=== PATIENT | female | born 1940 | race Caucasian/White ===

== ENCOUNTER 2018-10-20 11:50 | Inpatient (IN) ==
--- NOTE | 2018-10-20 11:52 | Emergency Department Note ---
Disposition Clinical Impression: Hypoxia, Pleural effusion Pneumonia Qualifiers: Pneumonia type: due to unspecified organism Laterality: left Lung location: lower lobe of lung Qualified Code(s): J18.1 - Lobar pneumonia, unspecified organism Disposition: Admitted As Inpatient Time of Disposition: 16:48 General Adult HPI - General Time Seen by Provider: 10/20/18 11:51 - Related Data Home Medications Medication Instructions Recorded Confirmed Donepezil HCl [Aricept] 0 mg PO DAILY 06/01/17 06/01/17 Memantine [Namenda] 0 mg PO HS 06/01/17 06/01/17 Simvastatin [Zocor] 0 mg PO HS 06/01/17 06/01/17 Allergies Allergy/AdvReac Type Severity Reaction Status Date / Time No Known Allergies Allergy Verified 05/31/17 20:54 Past Medical History - Past Medical History Medical history: Reports: dementia - Social History Smoking Status: Never smoker Alcohol use: Reports: rarely Drug use: Reports: none Course Vital Signs Temperature 97.5 F L 10/20/18 11:51 Pulse Rate 88 10/20/18 11:51 Respiratory Rate 14 10/20/18 11:51 Blood Pressure 134/59 10/20/18 11:51 O2 Sat by Pulse Oximetry 94 10/20/18 11:51 Temperature 97.5 F L 10/20/18 11:51 Pulse Rate 74 10/20/18 15:02 Respiratory Rate 24 10/20/18 16:22 Blood Pressure 127/91 10/20/18 15:02 O2 Sat by Pulse Oximetry 100 10/20/18 16:22 Oxygen Delivery Oxygen Delivery Non Rebreather Mask Medical Decision Making - Lab Data Result diagrams: 10/20/18 12:40 10/20/18 12:40 Lab Results 10/20/18 10/20/18 10/20/18 Range/Units 12:40 12:40 12:40 WBC 8.2 (4.3-11.1) K/mcL RBC 4.74 (3.82-4.97) M/mcL Hgb 13.5 (11.5-15.4) g/dL Hct 44.2 (35.3-44.9) % MCV 93.2 (83.0-100.0) fL MCH 28.5 (28.0-33.3) pg MCHC 30.5 L (31.6-35.5) g/dL RDW 13.1 (11.5-14.5) % Plt Count 175 (140-400) K/mcL MPV 9.8 (9.4-12.4) fL Immature Gran % 0.4 (0-4) % Seg Neutrophils % 83.4 % Lymphocytes % 7.3 % Monocytes % 8.7 % Eosinophils % 0.1 % Basophils % 0.1 % Neutrophils # 6.8 (1.6-8.9) K/mcL Lymphocytes # 0.6 (0.6-4.6) K/mcL Monocytes # 0.7 (0.0-1.3) K/mcL Eosinophils # 0.0 (0.0-0.6) K/mcL Basophils # 0.0 (0.0-0.2) K/mcL Sodium 140 (136-145) mEq/L Potassium 3.3 L (3.5-5.1) mEq/L Chloride 98 (98-107) mEq/L Carbon Dioxide 35 H (23-29) mEq/L BUN 17 (8-23) mg/dL Creatinine 0.74 (0.60-1.20) mg/dL Est GFR ( Amer) > 60 (> 60) Est GFR (Non-Af Amer) > 60 (> 60) BUN/Creatinine Ratio 23 (6-26) Glucose 126 H (70-105) mg/dL Calculated Osmolality 293 (280-300) Lactic Acid (0.5-2.2) mmol/L Calcium 9.1 (8.6-10.3) mg/dL Magnesium 2.0 (1.6-2.6) mg/dL Troponin I < 0.03 (< 0.04) ng/mL B-Natriuretic Peptide 64 (Less than 100) pg/mL 10/20/18 Range/Units 12:40 WBC (4.3-11.1) K/mcL RBC (3.82-4.97) M/mcL Hgb (11.5-15.4) g/dL Hct (35.3-44.9) % MCV (83.0-100.0) fL MCH (28.0-33.3) pg MCHC (31.6-35.5) g/dL RDW (11.5-14.5) % Plt Count (140-400) K/mcL MPV (9.4-12.4) fL Immature Gran % (0-4) % Seg Neutrophils % % Lymphocytes % % Monocytes % % Eosinophils % % Basophils % % Neutrophils # (1.6-8.9) K/mcL Lymphocytes # (0.6-4.6) K/mcL Monocytes # (0.0-1.3) K/mcL Eosinophils # (0.0-0.6) K/mcL Basophils # (0.0-0.2) K/mcL Sodium (136-145) mEq/L Potassium (3.5-5.1) mEq/L Chloride (98-107) mEq/L Carbon Dioxide (23-29) mEq/L BUN (8-23) mg/dL Creatinine (0.60-1.20) mg/dL Est GFR ( Amer) (> 60) Est GFR (Non-Af Amer) (> 60) BUN/Creatinine Ratio (6-26) Glucose (70-105) mg/dL Calculated Osmolality (280-300) Lactic Acid 2.2 (0.5-2.2) mmol/L Calcium (8.6-10.3) mg/dL Magnesium (1.6-2.6) mg/dL Troponin I (< 0.04) ng/mL B-Natriuretic Peptide (Less than 100) pg/mL Attestation Statement - Attestation Attestation: I reviewed the residents documentation and agree with the residents assessment and plan of care. I have personally had face to face time with the patient. (Brief History, Brief Exam, and MDM) I personally supervised and was present for the hogan/critical portions of the following procedures completed by the residen t: (add procedures performed here). [id number] time provided Patient arrives by EMS complaining of respiratory symptoms. She appears in no acute respiratory distress upon arrival. I attest to supervising resident physician's interpretation of the ECG
--- NOTE | 2018-10-20 12:00 | Emergency Department Note ---
Disposition Clinical Impression: Pneumonia, Hypoxia, Pleural effusion Disposition: Admitted As Inpatient Time of Disposition: 14:38 General Adult HPI - General Time Seen by Provider: 10/20/18 11:51 Source: family, EMS Mode of arrival: EMS Limitations: no limitations Nursing Notes Reviewed: Yes Vital Signs Reviewed: Yes - History of Present Illness HPI Narrative: 78F with PMHx of dementia presents to the emergency department via EMS from [facility] with the complaint of hypoxia and suspected pneumonia. Patient is unable to give any reliable history secondary to her history of dementia. Daughter is in room and states that the patient has been coughing more than normal lately and she is not normally on oxygen at [place] but she had been hypoxic today and requiring oxygen. Upon arrival EMS noted that she was hypoxic on 5 L nasal cannula. The highest she was 4 EMS was 95%. Patient denies any complaints at this time. Patient has been referred to pulmonology but will not be able to see them until December, her last chest x-ray taken less than a month ago suggests obtaining a noncontrast CT scan for further evaluation of her lung status as she has chronic calcifications and other infiltrates. - Related Data Home Medications Medication Instructions Recorded Confirmed Donepezil HCl [Aricept] 0 mg PO DAILY 06/01/17 06/01/17 Memantine [Namenda] 0 mg PO HS 06/01/17 06/01/17 Simvastatin [Zocor] 0 mg PO HS 06/01/17 06/01/17 Allergies Allergy/AdvReac Type Severity Reaction Status Date / Time No Known Allergies Allergy Verified 05/31/17 20:54 Limitations: ROS unobtainable due to patients medical condition Past Medical History - Past Medical History Source: old records reviewed, obtained from family Medical history: Reports: dementia - Social History Smoking Status: Never smoker Alcohol use: Reports: rarely Drug use: Reports: none Physical Exam - General Limitations: no limitations General appearance: alert, in no apparent distress - Head Head exam: atraumatic, normocephalic - Eye Eye exam: Present: normal appearance, EOMI - Chest Chest inspection: Present: normal inspection. Absent: tenderness, rash - Respiratory Respiratory exam: Present: other (diminished breath sounds throughout all lung michele). Absent: respiratory distress, wheezes, accessory muscle use - Cardiovascular Cardiovascular exam: Present: regular rate, normal rhythm - Abdominal Exam Abdominal exam: Present: soft, Non-Tender. Absent: distention, guarding, rebound, rigidity - Extremities Exam Extremities exam: Present: normal inspection. Absent: tenderness, pedal edema - Neurological Exam Neurological exam: Present: alert, oriented X3 - Psychiatric Psychiatric exam: Present: normal affect, normal mood - Skin Skin exam: Present: warm, dry, intact Course Vital Signs Temperature 97.5 F L 10/20/18 11:51 Pulse Rate 88 10/20/18 11:51 Respiratory Rate 14 10/20/18 11:51 Blood Pressure 134/59 10/20/18 11:51 O2 Sat by Pulse Oximetry 94 10/20/18 11:51 Temperature 97.5 F L 10/20/18 11:51 Pulse Rate 75 10/20/18 14:14 Respiratory Rate 26 10/20/18 14:14 Blood Pressure 117/56 10/20/18 14:14 O2 Sat by Pulse Oximetry 83 10/20/18 14:14 Oxygen Delivery Oxygen Delivery Room Air Medical Decision Making - MDM Narrative Medical decision making narrative: [facility] with hypoxia and suspected pneumonia. I asked her chest x-rays in the past that showed calcified lesions we will obtain a CAT scan of her chest for further clarification of these lesions and to better demonstrate her lung condition. We will also obtain basic labs, EKG, troponin, lactic and blood cultures due to the patient being from a jail. 1352 - patient's CAT scan demonstrates signs of a left pleural effusion with associated pneumonia. Labs do not show any acute abnormalities. Patient will be started on then, Zosyn and Levaquin for her healthcare associated pneumonia. Disposition will be to admit the patient to the hospital due to her hypoxemia and pneumonia. She is currently satting 99% on nonrebreather. 1436 - patient was taken off the nonrebreather to see what her oxygenation status was on room air and it was measured at 83%. Patient will be placed back on the nonrebreather this was helping with her breathing status. Family would like to have pulmonology see her while she is in the hospital therefore we have placed upon consult and Dr. Philip was made aware of this patient. pt has been accepted to the hospital by Dr. Pichardo - Medical Records Medical records reviewed: Yes I reviewed the patient's medical records. - Lab Data Lab results reviewed: Yes I reviewed the patient's lab results. Result diagrams: 10/20/18 12:40 10/20/18 12:40 Lab Results 10/20/18 10/20/18 10/20/18 Range/Units 12:40 12:40 12:40 WBC 8.2 (4.3-11.1) K/mcL RBC 4.74 (3.82-4.97) M/mcL Hgb 13.5 (11.5-15.4) g/dL Hct 44.2 (35.3-44.9) % MCV 93.2 (83.0-100.0) fL MCH 28.5 (28.0-33.3) pg MCHC 30.5 L (31.6-35.5) g/dL RDW 13.1 (11.5-14.5) % Plt Count 175 (140-400) K/mcL MPV 9.8 (9.4-12.4) fL Immature Gran % 0.4 (0-4) % Seg Neutrophils % 83.4 % Lymphocytes % 7.3 % Monocytes % 8.7 % Eosinophils % 0.1 % Basophils % 0.1 % Neutrophils # 6.8 (1.6-8.9) K/mcL Lymphocytes # 0.6 (0.6-4.6) K/mcL Monocytes # 0.7 (0.0-1.3) K/mcL Eosinophils # 0.0 (0.0-0.6) K/mcL Basophils # 0.0 (0.0-0.2) K/mcL Sodium 140 (136-145) mEq/L Potassium 3.3 L (3.5-5.1) mEq/L Chloride 98 (98-107) mEq/L Carbon Dioxide 35 H (23-29) mEq/L BUN 17 (8-23) mg/dL Creatinine 0.74 (0.60-1.20) mg/dL Est GFR ( Amer) > 60 (> 60) Est GFR (Non-Af Amer) > 60 (> 60) BUN/Creatinine Ratio 23 (6-26) Glucose 126 H (70-105) mg/dL Calculated Osmolality 293 (280-300) Lactic Acid (0.5-2.2) mmol/L Calcium 9.1 (8.6-10.3) mg/dL Magnesium 2.0 (1.6-2.6) mg/dL Troponin I < 0.03 (< 0.04) ng/mL B-Natriuretic Peptide 64 (Less than 100) pg/mL 10/20/18 Range/Units 12:40 WBC (4.3-11.1) K/mcL RBC (3.82-4.97) M/mcL Hgb (11.5-15.4) g/dL Hct (35.3-44.9) % MCV (83.0-100.0) fL MCH (28.0-33.3) pg MCHC (31.6-35.5) g/dL RDW (11.5-14.5) % Plt Count (140-400) K/mcL MPV (9.4-12.4) fL Immature Gran % (0-4) % Seg Neutrophils % % Lymphocytes % % Monocytes % % Eosinophils % % Basophils % % Neutrophils # (1.6-8.9) K/mcL Lymphocytes # (0.6-4.6) K/mcL Monocytes # (0.0-1.3) K/mcL Eosinophils # (0.0-0.6) K/mcL Basophils # (0.0-0.2) K/mcL Sodium (136-145) mEq/L Potassium (3.5-5.1) mEq/L Chloride (98-107) mEq/L Carbon Dioxide (23-29) mEq/L BUN (8-23) mg/dL Creatinine (0.60-1.20) mg/dL Est GFR ( Amer) (> 60) Est GFR (Non-Af Amer) (> 60) BUN/Creatinine Ratio (6-26) Glucose (70-105) mg/dL Calculated Osmolality (280-300) Lactic Acid 2.2 (0.5-2.2) mmol/L Calcium (8.6-10.3) mg/dL Magnesium (1.6-2.6) mg/dL Troponin I (< 0.04) ng/mL B-Natriuretic Peptide (Less than 100) pg/mL - Radiology Data Radiology results reviewed: Yes I reviewed the patient's radiology results. - EKG Data EKG #1 EKG attestation: Yes I reviewed and interpreted this EKG. EKG results narrative: EKG obtained at 1206 on Heart rate 85 bpm, CO interval 145, QRS duration 87, QT 368, QTC 438 Sinus rhythm with 1 PVC noted. No signs of ST segment elevations or depressions. No other T-wave abnormalities. No significant changes when compared to previous EKG dated 06/01/2017.
[2018-10-20] MEDS ORDERED: Piperacillin/Tazobactam 3.375 GM in 0.9 % Sodium Chloride Mini Bag 100 ML IVPB ONE (13:01)
[2018-10-20] MEDS ORDERED: levoFLOXacin 750 MG/150 ML 750 MG/150 ML BAG IVPB ONE (13:01)
[2018-10-20 13:03] LABS: Basophils % 0.1 %; Eosinophils % 0.1 %; Hematocrit 44.2 % (35.3-44.9); Hemoglobin 13.5 g/dL (11.5-15.4); Immature Granulocytes % 0.4 % (0-4); Lymphocytes # 0.6 K/mcL (0.6-4.6); Lymphocytes % 7.3 %; Mean Corpuscular HGB Conc 30.5 g/dL (31.6-35.5); Mean Corpuscular Hemoglobin 28.5 pg (28.0-33.3); Mean Corpuscular Volume 93.2 fL (83.0-100.0); Mean Platelet Volume 9.8 fL (9.4-12.4); Monocytes # 0.7 K/mcL (0.0-1.3); Monocytes % 8.7 %; Neutrophils # 6.8 K/mcL (1.6-8.9); Platelet Count 175 K/mcL (140-400); Red Blood Count 4.74 M/mcL (3.82-4.97); Red Cell Distribution Width 13.1 % (11.5-14.5); Segmented Neutrophils % 83.4 %; White Blood Count 8.2 K/mcL (4.3-11.1)
[2018-10-20 13:21] LABS: BUN/Creatinine Ratio 23 (6-26); Blood Urea Nitrogen 17 mg/dL (8-23); Calcium 9.1 mg/dL (8.6-10.3); Carbon Dioxide 35 mEq/L (23-29); Chloride 98 mEq/L (98-107); Glucose 126 mg/dL (70-105); Osmolality,Calculated 293 (280-300); Potassium 3.3 mEq/L (3.5-5.1); Sodium 140 mEq/L (136-145); eGFR For African Americans > 60 (> 60); eGFR For Non-African Americans > 60 (> 60)
[2018-10-20 13:23] LABS: Troponin I < 0.03 ng/mL (< 0.04)
--- NOTE | 2018-10-20 13:49 | Electrocardiograph Report ---
[address] [place] [address] Test Date: 2018-10-20 Pat Name: Nicky Shannon Department: [id number] Room: Gender: F General Internist And Physician Leader: : 1940 Requested By: Analilia Parr Order Number: [id number] Reading MD: Zaida Hutchinson Measurements Intervals [place] Rate: 85 P: 47 WV: 145 QRS: 25 QRSD: 87 T: 72 QT: 368 QTc: 438 Interpretive Statements Sinus rhythm Ventricular premature complex Left atrial enlargement Anteroseptal infarct, age indeterminate Electronically Signed On 10-20-2018 13:47:16 EDT by Zaida Hutchinson
[2018-10-20] MEDS ORDERED: Naloxone 0.4 MG/ML INJ IVP PRN (15:54)
[2018-10-20] MEDS ORDERED: Ipratropium/Albuterol Neb 3 ML IH ONE (15:54)
--- NOTE | 2018-10-20 16:15 | Internal Med History&Physical ---
Date of Encounter: 10/20/18 Time of Encounter: 16:10 Internal Medicine - H&P: HPI Chief complaint: Shortness of breath Admitted From: Long-term Nursing Facility Plans for Post Hospital Care: Transfer Long Term Facility History of present illness: Ms. Shannon is a 78 year old female with a past medical history of recurrent pneumonias, hypertension, hyperlipidemia, mild to moderate dementia, status post right radical mastectomy for breast cancer (remote history). She presented with progressively worsening shortness of breath of about 3 weeks' duration. Per patient's daughter who is a home health nurse, she was informed by the senior living about 2 weeks ago that her mother has been observed to be more short of breath than usual and chest x-rays performed showed a pneumonia with some effusion. Patient was started on Levaquin and steroids but has progressively worsened and desaturated into the 80s today which prompted senior living staff to transfer her for further management. Patient denies chest pain, palpitations, fever and chills. She admits occasional productive cough. She describes as thick and yellow. Past Med Surg Social Fam HX - Past Medical History Medical history: cancer (Right breast. Status post radical mastectomy), COPD, dementia, hyperlipidemia, hypertension Psychiatric history: no psych history - Past Surgical History Additional surgical history: Abdominal Anurism, Right side mastectomy, Right Knee Replacement - Social History Smoking Status: Former smoker Packs per day: Used to smoke a pack per day until she quit 20 years ago Alcohol use: rarely Drug use: none - Additional Family History Additional family history: No family history of malignancies. Internal Medicine - H&P: Meds Donepezil HCl [Aricept] 0 mg PO DAILY 06/01/17 [History] Memantine [Namenda] 0 mg PO HS 06/01/17 [History] Simvastatin [Zocor] 0 mg PO HS 06/01/17 [History] Allergy/AdvReac Type Severity Reaction Status Date / Time No Known Allergies Allergy Verified 05/31/17 20:54 All Systems PM: A 10-system review of systems was performed and is negative for pertinent findings except as documented above in the HPI. Review of systems: GENERAL: No fever and chills HEENT: No rhinorrhea, No sore throat, No ear pain or discharge, No dysphagia or odynophagia PULMONARY: Admits occasional productive cough, No chest pain, admits dyspnea on exertion CARDIOVASCULAR: No chest pain, no palpitations, , No PND, admits orthopnea GASTROINTESTINAL: No abdominal pain, No nausea, No vomiting, No constipation, No diarrhea, No hematemesis, No hematochezia MUSKULOSKELETAL: Patient has observed occasional pedal swelling but not currently, No pain INTEGUMENTARY: No new skin lesions NERVOUS SYSTEM: No Dizziness, No weakness, No slurred speech, No diplopia or blurred/ loss vision, No numbness, No tinglng sensation. - Constitutional Vitals: Temp Pulse Resp BP Pulse Ox 36.4 C L 74 24 127/91 98 10/20/18 11:51 10/20/18 15:02 10/20/18 15:02 10/20/18 15:02 10/20/18 15:02 Exam: GENERAL: Mild respiratory distress on a rebreather mask. Alert and Oriented 2 (baseline) HEENT: EOMI, PERRLA MOUTH: Moist oral mucosa NECK:No JVD, No lymph nodes. CHEST AND LUNGS: Normal breath sounds, no wheezes or crackles HEART: S1 and S2 normal, no murmurs ABDOMEN: Soft, nontender, no organomegaly SKIN: Normal color, no rahses, no lesions EXTREMITIES: No deformity, no edema, no tenderness, no joint swelling or clubbing NEUROLOGICAL: Oriented to place and person but not to time normal motor and sensory exam. PSYCHE: Pleasant Internal Med - H&P Results - Labs CBC & Chem 7: 10/20/18 12:40 10/20/18 12:40 Labs: Short CBC 10/20/18 Range/Units 12:40 WBC 8.2 (4.3-11.1) K/mcL Hgb 13.5 (11.5-15.4) g/dL Hct 44.2 (35.3-44.9) % Plt Count 175 (140-400) K/mcL Neutrophils # 6.8 (1.6-8.9) K/mcL BMP 10/20/18 12:40 Sodium 140 Potassium 3.3 L Chloride 98 Carbon Dioxide 35 H BUN 17 Creatinine 0.74 Glucose 126 H Calcium 9.1 Cardiac Enzymes 10/20/18 Range/Units 12:40 Troponin I < 0.03 (< 0.04) ng/mL - Impressions ITS Impressions Chest CT 10/20/18 11:58 IMPRESSION: 1. Moderate-sized left pleural effusion, with findings concerning for left lower lobe pneumonia. Radiographic follow-up until resolution is recommended. 2. Small pericardial effusion. 3. Moderate to severe emphysema. 4. Coronary atherosclerosis. D/ / 10/20/2018 12:58:57 Isaac Chapman MD / bcarter Interpreting Provider: Isaac Chapman MD - Assessment and Plan (1) Acute on chronic respiratory failure with hypoxia and hypercapnia Current Visit: Yes Status: Acute Assessment and plan: Patient is a former smoker who used to smoke a pack a day and quit about 20 years ago. She presented with progressively worsening shortness of breath and required intranasal oxygen today to keep her saturation above 83%. I suspect patient has chronic CO2 retention because her chemistry profile shows metabolic alkalosis. On encounter patient was saturating 98% on 4 L with a rebreather mask. CT scan on admission shows moderate-sized pleural effusion, with findings concerning for left lower lobe pneumonia. Small pericardial effusion. Moderate to severe emphysema. Coronary atherosclerosis. WBC normal, vitals stable. We will continue to titrate oxygen per patient's needs. Pulmonology consulted for pleural effusion. Antibiotics for pneumonia. She received Zosyn and Levaquin in the ER. Will switch to ceftriaxone and azithromycin. (2) Pneumonia Current Visit: Yes Status: Acute Assessment and plan: Management as above. CT findings concerning for left lower lobe pneumonia. We will be switching Zosyn and Levaquin to ceftriaxone and azithromycin. Qualifiers: Pneumonia type: due to unspecified organism Laterality: left Lung locat ion: lower lobe of lung Qualified Code(s): J18.1 - Lobar pneumonia, unspecified organism (3) Pleural effusion Current Visit: Yes Status: Acute Assessment and plan: Patient has a history of recurrent pneumonias and right breast cancer status post radical mastectomy. I personally looked at the chest CT scan. There is a moderate to large sized pleural effusion on the left. Pulmonology consulted. (4) COPD exacerbation Current Visit: Yes Status: Acute Assessment and plan: Also patient denies a history of COPD. She has a significant smoking history and CT findings of moderate to severe emphysema. No wheezing on auscultation We will start as needed breathing treatments. Decision of steroids will be left pulmonology (5) Aortic stenosis Current Visit: Yes Status: Suspected Assessment and plan: Patient has a loud systolic murmur in the second right intercostal space radiating to carotids. Patient and daughter admits occasional bipedal swelling. She denies palpitat ions and lightheadedness. We will order an echo. Qualifiers: Cardiac valve disease etiology: etiology unspecified Qualified Code(s): I35.0 - Nonrheumatic aortic (valve) stenosis (6) Hypertension Current Visit: Yes Status: Chronic Assessment and plan: Resume home meds Monitor. Qualifiers: Hypertension type: essential hypertension Qualified Code(s): I10 - Essential (primary) hypertension (7) Hyperlipidemia Current Visit: Yes Status: Chronic Assessment and plan: Resume statins. Qualifiers: Hyperlipidemia type: mixed hyperlipidemia Qualified Code(s): E78.2 - Mixed hyperlipidemia (8) Dementia Current Visit: Yes Status: Chronic Assessment and plan: Patient currently not on any meds. According to daughter they tried using donepezil patches which patient had severe allergic reactions to. Qualifiers: Dementia type: unspecified type Dementia behavioral disturbance: without behavioral disturbance Qualified Code(s): F03.90 - Unspecified dementia withou t behavioral disturbance (9) Hypokalemia Current Visit: Yes Status: Acute Assessment and plan: Patient has a potassium of 3.3 We will correct Monitor. (10) DVT prophylaxis Current Visit: Yes Status: Acute Assessment and plan: Subcutaneous heparin - Time Spent With Patient Total time spent is greater than 50% in coordination of care (as documented) at patient's floor/unit and/or counseling patient:
[2018-10-20] MEDS ORDERED: Ipratropium/Albuterol Neb 3 ML IH PRN (16:58)
[2018-10-20 17:02] LABS: Bilirubin,Urine Negative (Negative); Blood,Urine Negative (Negative); Clarity,Urine Clear (Clear); Color,Urine Yellow (Yellow); Glucose,Urine (UA) Normal (Normal); Ketones,Urine Negative (Negative); Leukocyte Esterase,Urine Negative (Negative); Nitrite,Urine Negative (Negative); PH,Urine 5.5 pH Units (5.0-8.0); Protein,Urine Trace mg/dL (Neg-Trace); Specific Gravity,Urine 1.027 (1.010-1.025); Urobilinogen,Urine Normal (Normal)
[2018-10-20 17:19] LABS: VBG HCO3 33 mEq/L (21-27); VBG PCO2 52 mmHg (41-51); VBG PH 7.41 pH Units (7.32-7.42); VBG PO2 68 mmHg (25-50)
[2018-10-21] MEDS: *HR* Heparin 5,000 UNIT/ML VIAL SQ SCH ×4 (00:34→21:00)
[2018-10-21 03:54] LABS: ABG Base Excess 9 mEq/L (-2 to 3); ABG HCO3 34 mEq/L (21-27); ABG Oxygen Saturation 96 % (95-98); ABG PCO2 51 mmHg (35-45); ABG PH 7.43 pH Units (7.32-7.45); ABG PO2 82 mmHg (85-104); ABG TCO2 36 mEq/L (20-26)
[2018-10-21 06:46] LABS: Hematocrit 40.6 % (35.3-44.9); Hemoglobin 12.5 g/dL (11.5-15.4); Mean Corpuscular HGB Conc 30.8 g/dL (31.6-35.5); Mean Corpuscular Hemoglobin 28.8 pg (28.0-33.3); Mean Corpuscular Volume 93.5 fL (83.0-100.0); Mean Platelet Volume 9.7 fL (9.4-12.4); Platelet Count 170 K/mcL (140-400); Red Blood Count 4.34 M/mcL (3.82-4.97); Red Cell Distribution Width 13.2 % (11.5-14.5); White Blood Count 7.3 K/mcL (4.3-11.1)
[2018-10-21 07:05] LABS: BUN/Creatinine Ratio 19 (6-26); Blood Urea Nitrogen 14 mg/dL (8-23); Calcium 8.7 mg/dL (8.6-10.3); Carbon Dioxide 34 mEq/L (23-29); Chloride 100 mEq/L (98-107); Glucose 133 mg/dL (70-105); Osmolality,Calculated 294 (280-300); Potassium 4.1 mEq/L (3.5-5.1); Sodium 141 mEq/L (136-145); eGFR For African Americans > 60 (> 60); eGFR For Non-African Americans > 60 (> 60)
[2018-10-21] MEDS: cefTRIAXone 2,000 MG in Water for inj. (sterile) 20 ML IVP SCH (08:59)
[2018-10-21] MEDS ORDERED: Azithromycin 500 MG in 0.9 % Sodium Chloride 250 ML IVPB SCH (09:00)
--- NOTE | 2018-10-21 10:17 | Internal Med Progress Note ---
Hospitalist Progress Note - Encounter Date of Encounter: 10/21/18 Time of Encounter: 07:45 - Subjective Interval History: No acute events overnight. Patient admits cough and SOB but denies chest pain, fever and chills. She remains on high flow oxygen by mask. - Exam Vitals: Temp Pulse Resp BP Pulse Ox 37.0 C 88 22 139/68 94 10/21/18 06:35 10/21/18 06:35 10/21/18 06:35 10/21/18 06:35 10/21/18 08:47 Exam: GENERAL: Mild respiratory distress on high flow O2 via oxy mask. Alert and Oriented 2 (baseline) HEENT: EOMI, PERRLA MOUTH: Moist oral mucosa NECK:No JVD, No lymph nodes. CHEST AND LUNGS: Bronchial breath sounds in left middle and lower zones. No wheezing HEART: S1 and S2 normal, no murmurs ABDOMEN: Soft, nontender, no organomegaly SKIN: Normal color, no rashes, no lesions EXTREMITIES: No deformity, no edema, no tenderness, no joint swelling or clubb ing NEUROLOGICAL: Oriented to place and person but not to time. Normal motor and sensory exam. PSYCHE: Pleasant - Assessment and Plan (1) Acute on chronic respiratory failure with hypoxia and hypercapnia Current Visit: Yes Status: Acute Assessment and Plan: Currently on 12L/min O2 via oxymask. Vitals remain stable ABG showed moderate respiratory acidosis and hypoxia with normal pH. This confirms chronic CO2 retention with compensatory metabolic alkalosis. CT scan on admission shows moderate-sized pleural effusion, with findings concerning for left lower lobe pneumonia. Small pericardial effusion. Moderate to severe emphysema. Coronary atherosclerosis. WBC normal We will continue to titrate oxygen per patient's needs. Pulmonology consulted for pleural effusion. On IV Ceftriaxone and Azithromycin (2) Pneumonia Current Visit: Yes Status: Acute Assessment and Plan: Management as above. CT findings concerning for left lower lobe pneumonia. On ceftriaxone and azithromycin. (3) Pleural effusion Current Visit: Yes Status: Acute Assessment and Plan: Patient has a history of recurrent pneumonias and right breast cancer status post radical mastectomy. CT scan shows moderate to large sized pleural effusion on the left. Pulmonology consulted. (4) COPD exacerbation Current Visit: Yes Status: Acute Assessment and Plan: Also patient denies a history of COPD. She has a significant smoking history and CT findings of moderate to severe emphysema. No wheezing on auscultation We will start as needed breathing treatments. Decision of steroids will be left to pulmonology (5) Aortic stenosis Current Visit: Yes Status: Suspected Assessment and Plan: Patient has a loud systolic murmur in the second right intercostal space radiating to carotids. Echo findings: EF of 50%, moderate aortic stenosis, indeterminate left diastolic function. Normal right ventricular structure and function, mild concentric left ventricular hypertrophy, mild aortic regurg with no evidence of pulmonary hypertension We will monitor (6) Hypertension Current Visit: Yes Status: Chronic Assessment and Plan: Resume home meds Monitor. (7) Hyperlipidemia Current Visit: Yes Status: Chronic Assessment and Plan: Resume statins. (8) Dementia Current Visit: Yes Status: Chronic Assessment and Plan: Patient currently not on any meds. According to daughter they tried using donepezil patches which patient had severe allergic reactions to. Continue Memantine. (9) Hypokalemia Current Visit: Yes Status: Resolved Assessment and Plan: Resolved K 4.1 Monitor (10) DVT prophylaxis Current Visit: Yes Status: Acute Assessment and Plan: Subcutaneous heparin - Time Spent with Patient Total time spent is greater than 50% in coordination of care (as documented) at patient's floor/unit and/or counseling patient: Internal Medicine: Result - Labs CBC & Chem 7: 10/21/18 05:58 10/21/18 05:58 Labs: Short CBC 10/20/18 10/21/18 Range/Units 12:40 05:58 WBC 8.2 7.3 (4.3-11.1) K/mcL Hgb 13.5 12.5 (11.5-15.4) g/dL Hct 44.2 40.6 (35.3-44.9) % Plt Count 175 170 (140-400) K/mcL Neutrophils # 6.8 (1.6-8.9) K/mcL BMP 10/20/18 10/21/18 12:40 05:58 Sodium 140 141 Potassium 3.3 L 4.1 Chloride 98 100 Carbon Dioxide 35 H 34 H BUN 17 14 Creatinine 0.74 0.72 Glucose 126 H 133 H Calcium 9.1 8.7 Cardiac Enzymes 10/20/18 Range/Units 12:40 Troponin I < 0.03 (< 0.04) ng/mL Urine 08/26/19 Range/Units 16:46 Urine Color Yellow (Yellow) Urine Clarity Clear (Clear) Urine pH 5.5 (5.0-8.0) pH Units Ur Specific [place] 1.027 H (1.010-1.025) Urine Protein Trace (Neg-Trace) mg/dL Urine Glucose (UA) Normal (Normal) mg/dL - ABG Interpretation ABG results: ABG ABG pH 7.43 pH Units (7.32-7.45) 10/21/18 03:49 ABG pCO2 51 mmHg (35-45) H 10/21/18 03:49 ABG pO2 82 mmHg (85-104) L 10/21/18 03:49 ABG O2 Saturation 96 % (95-98) 10/21/18 03:49 - Impressions Impressions Chest CT 10/20/18 11:58 IMPRESSION: 1. Moderate-sized left pleural effusion, with findings concerning for left lower lobe pneumonia. Radiographic follow-up until resolution is recommended. 2. Small pericardial effusion. 3. Moderate to severe emphysema. 4. Coronary atherosclerosis. D/ / 10/20/2018 12:58:57 Isaac Chapman MD / yoshi Interpreting Provider: Isaac Chapman MD Echocardiogram 10/20/18 16:59 Impressions: LVEF 50%. Indeterminate diastolic function. Normal right ventricular structure and function. Mild concentric left ventricular hypertrophy. Aortic valve not well visualized. Moderate aortic stenosis. Peak aortic velocity and mean gradient are 3.26m/s and 23 mmHg, respectively. Mild aortic regurgitation. No evidence of pulmonary hypertension. Left Ventricular Wall Motion: Rest Echo Findings All wall segments showed normal motion. Findings: Study Quality * Technically sub-optimal due to poor echocardiographic windows. ECG Findings * Paced rhythm. Left Ventricle * LVEF 50%. * Normal LV chamber size. * Indeterminate diastolic function. * Atypical septal motion consistent with bundle branch block. * Mild concentric left ventricular hypertrophy. Right Ventricle * Normal right ventricular structure and function. Left Atrium * Normal left atrial size. Right Atrium * Normal right atrial size. Interatrial Septum * No evidence of PFO with agitated saline contrast. Aortic Valve * Aortic valve not well visualized. * Moderate aortic stenosis. Peak aortic velocity and mean gradient are 3.26m/s and 23 mmHg, respectively. * * Mild aortic regurgitation. Mitral Valve * Trace mitral regurgitation. * No mitral stenosis. * Mitral valve not well visualized. Tricuspid Valve * Trace tricuspid regurgitation. * No tricuspid stenosis. * No evidence of pulmonary hypertension. * Tricuspid valve not well visualized. Pulmonic Valve * Pulmonic valve not well visualized. Aorta * Normally sized aortic root. Pericardium * The pericardium appears normal. IVC * The IVC is not well evaluated. Pulmonary Artery * Pulmonary artery not well visualized. Consult Discharge Plan - Plan Referrals: Nasima Pascual, [employer] [Primary Care Provider] - (2) Pneumonia Qualifiers: Pneumonia type: due to unspecified organism Laterality: left Lung location: lower lobe of lung Qualified Code(s): J18.1 - Lobar pneumonia, unspecified organism (5) Aortic stenosis Qualifiers: Cardiac valve disease etiology: etiology unspecified Qualified Code(s): I35.0 - Nonrheumatic aortic (valve) stenosis (6) Hypertension Qualifiers: Hypertension type: essential hypertension Qualified Code(s): I10 - Essential (primary) hypertension (7) Hyperlipidemia Qualifiers: Hyperlipidemia type: mixed hyperlipidemia Qualified Code(s): E78.2 - Mixed hyperlipidemia (8) Dementia Qualifiers: Dementia type: unspecified type Dementia behavioral disturbance: without behavioral disturbance Qualified Code(s): F03.90 - Unspecified dementia without behavioral disturbance
--- NOTE | 2018-10-21 11:25 | Pulmonology Consult Note ---
<Chandu Husain - Last Filed: 10/21/18 15:10> Date of Encounter: 10/21/18 Time of Encounter: 09:00 Assessment and Plan (1) Acute on chronic respiratory failure with hypoxia and hypercapnia Current Visit: Yes Status: Acute Patient presented with acute hypoxic respiratory failure. Unable to maintain SPO2 greater than 80% prior to admission. In the ED was started on 6 L nasal cannula, SPO2 94%. Currently requiring 12 L/m O2 via oxygen mask to maintain SPO2 greater than 88%. She does have a remote history of significant tobacco abuse but denies any knowledge of COPD and does not follow with a banana handler. CT chest did reveal evidence of centrilobular as well as paraseptal emphysematous changes consistent with diagnosis of COPD. Additionally, there was a moderate left sided pleural effusion revealed with possible left lower lobe consolidation noted. ABG revealed respiratory acidosis with metabolic alkalosis and normal pH. Plan: -Diagnostic thoracentesis to be performed tomorrow morning, discussed w/POA daughter Crystal who will provide consent -Continue with oxymask and supplemental O2 to maintain SpO2 greater than 88% -Continue ABX per current regimen -Urinary Strep Pneumo and legionella antigens -Procalcitonin -Prednisone 30mg added as well (2) COPD exacerbation Current Visit: Yes Status: Acute Patient does have extensive centrilobular and paraseptal emphysematous changes on CT imaging. Has significant history of Tobacco Abuse but did quit >10yrs ago. Currently not exhibiting significant wheezing or rhonchi on exam but likely contributing to chronic respiratory failure and acutely decompensated hypoxia/hypercapnia. -Will add Presdnisone 30mg -Continue Azithromycin for additional ant-inflammatory effect in addition to atypical CAP coverage (3) Pleural effusion Current Visit: Yes Status: Acute As demonstrated on CT Chest Remote history of Breast cancer plus significant smoking history increase risk for malignant cause Plan for diagnostic thoracentesis tomorrow morning (4) Pneumonia Current Visit: Yes Status: Acute Possible Left Lower Lobe focal consolidation identified on CT Chest Afebrile, non-Tachycardic, RR normal, no WBC Risk factors include residing in long-term, recent steroid use and Severe COPD Plan: -Continue ABX per current regimen -Supplemental O2 -Rest of plan as above Qualifiers: Pneumonia type: due to unspecified organism Laterality: left Lung location: lower lobe of lung Qualified Code(s): J18.1 - Lobar pneumonia, unspecified organism History of Present Illness Consult date: 10/21/18 Reason for consult: COPD, pneumonia, pleural effusion Chief complaint: Shortness of breath History of present illness: Mrs. Shannon is an 78-year-old female with past medical history of COPD, dementia, HLD, HTN, prior tobacco abuse, remote cancer history presents with complaint of increasing shortness of breath over the previous 3 weeks. Patient resides in a long-term staff had informed daughter that patient's respiratory status had been declining and she was observed to be increasingly short of breath with worsening cough, with thick yellow sputum production. A chest x-ray was obtained by nursing staff who stated that the patient had a pneumonia with some evidence of pleural effusions. Patient was started on Levaquin and steroids but progressively worsened. Prior to admission to the emergency department patient was noted to be desaturating at 80% in the morning. Patient denies any subjective fevers, chest pain, chills, nausea, vomiting, wheezing. In the emergency department, vitals reveal heart rate 88, respiratory rate 14, blood pressure 134/59, SPO2 94% on 6 L oxygen, temperature 97.5. Labs were negative for leukocytosis, potassium was 3.3, CO2 35. ABG revealed pH 7.43, PCO2 51 and PO2 82, bicarbonate 34; consistent with respiratory acidosis and metabolic alkalosis consistent with chronic hypercapnic respiratory failure. Urinalysis was obtained and was bland. Chest CT was obtained and revealed moderate size left pleural effusion with consolidation and atelectasis in the left lower lobe. Additionally demonstrated moderate to severe emphysematous changes. Patient did receive vancomycin and Zosyn in the emergency department for possible hospital-acquired pneumonia as patient does reside in a long-term. However today patient was switched over to ceftriaxone and azithromycin. Past Med Surg Social Fam HX - Past Medical History Medical history: cancer, COPD, dementia, hyperlipidemia, hypertension Psychiatric history: no psych history - Past Surgical History Additional surgical history: Abdominal Anurism, Right side mastectomy, Right Knee Replacement - Social History Smoking Status: Former smoker Packs per day: Used to smoke a pack per day until she quit 20 years ago Alcohol use: none Drug use: none Medications and Allergies Memantine [Namenda] 5 mg PO HS 06/01/17 [History] Acetaminophen [Tylenol] 650 mg PO Q4H PRN 10/21/18 [History] Amlodipine Besylate 10 mg PO DAILY 10/21/18 [History] Atorvastatin [Lipitor] 40 mg PO HS 10/21/18 [History] Calcium Carbonate [Calcium] 1,200 mg PO DAILY 10/21/18 [History] Docusate [Colace] 200 mg PO HS PRN 10/21/18 [History] Ipratropium/Albuterol Neb [Duoneb] 3 ml IH Q4HR PRN 10/21/18 [History] MOM Conc [Milk of Magnesia Conc] 30 - 60 ml PO DAILY PRN 10/21/18 [History] Polyethylene Glycol 3350 [MiraLAX] 17 gm PO DAILY PRN 10/21/18 [History] Rivastigmine Tartrate (oral) [Exelon] 6 mg PO BID 10/21/18 [History] Sertraline [Zoloft] 25 mg PO DAILY 10/21/18 [History] traZODone [TraZODone] 50 mg PO HS 10/21/18 [History] Allergy/AdvReac Type Severity Reaction Status Date / Time No Known Allergies Allergy Verified 10/21/18 07:47 All Systems: The remainder of the systems were reviewed and are negative - Constitutional Constitutional: fatigue, no chills, no weakness - EENT Nose, mouth and throat: no dizziness, no headache(s), no sore throat - Cardiovascular Cardiovascular: dyspnea, dyspnea on exertion, no chest pain at rest, no chest pain with activity, no diaphoresis, no edema, no palpitations, no rapid heart rate, no syncope - Respiratory Respiratory: cough, dyspnea, dyspnea on exertion, excessive phlegm production, change in phlegm color, no hemoptysis, no wheezing, no pain on inspirtation, no pain with cough - Gastrointestinal Gastrointestinal: no abdominal pain, no diarrhea, no fecal incontinence, no nausea, no vomiting - Genitourinary Genitourinary: no dysuria, no flank pain Physical Examination Vital Signs: Vital Signs, Last 4 Hours Temp Pulse Resp BP Pulse Ox 10/21/18 10:38 97.9 F 85 19 137/67 94 10/21/18 08:47 94 General appearance: alert, appears uncomfortable Eyes: nonicteric ENT: oropharynx moist Neck: supple, no lymphadenopathy, no JVD Effort: mildly labored Auscultation: left: diminished breath sounds (at the bases), bilateral: clear (no wheezes rales or rhonchi) Cardiovascular: regular rate and rhythm, other (no murmurs gallops or rubs) Gastrointestinal: normoactive bowel sounds, soft, non-tender Integumentary: normal, other (no rash) Extremities: no cyanosis, pink and warm, pulses normal, edema (mild +1 peripheral edema) Musculoskeletal: no deformities Gait: other (unable to assess) non-focal exam, pupils equal and round, motor strength normal and symmetric, other (mild to moderate dementia noted) mood appropriate, affect normal Results - Laboratory Findings CBC and BMP: 10/21/18 05:58 10/21/18 05:58 ABG ABG pH 7.43 pH Units (7.32-7.45) 10/21/18 03:49 ABG pCO2 51 mmHg (35-45) H 10/21/18 03:49 ABG pO2 82 mmHg (85-104) L 10/21/18 03:49 ABG O2 Saturation 96 % (95-98) 10/21/18 03:49 Abnormal lab findings: Abnormal lab results MCHC 30.8 g/dL (31.6-35.5) L 10/21/18 05:58 ABG pCO2 51 mmHg (35-45) H 10/21/18 03:49 ABG pO2 82 mmHg (85-104) L 10/21/18 03:49 ABG HCO3 34 mEq/L (21-27) H 10/21/18 03:49 ABG Total CO2 36 mEq/L (20-26) H 10/21/18 03:49 ABG Base Excess 9 mEq/L (-2 to 3) H 10/21/18 03:49 VBG pCO2 52 mmHg (41-51) H 10/20/18 17:17 VBG pO2 68 mmHg (25-50) H 10/20/18 17:17 VBG HCO3 33 mEq/L (21-27) H 10/20/18 17:17 Potassium 3.3 mEq/L (3.5-5.1) L 10/20/18 12:40 Carbon Dioxide 34 mEq/L (23-29) H 10/21/18 05:58 Glucose 133 mg/dL (70-105) H 10/21/18 05:58 Ur Specific [place] 1.027 (1.010-1.025) H 10/20/18 16:46 - Microbiology Findings Microbiology Findings: Microbiology, Last 48 Hours 10/20/18 12:59 Blood Culture - Preliminary Peripheral Venipuncture Culture is incubating and being continuously monitored for growth. Final report to follow. 10/20/18 12:40 Blood Culture - Preliminary Peripheral Venipuncture Culture is incubating and being continuously monitored for growth. Final report to follow. - Clinical Findings Intake & Output: Intake & Output 10/20/18 10/21/18 10/21/18 23:59 07:59 15:59 Intake Total 270 / 270 Output Total 200 / 200 Balance -200 / 70 270 / 70 Consult Discharge Plan - Plan Referrals: Nasima Pascual SCIENCE INTERPRETER [Primary Care Provider] - <Familia Philip - Last Filed: 10/21/18 15:31> Date of Encounter: 10/21/18 All Systems: The remainder of the systems were reviewed and are negative Results - Laboratory Findings CBC and BMP: 10/21/18 05:58 10/21/18 05:58 ABG ABG pH 7.43 pH Units (7.32-7.45) 10/21/18 03:49 ABG pCO2 51 mmHg (35-45) H 10/21/18 03:49 ABG pO2 82 mmHg (85-104) L 10/21/18 03:49 ABG O2 Saturation 96 % (95-98) 10/21/18 03:49 Abnormal lab findings: Abnormal lab results MCHC 30.8 g/dL (31.6-35.5) L 10/21/18 05:58 ABG pCO2 51 mmHg (35-45) H 10/21/18 03:49 ABG pO2 82 mmHg (85-104) L 10/21/18 03:49 ABG HCO3 34 mEq/L (21-27) H 10/21/18 03:49 ABG Total CO2 36 mEq/L (20-26) H 10/21/18 03:49 ABG Base Excess 9 mEq/L (-2 to 3) H 10/21/18 03:49 VBG pCO2 52 mmHg (41-51) H 10/20/18 17:17 VBG pO2 68 mmHg (25-50) H 10/20/18 17:17 VBG HCO3 33 mEq/L (21-27) H 10/20/18 17:17 Potassium 3.3 mEq/L (3.5-5.1) L 10/20/18 12:40 Carbon Dioxide 34 mEq/L (23-29) H 10/21/18 05:58 Glucose 133 mg/dL (70-105) H 10/21/18 05:58 Ur Specific [place] 1.027 (1.010-1.025) H 10/20/18 16:46 - Microbiology Findings Microbiology Findings: Microbiology, Last 48 Hours 10/20/18 12:59 Blood Culture - Preliminary Peripheral Venipuncture Culture is incubating and being continuously monitored for growth. Final report to follow. 10/20/18 12:40 Blood Culture - Preliminary Peripheral Venipuncture Culture is incubating and being continuously monitored for growth. Final report to follow. - Clinical Findings Intake & Output: Intake & Output 10/20/18 10/21/18 10/21/18 23:59 07:59 15:59 Intake Total 270 / 270 Output Total 200 / 200 Balance -200 / 70 270 / 70 - Attending Attestation I examined this patient and my medical decision-making was reviewed with the Resident Physician. I agree with the documented findings, disposition and treatment plan as described except to the extent set forth below. We independently had [id number] contact with the patient Patient seen and examined at bedside Labs, radiology, chart personally reviewed. Impression/Recs: -Acute respiratory failure- stable on oxygen mask continue to wean for goals saturation greater than 88% -COPD exacerbation - add oral prednisone monitor for delirium. Schedule bronchodilators and agree with antibiotics -PNA - she is at risk for hospital associated pathogens clinically appears to be stable would continue current regimen that would be acceptable first But if any signs of deterioration would have low threshold for broadening out to cover for hospital associated pathogens such as MRSA and Pseudomonas. Strep Legionella urine antigen should be obtained check procalcitonin -Pleural Effusion unclear etiology question will diastolic heart failure although BNP is normal on today's admission cannot fully exclude malignant effusion given history of malignancy and possibly parapneumonic effusion, plan for diagnostic/therapeutic thoracentesis. The daughter who is her healthcare power of workers compensation attorney has requested to be in the room during the procedure to keep her mother calm given her advanced delirium and this is a reasonable approach. We will plan on thoracentesis tomorrow morning Thank you for the consultation
[2018-10-21] MEDS: predniSONE 10 MG TABLET PO SCH (14:18)
[2018-10-21] MEDS: Rivastigmine Tartrate (oral) 1.5 MG CAPSULE PO SCH (20:59)
[2018-10-21] MEDS: traZODone 50 MG TABLET PO SCH (20:59)
[2018-10-22] MEDS: *HR* Heparin 5,000 UNIT/ML VIAL SQ SCH ×3 (06:17→19:59)
[2018-10-22 06:29] LABS: Hematocrit 44.7 % (35.3-44.9); Hemoglobin 13.7 g/dL (11.5-15.4); Mean Corpuscular HGB Conc 30.6 g/dL (31.6-35.5); Mean Corpuscular Hemoglobin 29.1 pg (28.0-33.3); Mean Corpuscular Volume 95.1 fL (83.0-100.0); Mean Platelet Volume 9.2 fL (9.4-12.4); Platelet Count 172 K/mcL (140-400); Red Cell Distribution Width 13.2 % (11.5-14.5)
[2018-10-22 06:45] LABS: BUN/Creatinine Ratio 20 (6-26); Blood Urea Nitrogen 12 mg/dL (8-23); Calcium 9.1 mg/dL (8.6-10.3); Carbon Dioxide 37 mEq/L (23-29); Chloride 99 mEq/L (98-107); Glucose 127 mg/dL (70-105); Osmolality,Calculated 297 (280-300); Sodium 143 mEq/L (136-145); eGFR For African Americans > 60 (> 60); eGFR For Non-African Americans > 60 (> 60)
[2018-10-22] MEDS: Azithromycin 250 MG TABLET PO SCH (08:22)
[2018-10-22] MEDS: cefTRIAXone 2,000 MG in Water for inj. (sterile) 20 ML IVP SCH (08:22)
[2018-10-22] MEDS: predniSONE 10 MG TABLET PO SCH (08:23)
[2018-10-22] MEDS: amLODIPine 5 MG TABLET PO SCH (08:23)
[2018-10-22] MEDS: Rivastigmine Tartrate (oral) 1.5 MG CAPSULE PO SCH ×2 (08:23→19:58)
[2018-10-22] MEDS ORDERED: Ipratropium/Albuterol Neb 3 ML IH SCH (09:00)
[2018-10-22 09:36] LABS: INR 0.9; Prothrombin Time 10.7 Seconds (9.4-12.1)
[2018-10-22 09:38] LABS: Activated Partial Thrombo Time 37.1 Seconds (26.0-36.0)
[2018-10-22] MEDS: Ipratropium/Albuterol Neb 3 ML IH SCH ×3 (09:47→22:18)
--- NOTE | 2018-10-22 09:55 | Pulmonology Progress Note ---
<Chandu Husain M - Last Filed: 10/22/18 09:27> Date of Encounter: 10/22/18 Time of Encounter: 09:00 Assessment and Plan (1) Acute on chronic respiratory failure with hypoxia and hypercapnia Current Visit: Yes Status: Acute Patient presented with acute hypoxic respiratory failure. Unable to maintain SPO2 greater than 80% prior to admission. In the ED was started on 6 L nasal cannula, SPO2 94%. Currently requiring 12 L/m O2 via oxygen mask to maintain SPO2 greater than 88%. 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 CT chest did reveal evidence of centrilobular as well as paraseptal emphysematous changes consistent with diagnosis of COPD. Additionally, there was a moderate left sided pleural effusion revealed with possible left lower lobe consolidation noted. ABG revealed respiratory acidosis with metabolic alkalosis and normal pH. Plan: -Patient more subjectively short of breath with increased cough and mucous production today compared to yesterday -Changed Duonebs to Scheduled, was PRN -Continue supplemental O2 to maintain SpO2 greater than 88% -Continue Azithromycin/Ceftriaxone and Prednisone 30mg PO -Urinary Antigens negative for strep pneumo/legionella -Procalcitonin negative -Diagnostic thoracentesis will be performed today -Pleural studies for possible exudate be performed, patient does have risk for exudate including possible pneumonia, history of breast cancer; transudative less likely given no history of CHF (2) COPD exacerbation Current Visit: Yes Status: Acute Continue Prednisone 30mg Scheduled duonebs ordered supplemental O2 azithromycin on board rest of plan as above (3) Pleural effusion Current Visit: Yes Status: Acute Diagnostic Thoracentesis to be performed today Will send for pleural studies to evaluate for possible exudate (4) Pneumonia Current Visit: Yes Status: Acute Plan as above and per primary team Continue ABX, urinary antigens and procalcitonin negative Qualifiers: Pneumonia type: due to unspecified organism Laterality: left Lung location: lower lobe of lung Qualified Code(s): J18.1 - Lobar pneumonia, unspecified organism Subjective Principal diagnosis: Acute Respiratory Failure Interval history: Patient was seen and examined at bedside with daughter in the room this morning. Daughter reports patient was significantly short of breath overnight and bedside monitor reported heart rate greater than 100 on several occasions. However review of telemetry reveals heart rate has been normal for out the night and this was likely an equipment error. Heart rate on exam was roughly 80-90. However, Patient was considerably wheezy today and reported increasing cough, productive with copious mucus. Patient was given 1 breathing treatment this morning's result of this and reported significant improvement. SPO2 was 98% on 8 L. This is an improvement from yesterday when patient required 15 L oxygen mask to maintain SPO2 greater than 88%. Bedside thoracentesis is to be performed today pending PT/INR, platelets were normal. Objective PUL Vital signs: Last Vital Signs Temp 98.2 F 10/22/18 06:41 Pulse 99 10/22/18 06:41 Resp 18 10/22/18 06:41 BP 150/73 10/22/18 06:41 Pulse Ox 95 10/22/18 06:41 Gen.: Patient appears uncomfortable prior to breathing treatment this morning. Vitals noted in stable Head: Atraumatic, normocephalic Eyes: Anicteric sclerae, EOMI ENT: Mucous membranes moist, oropharynx clear Neck: Trachea midline, no thyromegaly or lymphadenopathy CV: Regular rate and rhythm no murmurs, gallops, rubs Resp: Diffuse wheezes with occasional rhonchi appreciated best in the right base, diminished breath sounds left lower lobe Abdomen: Soft, nontender Extremities: No edema, cyanosis, clubbing Results - Laboratory Findings CBC and BMP: 10/22/18 06:06 10/22/18 06:06 ABG ABG pH 7.43 pH Units (7.32-7.45) 10/21/18 03:49 ABG pCO2 51 mmHg (35-45) H 10/21/18 03:49 ABG pO2 82 mmHg (85-104) L 10/21/18 03:49 ABG O2 Saturation 96 % (95-98) 10/21/18 03:49 Abnormal lab findings: Abnormal lab results MCHC 30.6 g/dL (31.6-35.5) L 10/22/18 06:06 MPV 9.2 fL (9.4-12.4) L 10/22/18 06:06 ABG pCO2 51 mmHg (35-45) H 10/21/18 03:49 ABG pO2 82 mmHg (85-104) L 10/21/18 03:49 ABG HCO3 34 mEq/L (21-27) H 10/21/18 03:49 ABG Total CO2 36 mEq/L (20-26) H 10/21/18 03:49 ABG Base Excess 9 mEq/L (-2 to 3) H 10/21/18 03:49 VBG pCO2 52 mmHg (41-51) H 10/20/18 17:17 VBG pO2 68 mmHg (25-50) H 10/20/18 17:17 VBG HCO3 33 mEq/L (21-27) H 10/20/18 17:17 Potassium 3.3 mEq/L (3.5-5.1) L 10/20/18 12:40 Carbon Dioxide 37 mEq/L (23-29) H 10/22/18 06:06 Glucose 127 mg/dL (70-105) H 10/22/18 06:06 Ur Specific [place] 1.027 (1.010-1.025) H 10/20/18 16:46 - Microbiology Findings Microbiology Findings: Microbiology, Last 48 Hours 10/21/18 14:30 Legionella Antigen - Final Urine,Clean Catch Streptococcus pneumoniae Antigen (M - Final 10/20/18 12:59 Blood Culture - Preliminary Peripheral Venipuncture Culture is incubating and being continuously monitored for growth. Final report to follow. 10/20/18 12:40 Blood Culture - Preliminary Peripheral Venipuncture Culture is incubating and being continuously monitored for growth. Final report to follow. - Clinical Findings Intake & Output: Intake & Output 10/21/18 10/22/18 10/22/18 23:59 07:59 15:59 Output Total 75 / 425 Balance -75 / -155 Consult Discharge Plan - Plan Referrals: Nasima Pascual CNP [Primary Care Provider] - <Familia Philip - Last Filed: 10/22/18 11:58> Date of Encounter: 10/22/18 Objective PUL Vital signs: Last Vital Signs Temp 97.8 F 10/22/18 11:41 Pulse 84 10/22/18 11:41 Resp 18 10/22/18 11:41 BP 123/64 10/22/18 11:41 Pulse Ox 94 10/22/18 11:41 Results - Laboratory Findings CBC and BMP: 10/22/18 06:06 10/22/18 06:06 ABG ABG pH 7.43 pH Units (7.32-7.45) 10/21/18 03:49 ABG pCO2 51 mmHg (35-45) H 10/21/18 03:49 ABG pO2 82 mmHg (85-104) L 10/21/18 03:49 ABG O2 Saturation 96 % (95-98) 10/21/18 03:49 PT/INR, D-dimer PT 10.7 Seconds (9.4-12.1) 10/22/18 09:03 Abnormal lab findings: Abnormal lab results MCHC 30.6 g/dL (31.6-35.5) L 10/22/18 06:06 MPV 9.2 fL (9.4-12.4) L 10/22/18 06:06 APTT 37.1 Seconds (26.0-36.0) H 10/22/18 09:03 ABG pCO2 51 mmHg (35-45) H 10/21/18 03:49 ABG pO2 82 mmHg (85-104) L 10/21/18 03:49 ABG HCO3 34 mEq/L (21-27) H 10/21/18 03:49 ABG Total CO2 36 mEq/L (20-26) H 10/21/18 03:49 ABG Base Excess 9 mEq/L (-2 to 3) H 10/21/18 03:49 VBG pCO2 52 mmHg (41-51) H 10/20/18 17:17 VBG pO2 68 mmHg (25-50) H 10/20/18 17:17 VBG HCO3 33 mEq/L (21-27) H 10/20/18 17:17 Potassium 3.3 mEq/L (3.5-5.1) L 10/20/18 12:40 Carbon Dioxide 37 mEq/L (23-29) H 10/22/18 06:06 Glucose 127 mg/dL (70-105) H 10/22/18 06:06 Ur Specific [place] 1.027 (1.010-1.025) H 10/20/18 16:46 - Microbiology Findings Microbiology Findings: Microbiology, Last 48 Hours 10/21/18 14:30 Legionella Antigen - Final Urine,Clean Catch Streptococcus pneumoniae Antigen (M - Final 10/20/18 12:59 Blood Culture - Preliminary Peripheral Venipuncture Culture is incubating and being continuously monitored for growth. Final report to follow. 10/20/18 12:40 Blood Culture - Preliminary Peripheral Venipuncture Culture is incubating and being continuously monitored for growth. Final report to follow. - Clinical Findings Intake & Output: Intake & Output 10/21/18 10/22/18 10/22/18 23:59 07:59 15:59 Output Total 75 / 425 Balance -75 / -155 - Attending Attestation I examined this patient and my medical decision-making was reviewed with the Resident Physician. I agree with the documented findings, disposition and tr eatment plan as described except to the extent set forth below. We independently had [id number] contact with the patient Patient seen and examined at bedside Labs, radiology, chart personally reviewed. Impression/Recs: Thoracentesis was performed today at bedside without complication. We will follow up on pleural fluid studies. From antimicrobial standpoint she appears to be clinically stable and likely de-escalate to by mouth regimen would recommend completing 5 days with macrolide 5 days of with additional agent such as third-generation cephalosporin or Augmentin. 5 days of prednisone burst. And importantly she will need to schedule bronchodilators she has a good response to these.
--- NOTE | 2018-10-22 11:03 | Procedure Note ---
Date of procedure: 10/22/18 Pre-op diagnosis: Pleural Effusion Post-op diagnosis: same Procedure: A time-out was completed verifying correct patient, procedure, site, positioning, and special equipment if applicable. The procedure was guided by ultrasound and a large pocket of fluid was demonstrated by ultrasound subsequently the patients left side was prepped and draped in a sterile manner after the appropriate infiltration level was confirmed by ultrasound. 1% lidocaine was used anesthetize the surrounding skin. A finder needle was then used to locate fluid and clear yellow fluid was obtained. A 10-blade scalpel used to make the incision. The thoracentesis catheter was then threaded without difficulty. The patient had 1000mL of macarena fluid removed. A post-procedure chest x-ray was ordered and the fluid will be sent for several studies. No immediate complications Anesthesia: local Surgeon: Familia Philip Was there an medical office receptionist assistant present: No Estimated blood loss (cc): 1 Specimen: Sent (pleural fluid) Pathology: other Condition: stable Disposition: no change
[2018-10-22 12:28] LABS: Albumin 3.5 g/dL (3.5-5.7); Albumin/Globulin Ratio 1.2 (1.1-2.2); Bilirubin,Total 0.9 mg/dL (0.3-1.0); Cholesterol 224 mg/dL (< 200); Lactate Dehydrogenase 163 Units/L (140-271); Total Protein 6.5 g/dL (6.4-8.9)
[2018-10-22 12:56] LABS: RBC,Pleural Fluid 0.037 M/mcL
[2018-10-22 13:20] LABS: Total Protein,Pleural Fluid 3.6 g/dL
--- NOTE | 2018-10-22 14:15 | Internal Med Progress Note ---
Hospitalist Progress Note - Encounter Date of Encounter: 10/22/18 Time of Encounter: 09:00 - Subjective Interval History: No acute events overnight. For thoracentesis this am - Exam Vitals: Temp Pulse Resp BP Pulse Ox 97.8 F 84 18 123/64 94 10/22/18 11:41 10/22/18 11:41 10/22/18 11:41 10/22/18 11:41 10/22/18 11:41 Exam: GENERAL: Mild respiratory distress on high flow O2 via oxy mask. Alert and Oriented 2 (baseline) HEENT: EOMI, PERRLA MOUTH: Moist oral mucosa NECK:No JVD, No lymph nodes. CHEST AND LUNGS: Bronchial breath sounds in left middle and lower zones. No wheezing HEART: S1 and S2 normal, no murmurs ABDOMEN: Soft, nontender, no organomegaly SKIN: Normal color, no rashes, no lesions EXTREMITIES: No deformity, no edema, no tenderness, no joint swelling or clubbing NEUROLOGICAL: Oriented to place and person but not to time. Normal motor and sensory exam. PSYCHE: Pleasant - Assessment and Plan (1) Acute on chronic respiratory failure with hypoxia and hypercapnia Current Visit: Yes Status: Acute Assessment and Plan: Pt comes in with shortness of breath and acute hypoxic hypercapnic respiratory failure secondary to COPD exacerbation and new pleural effusion possbly 2/2 to pneumonia Continue duonebs, ceftriaxone and azithromycin and steroids For thoracentesis today (2) Pneumonia Current Visit: Yes Status: Acute Assessment and Plan: Management as above. CT findings concerning for left lower lobe pneumonia. On ceftriaxone and azithromycin. (3) Pleural effusion Current Visit: Yes Status: Acute Assessment and Plan: Patient has a history of recurrent pneumonias and right breast cancer status post radical mastectomy. CT scan shows moderate to large sized pleural effusion on the left. Pulmonology consulted and plan for thoracentesis today (4) Aortic stenosis Current Visit: Yes Status: Acute Assessment and Plan: Patient has a loud systolic murmur in the second right intercostal space radiating to carotids. Echo findings: EF of 50%, moderate aortic stenosis, indeterminate left diastolic function. Normal right ventricular structure and function, mild concentric left ventricular hypertrophy, mild aortic regurg with no evidence of pulmonary hypertension We will monitor (5) COPD exacerbation Current Visit: Yes Status: Acute Assessment and Plan: Also patient denies a history of COPD. She has a significant smoking history and CT findings of moderate to severe emphysema. Cotninue duonebs, antibiotics and steroids (6) Hypertension Current Visit: Yes Status: Chronic Assessment and Plan: Resume home meds Monitor. (7) Hyperlipidemia Current Visit: Yes Status: Chronic Assessment and Plan: Resume statins. (8) Dementia Current Visit: Yes Status: Chronic Assessment and Plan: Patient currently not on any meds. According to daughter they tried using donepezil patches which patient had severe allergic reactions to. Continue Memantine. (9) Hypokalemia Current Visit: Yes Status: Resolved Assessment and Plan: Resolved K 4.1 Monitor (10) DVT prophylaxis Current Visit: Yes Status: Acute Assessment and Plan: Subcutaneous heparin - Time Spent with Patient Total time spent is greater than 50% in coordination of care (as documented) at patient's floor/unit and/or counseling patient: Internal Medicine: Result - Labs CBC & Chem 7: 10/22/18 06:06 10/22/18 06:06 Labs: Short CBC 10/22/18 Range/Units 06:06 WBC 6.0 (4.3-11.1) K/mcL Hgb 13.7 (11.5-15.4) g/dL Hct 44.7 (35.3-44.9) % Plt Count 172 (140-400) K/mcL BMP 10/22/18 06:06 Sodium 143 Potassium 4.0 Chloride 99 Carbon Dioxide 37 H BUN 12 Creatinine 0.61 Glucose 127 H Calcium 9.1 Liver Function 10/22/18 Range/Units 06:06 Total Bilirubin 0.9 (0.3-1.0) mg/dL Albumin 3.5 (3.5-5.7) g/dL - ABG Interpretation ABG results: ABG ABG pH 7.43 pH Units (7.32-7.45) 10/21/18 03:49 ABG pCO2 51 mmHg (35-45) H 10/21/18 03:49 ABG pO2 82 mmHg (85-104) L 10/21/18 03:49 ABG O2 Saturation 96 % (95-98) 10/21/18 03:49 PT/INR, D-dimer PT 10.7 Seconds (9.4-12.1) 10/22/18 09:03 - Impressions Impressions Chest X-Ray 10/22/18 10:59 IMPRESSION: No pneumothorax. Slightly decreased size of a moderate left pleural effusion, with basilar atelectasis and/or consolidation. D/ / Isaac Chapman MD / Isaac Chapman MD Interpreting Provider: Isaac Chapman MD Consult Discharge Plan - Plan Referrals: Nasima Pascual CNP [Primary Care Provider] - (2) Pneumonia Qualifiers: Pneumonia type: due to unspecified organism Laterality: left Lung location: lower lobe of lung Qualified Code(s): J18.1 - Lobar pneumonia, unspecified organism (4) Aortic stenosis Qualifiers: Cardiac valve disease etiology: etiology unspecified Qualified Code(s): I35.0 - Nonrheumatic aortic (valve) stenosis (6) Hypertension Qualifiers: Hypertension type: essential hypertension Qualified Code(s): I10 - Essential (primary) hypertension (7) Hyperlipidemia Qualifiers: Hyperlipidemia type: mixed hyperlipidemia Qualified Code(s): E78.2 - Mixed hyperlipidemia (8) Dementia Qualifiers: Dementia type: unspecified type Dementia behavioral disturbance: without beha vioral disturbance Qualified Code(s): F03.90 - Unspecified dementia without behavioral disturbance
[2018-10-22 14:50] LABS: Basophils,Pleural Fluid 0 %
[2018-10-22 14:51] LABS: Appearance of Pleural Fl Bloody (Clear)
[2018-10-22] MEDS: Budesonide/Formoterol 160/4.5 1 PUFF INH IH SCH ×2 (15:06→22:18)
[2018-10-22] MEDS: traZODone 50 MG TABLET PO SCH (19:59)
[2018-10-23] MEDS: Ipratropium/Albuterol Neb 3 ML IH SCH ×4 (03:40→22:47)
[2018-10-23] MEDS: *HR* Heparin 5,000 UNIT/ML VIAL SQ SCH ×3 (05:17→20:57)
[2018-10-23 05:58] LABS: Basophils % 0.1 %; Eosinophils % 0.1 %; Hematocrit 42.4 % (35.3-44.9); Hemoglobin 12.9 g/dL (11.5-15.4); Immature Granulocytes % 0.2 % (0-4); Lymphocytes # 0.8 K/mcL (0.6-4.6); Lymphocytes % 9.2 %; Mean Corpuscular HGB Conc 30.4 g/dL (31.6-35.5); Mean Corpuscular Hemoglobin 29.2 pg (28.0-33.3); Mean Corpuscular Volume 95.9 fL (83.0-100.0); Mean Platelet Volume 9.8 fL (9.4-12.4); Monocytes # 0.7 K/mcL (0.0-1.3); Monocytes % 8.3 %; Neutrophils # 6.8 K/mcL (1.6-8.9); Platelet Count 172 K/mcL (140-400); Red Blood Count 4.42 M/mcL (3.82-4.97); Red Cell Distribution Width 13.1 % (11.5-14.5); Segmented Neutrophils % 82.1 %; White Blood Count 8.3 K/mcL (4.3-11.1)
[2018-10-23 06:25] LABS: BUN/Creatinine Ratio 23 (6-26); Blood Urea Nitrogen 19 mg/dL (8-23); Calcium 8.9 mg/dL (8.6-10.3); Carbon Dioxide 36 mEq/L (23-29); Chloride 100 mEq/L (98-107); Glucose 150 mg/dL (70-105); Magnesium 2.1 mg/dL (1.6-2.6); Osmolality,Calculated 301 (280-300); Phosphorous 4.1 mg/dL (2.7-4.5); Potassium 3.9 mEq/L (3.5-5.1); Sodium 143 mEq/L (136-145); eGFR For African Americans > 60 (> 60); eGFR For Non-African Americans > 60 (> 60)
--- NOTE | 2018-10-23 07:40 | Internal Med Progress Note ---
Hospitalist Progress Note - Encounter Date of Encounter: 10/23/18 Time of Encounter: 08:00 - Subjective Interval History: s/p thoracentesis - Exam Vitals: Temp Pulse Resp BP Pulse Ox 97.9 F 93 17 115/58 98 10/23/18 03:40 10/23/18 03:40 10/23/18 03:41 10/23/18 03:40 10/23/18 03:41 Exam: GENERAL: Mild respiratory distress on high flow O2 via oxy mask. Alert and O riented 2 (baseline) HEENT: EOMI, PERRLA MOUTH: Moist oral mucosa NECK:No JVD, No lymph nodes. CHEST AND LUNGS: Bronchial breath sounds in left middle and lower zones. No wheezing HEART: S1 and S2 normal, no murmurs ABDOMEN: Soft, nontender, no organomegaly SKIN: Normal color, no rashes, no lesions EXTREMITIES: No deformity, no edema, no tenderness, no joint swelling or clubbing NEUROLOGICAL: Oriented to place and person but not to time. Normal motor and sensory exam. PSYCHE: Pleasant - Assessment and Plan (1) Acute on chronic respiratory failure with hypoxia and hypercapnia Current Visit: Yes Status: Acute Assessment and Plan: Pt comes in with shortness of breath and acute hypoxic hypercapnic respiratory failure secondary to COPD exacerbation and new pleural effusion possbly 2/2 to pneumonia Continue duonebs, ceftriaxone and azithromycin and steroids s/p thoracentesis with removal of 1L of exudative fluid. continue antibiotics Pulm plan for repeat thoracentesis (2) Pneumonia Current Visit: Yes Status: Acute Assessment and Plan: Management as above.CT findings show left lower lobe pneumonia and pleural effusion. On ceftriaxone and azithromycin. (3) Pleural effusion Current Visit: Yes Status: Acute Assessment and Plan: Patient has a history of recurrent pneumonias and right breast cancer status post radical mastectomy. CT scan shows moderate to large sized pleural effusion on the left. Pulmonology consulted and performed thoracentesis (4) Aortic stenosis Current Visit: Yes Status: Acute Assessment and Plan: Patient has a loud systolic murmur in the second right intercostal space radiating to carotids. Echo findings: EF of 50%, moderate aortic stenosis, indeterminate left diastolic function. Normal right ventricular structure and function, mild concentric left ventricular hypertrophy, mild aortic regurg with no evidence of pulmonary hypertension We will monitor (5) COPD exacerbation Current Visit: Yes Status: Acute Assessment and Plan: Also patient denies a history of COPD. She has a significant smoking history and CT findings of moderate to severe emphysema. Cotninue duonebs, antibiotics and steroids (6) Hypertension Current Visit: Yes Status: Chronic Assessment and Plan: Resume home meds Monitor. (7) Hyperlipidemia Current Visit: Yes Status: Chronic Assessment and Plan: Resume statins. (8) Dementia Current Visit: Yes Status: Chronic Assessment and Plan: Patient currently not on any meds. According to daughter they tried using donepezil patches which patient had destin re allergic reactions to. Continue Memantine. (9) Hypokalemia Current Visit: Yes Status: Acute Assessment and Plan: Resolved K 4.1 Monitor (10) DVT prophylaxis Current Visit: Yes Status: Acute Assessment and Plan: Subcutaneous heparin - Time Spent with Patient Total time spent is greater than 50% in coordination of care (as documented) at patient's floor/unit and/or counseling patient: Internal Medicine: Result - Labs CBC & Chem 7: 10/23/18 05:23 10/23/18 05:23 Labs: Short CBC 10/23/18 Range/Units 05:23 WBC 8.3 (4.3-11.1) K/mcL Hgb 12.9 (11.5-15.4) g/dL Hct 42.4 (35.3-44.9) % Plt Count 172 (140-400) K/mcL Neutrophils # 6.8 (1.6-8.9) K/mcL BMP 10/22/18 10/23/18 06:06 05:23 Sodium 143 143 Potassium 4.0 3.9 Chloride 99 100 Carbon Dioxide 37 H 36 H BUN 12 19 Creatinine 0.61 0.82 Glucose 127 H 150 H Calcium 9.1 8.9 Liver Function 10/22/18 Range/Units 06:06 Total Bilirubin 0.9 (0.3-1.0) mg/dL Albumin 3.5 (3.5-5.7) g/dL - ABG Interpretation ABG results: ABG ABG pH 7.43 pH Units (7.32-7.45) 10/21/18 03:49 ABG pCO2 51 mmHg (35-45) H 10/21/18 03:49 ABG pO2 82 mmHg (85-104) L 10/21/18 03:49 ABG O2 Saturation 96 % (95-98) 10/21/18 03:49 PT/INR, D-dimer PT 10.7 Seconds (9.4-12.1) 10/22/18 09:03 - Impressions Impressions Chest X-Ray 10/22/18 10:59 IMPRESSION: No pneumothorax. Slightly decreased size of a moderate left pleural effusion, with basilar atelectasis and/or consolidation. D/ / Isaac Chapman MD / Isaac Chapman MD Interpreting Provider: Isaac Chapman MD Consult Discharge Plan - Plan Referrals: Nasima Pascual CNP [Primary Care Provider] - (2) Pneumonia Qualifiers: Pneumonia type: due to unspecified organism Laterality: left Lung location: lower lobe of lung Qualified Code(s): J18.1 - Lobar pneumonia, unspecified organism (4) Aortic stenosis Qualifiers: Cardiac valve disease etiology: etiology unspecified Qualified Code(s): I35.0 - Nonrheumatic aortic (valve) stenosis (6) Hypertension Qualifiers: Hypertension type: other secondary hypertension Qualified Code(s): I15.8 - Other secondary hypertension (7) Hyperlipidemia Qualifiers: Hyperlipidemia type: mixed hyperlipidemia Qualified Code(s): E78.2 - Mixed hyperlipidemia (8) Dementia Qualifiers: Dementia type: unspecified type Dementia behavioral disturbance: without behavioral disturbance Qualified Code(s): F03.90 - Unspecified dementia without behavioral disturbance
--- NOTE | 2018-10-23 08:33 | Pulmonology Progress Note ---
Date of Encounter: 10/23/18 Time of Encounter: 09:00 Assessment and Plan (1) Acute on chronic respiratory failure with hypoxia and hypercapnia Current Visit: Yes Status: Acute Patient presented with acute hypoxic respiratory failure. Unable to maintain SPO2 greater than 80% prior to admission. In the ED was started on 6 L nasal cannula, SPO2 94%. Today, patient requiring 8 L/m O2 via oxygen mask to maintain SPO2 greater than 88%. She does have a remote history of significant tobacco abuse but denies any knowledge of COPD and does not follow with a director of development and marketing. CT chest did reveal evidence of centrilobular as well as paraseptal emphysematous changes consistent with diagnosis of COPD. Additionally, there was a moderate left sided pleural effusion revealed with possible left lower lobe consolidation noted. ABG revealed respiratory acidosis with metabolic alkalosis and normal pH. Yesterday, patient had thoracentesis performed without complication, patient tolerated procedure well. Repeat chest x-ray postthoracentesis negative for pneumothorax. Patient is currently day 3 azithromycin and Rocephin. Pleural fluid studies revealed an exudative effusion, predominantly neutrophilic, cytology still pending at this time. Consistent with possible parapneumonic effusion however neoplastic process cannot be excluded at this time. Plan: -We will plan for additional therapeutic thoracentesis as patient still having significant respiratory symptoms secondary to parapneumonic effusion -We will discuss/obtain consent with the patient's daughter and perform procedure when she is able to be present -Continue scheduled DuoNeb nebs, patient exhibits good response to these and will benefit from these on discharge -Continue supplemental O2 to maintain SpO2 greater than 88% -Continue Azithromycin/Ceftriaxone, currently day 3, patient will likely need 5- 7 days -May switch antibiotics to oral macrolide and oral Augmentin/cefdinir -Urinary Antigens negative for strep pneumo/legionella -Procalcitonin negative (2) COPD exacerbation Current Visit: Yes Status: Acute Continue Prednisone 30mg Scheduled duonebs ordered supplemental O2 azithromycin on board rest of plan as above (3) Pleural effusion Current Visit: Yes Status: Acute Plan as above State of effusion, predominantly neutrophilic with lymphocytic involvement Consistent with parapneumonic effusion, neoplastic process not excluded pending cytology We will repeat thoracentesis for symptomatic relief as patient continues to suffer from acute hypoxic respiratory failure (4) Pneumonia Current Visit: Yes Status: Acute Plan as above and per primary team Continue ABX, urinary antigens and procalcitonin negative Qualifiers: Pneumonia type: due to unspecified organism Laterality: left Lung locat ion: lower lobe of lung Qualified Code(s): J18.1 - Lobar pneumonia, unspecified organism Subjective Principal diagnosis: Acute Respiratory Failure Interval history: Seen and examined at bedside this morning. Patient subjectively reports improvement in breathing, decreased cough, decreased wheezing. However patient continues to require 8 L oxygen mask to maintain SPO2 greater than 92%. Patient denies other complaints at this time. Objective PUL Vital signs: Last Vital Signs Temp 97.3 F L 10/23/18 08:07 Pulse 96 10/23/18 08:07 Resp 18 10/23/18 08:07 BP 126/61 10/23/18 08:07 Pulse Ox 95 10/23/18 08:07 Gen.: Vitals noted. Patient comfortable. Nonlabored breathing Head: Atraumatic, normocephalic Eyes: Anicteric sclerae, EOMI ENT: Mucous membranes moist, oropharynx clear Neck: Trachea midline, no thyromegaly or lymphadenopathy CV: Regular rate and rhythm no murmurs, gallops, rubs Resp: Occasional rhonchi appreciated best in the right base, diminished breath sounds left lower lobe, no wheeze Abdomen: Soft, nontender Extremities: No edema, cyanosis, clubbing Results - Laboratory Findings CBC and BMP: 10/23/18 05:23 10/23/18 05:23 ABG ABG pH 7.43 pH Units (7.32-7.45) 10/21/18 03:49 ABG pCO2 51 mmHg (35-45) H 10/21/18 03:49 ABG pO2 82 mmHg (85-104) L 10/21/18 03:49 ABG O2 Saturation 96 % (95-98) 10/21/18 03:49 PT/INR, D-dimer PT 10.7 Seconds (9.4-12.1) 10/22/18 09:03 Abnormal lab findings: Abnormal lab results MCHC 30.4 g/dL (31.6-35.5) L 10/23/18 05:23 MPV 9.2 fL (9.4-12.4) L 10/22/18 06:06 APTT 37.1 Seconds (26.0-36.0) H 10/22/18 09:03 ABG pCO2 51 mmHg (35-45) H 10/21/18 03:49 ABG pO2 82 mmHg (85-104) L 10/21/18 03:49 ABG HCO3 34 mEq/L (21-27) H 10/21/18 03:49 ABG Total CO2 36 mEq/L (20-26) H 10/21/18 03:49 ABG Base Excess 9 mEq/L (-2 to 3) H 10/21/18 03:49 VBG pCO2 52 mmHg (41-51) H 10/20/18 17:17 VBG pO2 68 mmHg (25-50) H 10/20/18 17:17 VBG HCO3 33 mEq/L (21-27) H 10/20/18 17:17 Potassium 3.3 mEq/L (3.5-5.1) L 10/20/18 12:40 Carbon Dioxide 36 mEq/L (23-29) H 10/23/18 05:23 Glucose 150 mg/dL (70-105) H 10/23/18 05:23 Calculated Osmolality 301 (280-300) H 10/23/18 05:23 Cholesterol 224 mg/dL (< 200) H 10/22/18 06:06 Ur Specific [place] 1.027 (1.010-1.025) H 10/20/18 16:46 Pleural Appearance Bloody (Clear) A 10/22/18 10:59 Pleural RBC 0.037 M/mcL (0.000-0.002) H 10/22/18 10:59 Pleural Tot Nuc Cell 1471 TNC/mcL (0-1000) H 10/22/18 10:59 - Microbiology Findings Microbiology Findings: Microbiology, Last 48 Hours 10/22/18 10:59 Body Fluid Culture - Preliminary Pleural Fluid 10/22/18 10:59 Anaerobic Culture - Preliminary Pleural Fluid Culture is incubating. 10/22/18 10:59 Fungal Culture - Preliminary Pleural Fluid Culture is incubating. 10/21/18 14:30 Legionella Antigen - Final Urine,Clean Catch Streptococcus pneumoniae Antigen (M - Final - Clinical Findings Intake & Output: Intake & Output 10/22/18 10/23/18 10/23/18 23:59 07:59 15:59 Output Total 300 / 300 Balance -300 / -300 Weight 66.1 kg Consult Discharge Plan - Plan Referrals: Nasima Pascual, DIPAK [Primary Care Provider] -
[2018-10-23] MEDS: cefTRIAXone 2,000 MG in Water for inj. (sterile) 20 ML IVP SCH (09:32)
[2018-10-23] MEDS: Azithromycin 250 MG TABLET PO SCH (09:33)
[2018-10-23] MEDS: amLODIPine 5 MG TABLET PO SCH (09:33)
[2018-10-23] MEDS: Rivastigmine Tartrate (oral) 1.5 MG CAPSULE PO SCH ×2 (09:33→20:57)
[2018-10-23] MEDS: predniSONE 10 MG TABLET PO SCH (09:34)
[2018-10-23] MEDS: Budesonide/Formoterol 160/4.5 1 PUFF INH IH SCH ×2 (10:14→22:47)
[2018-10-23] MEDS: traZODone 50 MG TABLET PO SCH (20:57)
[2018-10-24 00:41] LABS: Fluid Source for CEA PLEURAL FLUID
[2018-10-24] MEDS: Ipratropium/Albuterol Neb 3 ML IH SCH ×4 (04:03→22:22)
[2018-10-24] MEDS: *HR* Heparin 5,000 UNIT/ML VIAL SQ SCH ×3 (05:08→20:11)
[2018-10-24 05:11] LABS: Eosinophils % 0.1 %; Hematocrit 39.8 % (35.3-44.9); Hemoglobin 12.4 g/dL (11.5-15.4); Immature Granulocytes % 0.4 % (0-4); Lymphocytes # 0.5 K/mcL (0.6-4.6); Lymphocytes % 5.8 %; Mean Corpuscular HGB Conc 31.2 g/dL (31.6-35.5); Mean Corpuscular Hemoglobin 29.6 pg (28.0-33.3); Mean Platelet Volume 10.6 fL (9.4-12.4); Monocytes # 0.5 K/mcL (0.0-1.3); Monocytes % 6.6 %; Neutrophils # 7.2 K/mcL (1.6-8.9); Nucleated Red Blood Cells 0.2 /100 WBC (0); Platelet Count 176 K/mcL (140-400); Red Blood Count 4.19 M/mcL (3.82-4.97); Red Cell Distribution Width 13.2 % (11.5-14.5); Segmented Neutrophils % 87.1 %; White Blood Count 8.2 K/mcL (4.3-11.1)
[2018-10-24 05:20] LABS: BUN/Creatinine Ratio 25 (6-26); Blood Urea Nitrogen 19 mg/dL (8-23); Carbon Dioxide 37 mEq/L (23-29); Chloride 98 mEq/L (98-107); Glucose 145 mg/dL (70-105); Magnesium 2.1 mg/dL (1.6-2.6); Osmolality,Calculated 293 (280-300); Phosphorous 4.3 mg/dL (2.7-4.5); Potassium 4.3 mEq/L (3.5-5.1); Sodium 139 mEq/L (136-145); eGFR For African Americans > 60 (> 60); eGFR For Non-African Americans > 60 (> 60)
[2018-10-24 05:34] LABS: Fluid Source for Albumin PLEURAL
[2018-10-24] MEDS: predniSONE 10 MG TABLET PO SCH (07:50)
[2018-10-24] MEDS: cefTRIAXone 2,000 MG in Water for inj. (sterile) 20 ML IVP SCH (07:50)
[2018-10-24] MEDS: amLODIPine 5 MG TABLET PO SCH (07:51)
[2018-10-24] MEDS: Azithromycin 250 MG TABLET PO SCH (07:51)
[2018-10-24] MEDS: Rivastigmine Tartrate (oral) 1.5 MG CAPSULE PO SCH ×2 (07:51→20:11)
--- NOTE | 2018-10-24 08:48 | Internal Med Progress Note ---
Hospitalist Progress Note - Encounter Date of Encounter: 10/24/18 Time of Encounter: 08:00 - Subjective Interval History: No acute events overnight - Exam Vitals: Temp Pulse Resp BP Pulse Ox 97.9 F 85 18 152/73 95 10/24/18 07:13 10/24/18 07:13 10/24/18 07:13 10/24/18 07:13 10/24/18 07:13 Exam: GENERAL: Mild respiratory distress on high flow O2 via oxy mask. Alert and Oriented 2 (baseline) HEENT: EOMI, PERRLA MOUTH: Moist oral mucosa NECK:No JVD, No lymph nodes. CHEST AND LUNGS: Bronchial breath sounds in left middle and lower zones. No wheezing HEART: S1 and S2 normal, no murmurs ABDOMEN: Soft, nontender, no organomegaly SKIN: Normal color, no rashes, no lesions EXTREMITIES: No deformity, no edema, no tenderness, no joint swelling or clubbing NEUROLOGICAL: Oriented to place and person but not to time. Normal motor and sensory exam. PSYCHE: Pleasant - Assessment and Plan (1) Acute on chronic respiratory failure with hypoxia and hypercapnia Current Visit: Yes Status: Acute Assessment and Plan: Pt comes in with shortness of breath and acute hypoxic hypercapnic respiratory failure secondary to COPD exacerbation and new pleural effusion possbly 2/2 to pneumonia Continue duonebs, ceftriaxone and azithromycin and steroids s/p thoracentesis with removal of 1L of exudative fluid on 10/23. continue antibiotics to complete 7 day course Pulm performed repeat thoracentesis today with withdrawal of 250cc of fluid. Procedure was complicated by pneumothorax and chest tube to be placed by pulm (2) Pneumothorax Current Visit: Yes Status: Acute Assessment and Plan: See #1. s/p thoracentesis. Chest tube to be placed today (3) Pneumonia Current Visit: Yes Status: Acute Assessment and Plan: Management as above.CT findings show left lower lobe pneumonia and pleural effusion. On ceftriaxone and azithromycin. (4) Pleural effusion Current Visit: Yes Status: Acute Assessment and Plan: Patient has a history of recurrent pneumonias and right breast cancer status post radical mastectomy. CT scan shows moderate to large sized pleural effusion on the left. Pulmonology consulted and performed thoracentesis x 2 Continue antibiotics (5) Aortic stenosis Current Visit: Yes Status: Acute Assessment and Plan: Patient has a loud systolic murmur in the second right intercostal space radiating to carotids. Echo findings: EF of 50%, moderate aortic stenosis, indeterminate left diastolic function. Normal right ventricular structure and function, mild concentric left ventricular hypertrophy, mild aortic regurg with no evidence of pulmonary hypertension We will monitor (6) COPD exacerbation Current Visit: Yes Status: Acute Assessment and Plan: Also patient denies a history of COPD. She has a significant smoking history and CT findings of moderate to severe emphysema. Cotninue duonebs, antibiotics and steroids (7) Hypertension Current Visit: Yes Status: Chronic Assessment and Plan: Resume home meds Monitor. (8) Hyperlipidemia Current Visit: Yes Status: Chronic Assessment and Plan: Resume statins. (9) Dementia Current Visit: Yes Status: Chronic Assessment and Plan: Patient currently not on any meds. According to daughter they tried using donepezil patches which patient had severe allergic reactions to. Continue Memantine. (10) Hypokalemia Current Visit: Yes Status: Acute Assessment and Plan: Resolved K 4.1 Monitor (11) DVT prophylaxis Current Visit: Yes Status: Acute Assessment and Plan: Subcutaneous heparin - Time Spent with Patient Total time spent is greater than 50% in coordination of care (as documented) at patient's floor/unit and/or counseling patient: Internal Medicine: Result - Labs CBC & Chem 7: 10/24/18 04:16 10/24/18 04:16 Labs: Short CBC 10/24/18 Range/Units 04:16 WBC 8.2 (4.3-11.1) K/mcL Hgb 12.4 (11.5-15.4) g/dL Hct 39.8 (35.3-44.9) % Plt Count 176 (140-400) K/mcL Neutrophils # 7.2 (1.6-8.9) K/mcL BMP 10/24/18 04:16 Sodium 139 Potassium 4.3 Chloride 98 Carbon Dioxide 37 H BUN 19 Creatinine 0.75 Glucose 145 H Calcium 9.0 - ABG Interpretation ABG results: ABG ABG pH 7.43 pH Units (7.32-7.45) 10/21/18 03:49 ABG pCO2 51 mmHg (35-45) H 10/21/18 03:49 ABG pO2 82 mmHg (85-104) L 10/21/18 03:49 ABG O2 Saturation 96 % (95-98) 10/21/18 03:49 PT/INR, D-dimer PT 10.7 Seconds (9.4-12.1) 10/22/18 09:03 Consult Discharge Plan - Plan Referrals: Nasima Pascual CNP [Primary Care Provider] - (3) Pneumonia Qualifiers: Pneumonia type: due to unspecified organism Laterality: left Lung location: lower lobe of lung Qualified Code(s): J18.1 - Lobar pneumonia, unspecified organism (5) Aortic stenosis Qualifiers: Cardiac valve disease etiology: etiology unspecified Qualified Code(s): I35.0 - Nonrheumatic aortic (valve) stenosis (7) Hypertension Qualifiers: Hypertension type: other secondary hypertension Qualified Code(s): I15.8 - Other secondary hypertension (8) Hyperlipidemia Qualifiers: Hyperlipidemia type: mixed hyperlipidemia Qualified Code(s): E78.2 - Mixed hyperlipidemia (9) Dementia Qualifiers: Dementia type: unspecified type Dementia behavioral disturbance: without behavioral disturbance Qualified Code(s): F03.90 - Unspecified dementia without behavioral disturbance
[2018-10-24] MEDS ORDERED: *HR* OxyCODONE/APAP 5/325 TABLET PO ONE (10:33)
[2018-10-24] MEDS: Budesonide/Formoterol 160/4.5 1 PUFF INH IH SCH ×2 (10:59→22:22)
--- NOTE | 2018-10-24 11:04 | Pulmonology Progress Note ---
<CedrickFamilia W - Last Filed: 10/24/18 11:58> Date of Encounter: 10/24/18 Objective PUL Vital signs: Last Vital Signs Temp 97.9 F 10/24/18 07:13 Pulse 85 10/24/18 07:13 Resp 18 10/24/18 07:13 BP 152/73 10/24/18 07:13 Pulse Ox 95 10/24/18 07:13 Results - Laboratory Findings CBC and BMP: 10/24/18 04:16 10/24/18 04:16 ABG ABG pH 7.43 pH Units (7.32-7.45) 10/21/18 03:49 ABG pCO2 51 mmHg (35-45) H 10/21/18 03:49 ABG pO2 82 mmHg (85-104) L 10/21/18 03:49 ABG O2 Saturation 96 % (95-98) 10/21/18 03:49 PT/INR, D-dimer PT 10.7 Seconds (9.4-12.1) 10/22/18 09:03 Abnormal lab findings: Abnormal lab results MCHC 31.2 g/dL (31.6-35.5) L 10/24/18 04:16 MPV 9.2 fL (9.4-12.4) L 10/22/18 06:06 Lymphocytes # 0.5 K/mcL (0.6-4.6) L 10/24/18 04:16 Nucleated RBCs/100 WBC 0.2 /100 WBC (0) H 10/24/18 04:16 APTT 37.1 Seconds (26.0-36.0) H 10/22/18 09:03 ABG pCO2 51 mmHg (35-45) H 10/21/18 03:49 ABG pO2 82 mmHg (85-104) L 10/21/18 03:49 ABG HCO3 34 mEq/L (21-27) H 10/21/18 03:49 ABG Total CO2 36 mEq/L (20-26) H 10/21/18 03:49 ABG Base Excess 9 mEq/L (-2 to 3) H 10/21/18 03:49 VBG pCO2 52 mmHg (41-51) H 10/20/18 17:17 VBG pO2 68 mmHg (25-50) H 10/20/18 17:17 VBG HCO3 33 mEq/L (21-27) H 10/20/18 17:17 Potassium 3.3 mEq/L (3.5-5.1) L 10/20/18 12:40 Carbon Dioxide 37 mEq/L (23-29) H 10/24/18 04:16 Glucose 145 mg/dL (70-105) H 10/24/18 04:16 Calculated Osmolality 301 (280-300) H 10/23/18 05:23 Cholesterol 224 mg/dL (< 200) H 10/22/18 06:06 Ur Specific [place] 1.027 (1.010-1.025) H 10/20/18 16:46 Pleural Appearance Bloody (Clear) A 10/22/18 10:59 Pleural RBC 0.037 M/mcL (0.000-0.002) H 10/22/18 10:59 Pleural Tot Nuc Cell 1471 TNC/mcL (0-1000) H 10/22/18 10:59 - Microbiology Findings Microbiology Findings: Microbiology, Last 48 Hours 10/22/18 10:59 Body Fluid Culture - Preliminary Pleural Fluid 10/22/18 10:59 Acid Fast Stain - Final Pleural Fluid 10/22/18 10:59 Anaerobic Culture - Preliminary Pleural Fluid Culture is incubating. 10/22/18 10:59 Fungal Culture - Preliminary Pleural Fluid Culture is incubating. - Clinical Findings Intake & Output: Intake & Output 10/23/18 10/24/18 10/24/18 23:59 07:59 15:59 Intake Total 240 / 380 Balance 240 / 80 Weight 66.3 kg Consult Discharge Plan - Plan Referrals: Nasima Pascual, [employer] [facility] [facility] [Primary Care Provider] - - Attending Attestation I examined this patient and my medical decision-making was reviewed with the Resident Physician. I agree with the documented findings, disposition and treatment plan as described except to the extent set forth below. We independently had [id number] contact with the patient Patient seen and examined at bedside Labs, radiology, chart personally reviewed. Impression/Recs: Repeat therapeutic thoracentesis was performed under ultrasound guidance unfortunately procedure was complicated by pneumothorax status post chest tube placement. Repeat chest x-ray looks like lung is reinflated which is encouraging believe the chest tube and drain the rest of the pleural effusion likely come out over the next 24-48 hours patient will need analgesia during this time- Daughter updated at bedside <Chandu Husain - Last Filed: 10/24/18 14:45> Date of Encounter: 10/24/18 Time of Encounter: 09:00 Assessment and Plan (1) Acute on chronic respiratory failure with hypoxia and hypercapnia Current Visit: Yes Status: Acute Patient presented with acute hypoxic respiratory failure. Unable to maintain SPO2 greater than 80% prior to admission. In the ED was started on 6 L nasal cannula, SPO2 94%. Today, patient requiring 8 L/m O2 via oxygen mask to maintain SPO2 greater than 88%. She does have a remote history of significant tobacco abuse but denies any knowledge of COPD and does not follow with a substance addiction coordinator. CT chest did reveal evidence of centrilobular as well as paraseptal emphysematous changes consistent with diagnosis of COPD. Additionally, there was a moderate left sided pleural effusion revealed with possible left lower lobe consolidation noted. ABG revealed respiratory acidosis with metabolic alkalosis and normal pH. Yesterday, patient had thoracentesis performed without complication, patient tolerated procedure well. Repeat chest x-ray postthoracentesis negative for pneumothorax. Patient is currently day 4 azithromycin and Rocephin. Pleural fluid studies revealed an exudative effusion, predominantly neutrophilic, cytology still pending at this time. Consistent with possible parapneumonic effusion however neoplastic process cannot be excluded at this time. Therapeutic thoracentesis attempted to be performed this morning but with minimal fluid return. Rpt CXR showed pneumothorax. Chest tube placed with rpt CXR showing resolution of pneumothorax and decreased size of pleural effusion. Plan: -Continue scheduled DuoNeb, patient exhibits good response to these and will benefit from bronchodilator therapy on discharge -Continue supplemental O2 to maintain SpO2 greater than 88% -Continue Azithromycin/Ceftriaxone, currently day 4, patient will likely need 5- 7 days -May switch antibiotics to oral macrolide and oral Augmentin/cefdinir -Urinary Antigens negative for strep pneumo/legionella -Procalcitonin negative -Blood and Pleural Cultures show NGTD (2) COPD exacerbation Current Visit: Yes Status: Acute Continue Prednisone 30mg Scheduled duonebs ordered supplemental O2 azithromycin on board rest of plan as above (3) Pleural effusion Current Visit: Yes Status: Acute Plan as above Exudative effusion with predominantly neutrophilic but also lymphocytic involvement Consistent with parapneumonic effusion, neoplastic process not excluded pending cytology Repeat Thoracentesis performed today with development of pneumothorax and 250mL fluid removal Chest tube placed, keep to wall suction for today Repeat CXR ordered for tomorrow (4) Pneumonia Current Visit: Yes Status: Acute Plan as above and per primary team Continue ABX, urinary antigens and procalcitonin negative Qualifiers: Pneumonia type: due to unspecified organism Laterality: left Lung location: lower lobe of lung Qualified Code(s): J18.1 - Lobar pneumonia, unspecified organism Subjective Principal diagnosis: Acute Respiratory Failure Interval history: Patient seen and examined this morning. Patient continues to complain of shortness of breath, worse overnight. She denies cough or wheezing today though. A therapeutic thoracentesis was performed this morning with only about 250mL pleural fluid returned but the patient did incur a pneumothorax as a complic ation. A chest was inserted without complications and with immediate re- expansion of the the lung and symptomatic improvement. Objective PUL Vital signs: Last Vital Signs Temp 97.9 F 10/24/18 07:13 Pulse 85 10/24/18 07:13 Resp 18 10/24/18 07:13 BP 152/73 10/24/18 07:13 Pulse Ox 95 10/24/18 07:13 Gen.: Vitals noted. Patient comfortable. Nonlabored breathing Head: Atraumatic, normocephalic Eyes: Anicteric sclerae, EOMI ENT: Mucous membranes moist, oropharynx clear Neck: Trachea midline, no thyromegaly or lymphadenopathy CV: Regular rate and rhythm no murmurs, gallops, rubs Resp: Good respiratory effort, improved lung sounds in left lower lobe, no wheezing or rales noted, chest tube in place set to wall suction Abdomen: Soft, nontender Extremities: No edema, cyanosis, clubbing Results - Laboratory Findings CBC and BMP: 10/24/18 04:16 10/24/18 04:16 ABG ABG pH 7.43 pH Units (7.32-7.45) 10/21/18 03:49 ABG pCO2 51 mmHg (35-45) H 10/21/18 03:49 ABG pO2 82 mmHg (85-104) L 10/21/18 03:49 ABG O2 Saturation 96 % (95-98) 10/21/18 03:49 PT/INR, D-dimer PT 10.7 Seconds (9.4-12.1) 10/22/18 09:03 Abnormal lab findings: Abnormal lab results MCHC 31.2 g/dL (31.6-35.5) L 10/24/18 04:16 MPV 9.2 fL (9.4-12.4) L 10/22/18 06:06 Lymphocytes # 0.5 K/mcL (0.6-4.6) L 10/24/18 04:16 Nucleated RBCs/100 WBC 0.2 /100 WBC (0) H 10/24/18 04:16 APTT 37.1 Seconds (26.0-36.0) H 10/22/18 09:03 ABG pCO2 51 mmHg (35-45) H 10/21/18 03:49 ABG pO2 82 mmHg (85-104) L 10/21/18 03:49 ABG HCO3 34 mEq/L (21-27) H 10/21/18 03:49 ABG Total CO2 36 mEq/L (20-26) H 10/21/18 03:49 ABG Base Excess 9 mEq/L (-2 to 3) H 10/21/18 03:49 VBG pCO2 52 mmHg (41-51) H 10/20/18 17:17 VBG pO2 68 mmHg (25-50) H 10/20/18 17:17 VBG HCO3 33 mEq/L (21-27) H 10/20/18 17:17 Potassium 3.3 mEq/L (3.5-5.1) L 10/20/18 12:40 Carbon Dioxide 37 mEq/L (23-29) H 10/24/18 04:16 Glucose 145 mg/dL (70-105) H 10/24/18 04:16 Calculated Osmolality 301 (280-300) H 10/23/18 05:23 Cholesterol 224 mg/dL (< 200) H 10/22/18 06:06 Ur Specific [place] 1.027 (1.010-1.025) H 10/20/18 16:46 Pleural Appearance Bloody (Clear) A 10/22/18 10:59 Pleural RBC 0.037 M/mcL (0.000-0.002) H 10/22/18 10:59 Pleural Tot Nuc Cell 1471 TNC/mcL (0-1000) H 10/22/18 10:59 - Microbiology Findings Microbiology Findings: Microbiology, Last 48 Hours 10/22/18 10:59 Body Fluid Culture - Preliminary Pleural Fluid 10/22/18 10:59 Acid Fast Stain - Final Pleural Fluid 10/22/18 10:59 Anaerobic Culture - Preliminary Pleural Fluid Culture is incubating. 10/22/18 10:59 Fungal Culture - Preliminary Pleural Fluid Culture is incubating. - Clinical Findings Intake & Output: Intake & Output 10/23/18 10/24/18 10/24/18 23:59 07:59 15:59 Intake Total 240 / 380 Balance 240 / 80 Weight 66.3 kg
--- NOTE | 2018-10-24 11:48 | Procedure Note ---
<Chandu Husain - Last Filed: 10/24/18 11:46> Date of procedure: 10/24/18 Pre-op diagnosis: Pleural Effusion Post-op diagnosis: same Procedure: A time-out was completed verifying correct patient, procedure, site, positioning, and special equipment if applicable. The procedure was performed under ultrasound guidance. A moderately sized fluid collection was identified on ultrasound in the left pleural space. The patients left side was prepped and draped in proper sterile manner after identifying and marking the appropriate level from which to approach to the pleural fluid. 1% Lidocaine was used for local anesthesia of the skin and subcutaneous tissue. A finder needle was then used to further advance towards the pleural cavity with continue anesthesia and negative aspiration performed until a clear yellow/orange fluid was aspirated. A 10 blade scalpel was used to make a small incision through which the thoracentesis catheter was subsequently inserted without difficulty. The patient had roughly 250mL of yellow/orange fluid removed until significant foaming and decreased fluid output was noted. The catheter was slowly withdrawn with continued aspiration however no more fluid was able to be withdrawn. The catheter was removed and the incision site was dressed and covered with 2x2 and tegaderm bandage. The patient did tolerate the procedure well without complaints of worsening dyspnea nor chest pains. A post-procedure CXR was performed which did reveal a pneumothorax which was not present prior to the procedure. The fluid was sent for further laboratory evaluation and pathology. Complications: Pneumothorax Anesthesia: local Surgeon: Chandu Husain Was there an fitness assistant present: Yes Communication Professor: Familia Philip Estimated blood loss (cc): 1 Specimen: Pleural Fluid Pathology: other Condition: stable Disposition: no change <Familia Philip - Last Filed: 10/24/18 13:05> - Attending Attestation I was physically present and assisted/Supervised Dr Husain. The procedure was done with ultrasound guidance. There is a complication of a pneumothorax which I chest tube was placed for subsequently.
[2018-10-24 12:14] LABS: Albumin 3.4 g/dL (3.5-5.7); Albumin/Globulin Ratio 1.2 (1.1-2.2); Globulin 2.9 g/dL (2.4-3.5); Total Protein 6.3 g/dL (6.4-8.9)
[2018-10-24] MEDS: *HR* OxyCODONE/APAP 5/325 TABLET PO PRN ×2 (12:49→17:51)
[2018-10-24 13:14] LABS: RBC,Pleural Fluid 0.012 M/mcL
[2018-10-24 13:47] LABS: Total Protein,Pleural Fluid 3.1 g/dL
--- NOTE | 2018-10-24 13:58 | Procedure Note ---
Date of procedure: 10/24/18 Pre-op diagnosis: Left-sided pneumothorax and pleural effusion Post-op diagnosis: same Procedure: Procedure: Left-sided chest tube placement for pneumothorax and pleural effusion. After obtaining consent from the patient and while patient is in a reclined po sition the left side effusion was identified with the bedside ultrasound and then a timeout was called and left side twice cleaned and draped and prepped in the usual fashion and with 1% lidocaine between 6 and 7 intercostal space a spot was identified and fluid was found once needle was passed and immediately a gush of air and was returned with a needle insertion. The guidewire was passed through the needle and the needle was removed and subsequently the area was dilated and 14-Russian Cook chest tube was placed and connected with the atrium with the suction with immediate improvement in patient's symptoms and also air- leak was stopped. Then the chest tube was secured with a suture around the tube and chest x-ray was obtained with improvement in the pneumothorax. Patient tolerated procedure very well with no immediate complications. Anesthesia: local Surgeon: Evans Travis Was there an account management assistant present: No Estimated blood loss (cc): 0.5 Specimen: 0 Condition: stable Disposition: floor
[2018-10-24 14:13] LABS: Appearance of Pleural Fl Cloudy (Clear); Basophils,Pleural Fluid 0 %; Eosinophils,Pleural Fluid 0 %; Monocytes,Pleural Fluid 0 %
[2018-10-24] MEDS: traZODone 50 MG TABLET PO SCH (20:11)
[2018-10-25] MEDS: Ipratropium/Albuterol Neb 3 ML IH SCH ×4 (03:30→22:05)
[2018-10-25] MEDS: *HR* Heparin 5,000 UNIT/ML VIAL SQ SCH ×3 (05:10→19:55)
[2018-10-25] MEDS: *HR* OxyCODONE/APAP 5/325 TABLET PO PRN (05:11)
[2018-10-25 07:13] LABS: Basophils % 0.1 %; Eosinophils % 0.3 %; Hematocrit 42.1 % (35.3-44.9); Immature Granulocytes % 0.5 % (0-4); Lymphocytes % 9.4 %; Mean Corpuscular HGB Conc 30.9 g/dL (31.6-35.5); Mean Corpuscular Hemoglobin 28.8 pg (28.0-33.3); Mean Corpuscular Volume 93.1 fL (83.0-100.0); Mean Platelet Volume 10.2 fL (9.4-12.4); Monocytes # 0.7 K/mcL (0.0-1.3); Monocytes % 6.9 %; Neutrophils # 8.4 K/mcL (1.6-8.9); Platelet Count 174 K/mcL (140-400); Red Blood Count 4.52 M/mcL (3.82-4.97); Red Cell Distribution Width 13.3 % (11.5-14.5); Segmented Neutrophils % 82.8 %; White Blood Count 10.1 K/mcL (4.3-11.1)
--- NOTE | 2018-10-25 07:27 | Internal Med Progress Note ---
Hospitalist Progress Note - Encounter Date of Encounter: 10/25/18 Time of Encounter: 11:23 - Subjective Interval History: s/p thoracentesis and chest tube placement for pneumothorax in last 24hrs - Exam Vitals: Temp Pulse Resp BP Pulse Ox 98.2 F 81 17 125/66 94 10/25/18 06:56 10/25/18 06:56 10/25/18 06:56 10/25/18 06:56 10/25/18 06:56 Exam: GENERAL: Mild respiratory distress on high flow O2 via oxy mask. Alert and Oriented 2 (baseline) HEENT: EOMI, PERRLA MOUTH: Moist oral mucosa NECK:No JVD, No lymph nodes. CHEST AND LUNGS: Bronchial breath sounds in left middle and lower zones. No wheezing HEART: S1 and S2 normal, no murmurs ABDOMEN: Soft, nontender, no organomegaly SKIN: Normal color, no rashes, no lesions EXTREMITIES: No deformity, no edema, no tenderness, no joint swelling or clubbing NEUROLOGICAL: Oriented to place and person but not to time. Normal motor and sensory exam. PSYCHE: Pleasant - Assessment and Plan (1) Acute on chronic respiratory failure with hypoxia and hypercapnia Current Visit: Yes Status: Acute Assessment and Plan: Pt comes in with shortness of breath and acute hypoxic hypercapnic respiratory failure secondary to COPD exacerbation and new pleural effusion possbly 2/2 to pneumonia Continue duonebs, ceftriaxone and azithromycin and steroids s/p thoracentesis with removal of 1L of exudative fluid on 10/23. continue antibiotics to complete 7 day course Pulm performed repeat thoracentesis on 10/24 with withdrawal of 250cc of fluid. Procedure was complicated by pneumothorax and chest tube was placed Chest tube draining and patient's oxygen being weaned down (2) Pneumothorax Current Visit: Yes Status: Acute Assessment and Plan: See #1. s/p thoracentesis. Chest tube in place and draining (3) Pneumonia Current Visit: Yes Status: Acute Assessment and Plan: Management as above.CT findings show left lower lobe pneumonia and pleural effusion. On ceftriaxone and azithromycin. (4) Pleural effusion Current Visit: Yes Status: Acute Assessment and Plan: Patient has a history of recurrent pneumonias and right breast cancer status post radical mastectomy. CT scan shows moderate to large sized pleural effusion on the left. Pulmonology consulted and performed thoracentesis x 2 Continue antibiotics (5) Aortic stenosis Current Visit: Yes Status: Acute Assessment and Plan: Patient has a loud systolic murmur in the second right intercostal space radiating to carotids. Echo findings: EF of 50%, moderate aortic stenosis, indeterminate left diastolic function. Normal right ventricular structure and function, mild concentric left ventricular hypertrophy, mild aortic regurg with no evidence of pulmonary hypertension We will monitor (6) COPD exacerbation Current Visit: Yes Status: Acute Assessment and Plan: Also patient denies a history of COPD. She has a significant smoking history and CT findings of moderate to severe emphysema. Cotninue duonebs, antibiotics and steroids (7) Hypertension Current Visit: Yes Status: Chronic Assessment and Plan: Resume home meds Monitor. (8) Hyperlipidemia Current Visit: Yes Status: Chronic Assessment and Plan: Resume statins. (9) Dementia Current Visit: Yes Status: Chronic Assessment and Plan: Patient currently not on any meds. According to daughter they tried using donepezil patches which patient had severe allergic reactions to. Continue Memantine. (10) Hypokalemia Current Visit: Yes Status: Acute Assessment and Plan: Resolved K 4.1 Monitor (11) DVT prophylaxis Current Visit: Yes Status: Acute Assessment and Plan: Subcutaneous heparin - Time Spent with Patient Total time spent is greater than 50% in coordination of care (as documented) at patient's floor/unit and/or counseling patient: Internal Medicine: Result - Labs CBC & Chem 7: 10/25/18 06:30 10/25/18 06:30 Labs: Short CBC 10/25/18 Range/Units 06:30 WBC 10.1 (4.3-11.1) K/mcL Hgb 13.0 (11.5-15.4) g/dL Hct 42.1 (35.3-44.9) % Plt Count 174 (140-400) K/mcL Neutrophils # 8.4 (1.6-8.9) K/mcL Liver Function 10/24/18 Range/Units 11:41 Albumin 3.4 L (3.5-5.7) g/dL - ABG Interpretation ABG results: ABG ABG pH 7.43 pH Units (7.32-7.45) 10/21/18 03:49 ABG pCO2 51 mmHg (35-45) H 10/21/18 03:49 ABG pO2 82 mmHg (85-104) L 10/21/18 03:49 ABG O2 Saturation 96 % (95-98) 10/21/18 03:49 PT/INR, D-dimer PT 10.7 Seconds (9.4-12.1) 10/22/18 09:03 - Impressions Impressions Chest X-Ray 10/24/18 09:42 IMPRESSION: Decreasing left pleural effusion with left apical pneumothorax 4.2 cm. D/ / Clifford Harris MD / Clifford Harris MD Interpreting Provider: Clifford Harris MD Chest X-Ray 10/24/18 10:43 IMPRESSION: Interval resolution of left pneumothorax following chest tube placement. Stable small to moderate left pleural effusion with basilar atelectasis and/or consolidation. D/ / Isaac Chapman MD / Isaac Chapman MD Interpreting Provider: Isaac Chapman MD Consult Discharge Plan - Plan Referrals: Nasima Pascual CNP [Primary Care Provider] - (2) Pneumothorax Qualifiers: Pneumothorax type: postprocedural Qualified Code(s): J95.811 - Postprocedural pneumothorax (3) Pneumonia Qualifiers: Pneumonia type: due to unspecified organism Laterality: left Lung location: lower lobe of lung Qualified Code(s): J18.1 - Lobar pneumonia, unspecified o rganism (5) Aortic stenosis Qualifiers: Cardiac valve disease etiology: etiology unspecified Qualified Code(s): I35.0 - Nonrheumatic aortic (valve) stenosis (7) Hypertension Qualifiers: Hypertension type: other secondary hypertension Qualified Code(s): I15.8 - Other secondary hypertension (8) Hyperlipidemia Qualifiers: Hyperlipidemia type: mixed hyperlipidemia Qualified Code(s): E78.2 - Mixed hyperlipidemia (9) Dementia Qualifiers: Dementia type: unspecified type Dementia behavioral disturbance: without behavioral disturbance Qualified Code(s): F03.90 - Unspecified dementia without behavioral disturbance
[2018-10-25 07:30] LABS: BUN/Creatinine Ratio 32 (6-26); Blood Urea Nitrogen 21 mg/dL (8-23); Carbon Dioxide 36 mEq/L (23-29); Chloride 95 mEq/L (98-107); Glucose 114 mg/dL (70-105); Magnesium 1.9 mg/dL (1.6-2.6); Osmolality,Calculated 288 (280-300); Phosphorous 3.6 mg/dL (2.7-4.5); Potassium 4.3 mEq/L (3.5-5.1); Sodium 137 mEq/L (136-145); eGFR For African Americans > 60 (> 60); eGFR For Non-African Americans > 60 (> 60)
--- NOTE | 2018-10-25 07:32 | Pulmonology Progress Note ---
Date of Encounter: 10/25/18 Time of Encounter: 07:31 Assessment and Plan (1) Pleural effusion Current Visit: Yes Status: Acute This is an exudative neutrophilic predominant process and cytology from first of fluid was negative for malignancy still with small pleural effusion for which I am going to try to position the patient on her left side to drain more effectively through chest tube once this is happened and she is draining less than 250 mL a day and then we can remove chest tube. (2) Pneumonia Current Visit: Yes Status: Acute Would treat for 5 days with macrolide and 7 days total with beta-lactam Qualifiers: Pneumonia type: due to unspecified organism Laterality: left Lung location: lower lobe of lung Qualified Code(s): J18.1 - Lobar pneumonia, unspecified organism (3) COPD exacerbation Current Visit: Yes Status: Acute 5 day burst of prednisone continue scheduled bronchodilators (4) Pneumothorax Current Visit: Yes Status: Acute This is resolved plan to transition to waterseal today and likely can take chest tube out later Subjective Principal diagnosis: Acute Respiratory Failure Interval history: I seen Nicky today in her room when she was sitting up eating her breakfast she denied any complaints except some mild tenderness where the chest tube was inserted. She slept well overnight. In total had about a liter output from the chest tube of serosanguineous drainage Objective PUL Vital signs: Last Vital Signs Temp 98.2 F 10/25/18 06:56 Pulse 81 10/25/18 06:56 Resp 17 10/25/18 06:56 BP 125/66 10/25/18 06:56 Pulse Ox 94 10/25/18 06:56 General appearance: no acute distress Eyes: nonicteric Effort: normal Auscultation: left: diminished breath sounds (base) Cardiovascular: regular rate and rhythm Gastrointestinal: normoactive bowel sounds, soft, non-tender Integumentary: normal Extremities: no edema Musculoskeletal: no deformities normal mental status, non-focal exam mood appropriate Results - Laboratory Findings CBC and BMP: 10/25/18 06:30 10/25/18 06:30 ABG ABG pH 7.43 pH Units (7.32-7.45) 10/21/18 03:49 ABG pCO2 51 mmHg (35-45) H 10/21/18 03:49 ABG pO2 82 mmHg (85-104) L 10/21/18 03:49 ABG O2 Saturation 96 % (95-98) 10/21/18 03:49 PT/INR, D-dimer PT 10.7 Seconds (9.4-12.1) 10/22/18 09:03 Abnormal lab findings: Abnormal lab results MCHC 30.9 g/dL (31.6-35.5) L 10/25/18 06:30 MPV 9.2 fL (9.4-12.4) L 10/22/18 06:06 Lymphocytes # 0.5 K/mcL (0.6-4.6) L 10/24/18 04:16 Nucleated RBCs/100 WBC 0.2 /100 WBC (0) H 10/24/18 04:16 APTT 37.1 Seconds (26.0-36.0) H 10/22/18 09:03 ABG pCO2 51 mmHg (35-45) H 10/21/18 03:49 ABG pO2 82 mmHg (85-104) L 10/21/18 03:49 ABG HCO3 34 mEq/L (21-27) H 10/21/18 03:49 ABG Total CO2 36 mEq/L (20-26) H 10/21/18 03:49 ABG Base Excess 9 mEq/L (-2 to 3) H 10/21/18 03:49 VBG pCO2 52 mmHg (41-51) H 10/20/18 17:17 VBG pO2 68 mmHg (25-50) H 10/20/18 17:17 VBG HCO3 33 mEq/L (21-27) H 10/20/18 17:17 Potassium 3.3 mEq/L (3.5-5.1) L 10/20/18 12:40 Chloride 95 mEq/L (98-107) L 10/25/18 06:30 Carbon Dioxide 36 mEq/L (23-29) H 10/25/18 06:30 BUN/Creatinine Ratio 32 (6-26) H 10/25/18 06:30 Glucose 114 mg/dL (70-105) H 10/25/18 06:30 Calculated Osmolality 301 (280-300) H 10/23/18 05:23 Serum Total Protein 6.3 g/dL (6.4-8.9) L 10/24/18 11:41 Albumin 3.4 g/dL (3.5-5.7) L 10/24/18 11:41 Cholesterol 224 mg/dL (< 200) H 10/22/18 06:06 Ur Specific [place] 1.027 (1.010-1.025) H 10/20/18 16:46 Pleural Appearance Cloudy (Clear) A 10/24/18 09:45 Pleural RBC 0.012 M/mcL (0.000-0.002) H 10/24/18 09:45 Pleural Tot Nuc Cell 3197 TNC/mcL (0-1000) H 10/24/18 09:45 - Microbiology Findings Microbiology Findings: Microbiology, Last 48 Hours 10/24/18 09:45 Gram Stain - Final Pleural Fluid Body Fluid Culture - Preliminary 10/22/18 10:59 Body Fluid Culture - Preliminary Pleural Fluid 10/22/18 10:59 Acid Fast Stain - Final Pleural Fluid - Diagnostic Findings Chest x-ray: report reviewed, image reviewed - Clinical Findings Intake & Output: Intake & Output 10/24/18 10/24/18 10/25/18 15:59 23:59 07:59 Intake Total 240 / 240 Output Total 600 / 600 550 / 550 Balance -360 / -360 -550 / -550 Weight 67.4 kg Consult Discharge Plan - Plan Referrals: Nasima Pascual, GRANULATING MACHINE OPERATOR [Primary Care Provider] -
[2018-10-25] MEDS: cefTRIAXone 2,000 MG in Water for inj. (sterile) 20 ML IVP SCH (09:25)
[2018-10-25] MEDS: predniSONE 10 MG TABLET PO SCH (09:26)
[2018-10-25] MEDS: Rivastigmine Tartrate (oral) 1.5 MG CAPSULE PO SCH ×2 (09:31→19:54)
[2018-10-25] MEDS: amLODIPine 5 MG TABLET PO SCH (09:31)
[2018-10-25] MEDS: Azithromycin 250 MG TABLET PO SCH (09:31)
[2018-10-25] MEDS: Budesonide/Formoterol 160/4.5 1 PUFF INH IH SCH ×2 (10:32→22:05)
[2018-10-25] MEDS: traZODone 50 MG TABLET PO SCH (19:55)
[2018-10-26 03:24] LABS: Fluid Source for Bilirubin PLEURAL FLUID; Fluid Source for CEA PLEURAL FLUID
[2018-10-26] MEDS: *HR* Heparin 5,000 UNIT/ML VIAL SQ SCH ×3 (03:28→20:01)
[2018-10-26] MEDS: Ipratropium/Albuterol Neb 3 ML IH SCH ×4 (04:12→21:48)
--- NOTE | 2018-10-26 06:40 | Pulmonology Progress Note ---
Date of Encounter: 10/26/18 Time of Encounter: 06:40 Assessment and Plan (1) Pleural effusion Current Visit: Yes Status: Acute Exudative neutrophilic predominant process possibly parapneumonic. She has a history of malignancy in this very well could a malignant process recommend repeating his CT scan to further characterize underlying lung parenchyma after drainage there on the left side. This would exclude tumor etc. Could consider of pleuroscopy if this effusion re-accumulates And may eventually need outpatient pulmonary follow-up in 1-2 weeks at time of discharge (2) Pneumonia Current Visit: Yes Status: Acute Would treat for 5 days with macrolide and 7 days total with beta-lactam Qualifiers: Pneumonia type: due to unspecified organism Laterality: left Lung location: lower lobe of lung Qualified Code(s): J18.1 - Lobar pneumonia, unspecified organism (3) COPD exacerbation Current Visit: Yes Status: Acute 5 day burst of prednisone continue scheduled bronchodilators (4) Pneumothorax Current Visit: Yes Status: Acute Appears to have Apical PTx accumulate today. Will place back on -20 cmH20 wall suction and send for CT of Chest Qualifiers: Pneumothorax type: postprocedural Qualified Code(s): J95.811 - Postprocedural pneumothorax Subjective Principal diagnosis: Acute Respiratory Failure Interval history: No acute events overnight. H20 Seal overnight. Looks to have small apical PTx on today's CXR. Respiratory tanner she is breathing ok today and denies pain. Objective PUL Vital signs: Last Vital Signs Temp 97.6 F 10/26/18 04:25 Pulse 87 10/26/18 04:25 Resp 14 10/26/18 04:25 BP 116/64 10/26/18 04:25 Pulse Ox 95 10/26/18 04:25 General appearance: no acute distress Eyes: nonicteric ENT: oropharynx moist Auscultation: left: diminished breath sounds Cardiovascular: regular rate and rhythm Gastrointestinal: normoactive bowel sounds, soft, non-tender Integumentary: normal Extremities: no cyanosis, no edema, no clubbing Musculoskeletal: no deformities normal mental status, non-focal exam mood appropriate Results - Laboratory Findings CBC and BMP: 10/26/18 06:56 10/26/18 06:56 ABG ABG pH 7.43 pH Units (7.32-7.45) 10/21/18 03:49 ABG pCO2 51 mmHg (35-45) H 10/21/18 03:49 ABG pO2 82 mmHg (85-104) L 10/21/18 03:49 ABG O2 Saturation 96 % (95-98) 10/21/18 03:49 PT/INR, D-dimer PT 10.7 Seconds (9.4-12.1) 10/22/18 09:03 Abnormal lab findings: Abnormal lab results MCHC 30.9 g/dL (31.6-35.5) L 10/25/18 06:30 MPV 9.2 fL (9.4-12.4) L 10/22/18 06:06 Lymphocytes # 0.5 K/mcL (0.6-4.6) L 10/24/18 04:16 Nucleated RBCs/100 WBC 0.2 /100 WBC (0) H 10/24/18 04:16 APTT 37.1 Seconds (26.0-36.0) H 10/22/18 09:03 ABG pCO2 51 mmHg (35-45) H 10/21/18 03:49 ABG pO2 82 mmHg (85-104) L 10/21/18 03:49 ABG HCO3 34 mEq/L (21-27) H 10/21/18 03:49 ABG Total CO2 36 mEq/L (20-26) H 10/21/18 03:49 ABG Base Excess 9 mEq/L (-2 to 3) H 10/21/18 03:49 VBG pCO2 52 mmHg (41-51) H 10/20/18 17:17 VBG pO2 68 mmHg (25-50) H 10/20/18 17:17 VBG HCO3 33 mEq/L (21-27) H 10/20/18 17:17 Potassium 3.3 mEq/L (3.5-5.1) L 10/20/18 12:40 Chloride 95 mEq/L (98-107) L 10/25/18 06:30 Carbon Dioxide 36 mEq/L (23-29) H 10/25/18 06:30 BUN/Creatinine Ratio 32 (6-26) H 10/25/18 06:30 Glucose 114 mg/dL (70-105) H 10/25/18 06:30 Calculated Osmolality 301 (280-300) H 10/23/18 05:23 Serum Total Protein 6.3 g/dL (6.4-8.9) L 10/24/18 11:41 Albumin 3.4 g/dL (3.5-5.7) L 10/24/18 11:41 Cholesterol 224 mg/dL (< 200) H 10/22/18 06:06 Ur Specific [place] 1.027 (1.010-1.025) H 10/20/18 16:46 Pleural Appearance Cloudy (Clear) A 10/24/18 09:45 Pleural RBC 0.012 M/mcL (0.000-0.002) H 10/24/18 09:45 Pleural Tot Nuc Cell 3197 TNC/mcL (0-1000) H 10/24/18 09:45 - Microbiology Findings Microbiology Findings: Microbiology, Last 48 Hours 10/24/18 09:45 Acid Fast Stain - Final Pleural Fluid 10/20/18 12:59 Blood Culture - Final Peripheral Venipuncture No growth. Final report. 10/22/18 10:59 Body Fluid Culture - Final Pleural Fluid 10/20/18 12:40 Blood Culture - Final Peripheral Venipuncture No growth. Final report. 10/24/18 09:45 Gram Stain - Final Pleural Fluid Body Fluid Culture - Preliminary 10/22/18 10:59 Anaerobic Culture - Preliminary Pleural Fluid At this time, no anaerobic growth is present. The culture will be finalized after 5 days of incubation. - Diagnostic Findings Chest x-ray: report reviewed, image reviewed - Clinical Findings Intake & Output: Intake & Output 10/25/18 10/25/18 10/26/18 15:59 23:59 07:59 Intake Total 240 / 240 Output Total 70 / 660 40 / 660 550 / 550 Balance 170 / -420 -40 / -420 -550 / -550 Weight 66.2 kg Consult Discharge Plan - Plan Referrals: Nasima Pascual, LENS DOTTER [Primary Care Provider] -
[2018-10-26 07:06] LABS: Basophils % 0.1 %; Eosinophils # 0.1 K/mcL (0.0-0.6); Eosinophils % 1.1 %; Hematocrit 41.9 % (35.3-44.9); Hemoglobin 12.8 g/dL (11.5-15.4); Immature Granulocytes % 0.4 % (0-4); Lymphocytes # 0.9 K/mcL (0.6-4.6); Lymphocytes % 10.3 %; Mean Corpuscular HGB Conc 30.5 g/dL (31.6-35.5); Mean Corpuscular Hemoglobin 29.1 pg (28.0-33.3); Mean Corpuscular Volume 95.2 fL (83.0-100.0); Mean Platelet Volume 9.4 fL (9.4-12.4); Monocytes # 0.6 K/mcL (0.0-1.3); Neutrophils # 7.4 K/mcL (1.6-8.9); Platelet Count 176 K/mcL (140-400); Red Cell Distribution Width 13.2 % (11.5-14.5); Segmented Neutrophils % 81.1 %; White Blood Count 9.1 K/mcL (4.3-11.1)
[2018-10-26 07:27] LABS: BUN/Creatinine Ratio 30 (6-26); Blood Urea Nitrogen 19 mg/dL (8-23); Calcium 8.9 mg/dL (8.6-10.3); Carbon Dioxide 40 mEq/L (23-29); Chloride 96 mEq/L (98-107); Glucose 106 mg/dL (70-105); Magnesium 2.1 mg/dL (1.6-2.6); Osmolality,Calculated 293 (280-300); Potassium 4.5 mEq/L (3.5-5.1); Sodium 140 mEq/L (136-145); eGFR For African Americans > 60 (> 60); eGFR For Non-African Americans > 60 (> 60)
--- NOTE | 2018-10-26 07:31 | Internal Med Progress Note ---
Hospitalist Progress Note - Encounter Date of Encounter: 10/26/18 Time of Encounter: 07:30 - Subjective Interval History: No acute events overnight - Exam Vitals: Temp Pulse Resp BP Pulse Ox 98.2 F 89 18 136/66 90 10/26/18 07:26 10/26/18 07:26 10/26/18 07:26 10/26/18 07:10/26/18 07:26 Exam: GENERAL: Mild respiratory distress on high flow O2 via oxy mask. Alert and Oriented 2 (baseline) HEENT: EOMI, PERRLA MOUTH: Moist oral mucosa NECK:No JVD, No lymph nodes. CHEST AND LUNGS: Bronchial breath sounds in left middle and lower zones. No wheezing HEART: S1 and S2 normal, no murmurs ABDOMEN: Soft, nontender, no organomegaly SKIN: Normal color, no rashes, no lesions EXTREMITIES: No deformity, no edema, no tenderness, no joint swelling or clubbing NEUROLOGICAL: Oriented to place and person but not to time. Normal motor and sensory exam. PSYCHE: Pleasant - Assessment and Plan (1) Acute on chronic respiratory failure with hypoxia and hypercapnia Current Visit: Yes Status: Acute Assessment and Plan: Pt comes in with shortness of breath and acute hypoxic hypercapnic respiratory failure secondary to COPD exacerbation and new pleural effusion possibly 2/2 to pneumonia Continue duonebs, ceftriaxone and azithromycin and steroids s/p thoracentesis with removal of 1L of exudative fluid on 10/23. continue antibiotics to complete 7 day course Pulm performed repeat thoracentesis on 10/24 with withdrawal of 250cc of fluid. Procedure was complicated by pneumothorax and chest tube was placed Chest tube draining and patient's oxygen being weaned down Respiratory status improved. Plan to d/c chest tube per pulmonary (2) Pneumothorax Current Visit: Yes Status: Acute Assessment and Plan: See #1. s/p thoracentesis. Chest tube in place and draining (3) Pneumonia Current Visit: Yes Status: Acute Assessment and Plan: Management as above.CT findings show left lower lobe pneumonia and pleural effusion. On ceftriaxone and azithromycin. (4) Pleural effusion Current Visit: Yes Status: Acute Assessment and Plan: Patient has a history of recurrent pneumonias and right breast cancer status post radical mastectomy. CT scan shows moderate to large sized pleural effusion on the left. Pulmonology consulted and performed thoracentesis x 2 Continue antibiotics (5) Aortic stenosis Current Visit: Yes Status: Acute Assessment and Plan: Patient has a loud systolic murmur in the second right intercostal space radiating to carotids. Echo findings: EF of 50%, moderate aortic stenosis, indeterminate left diastolic function. Normal right ventricular structure and function, mild concentric left ventricular hypertrophy, mild aortic regurg with no evidence of pulmonary hyp ertension We will monitor (6) COPD exacerbation Current Visit: Yes Status: Acute Assessment and Plan: Also patient denies a history of COPD. She has a significant smoking history and CT findings of moderate to severe emphysema. Cotninue duonebs, antibiotics and steroids (7) Hypertension Current Visit: Yes Status: Chronic Assessment and Plan: Resume home meds Monitor. (8) Hyperlipidemia Current Visit: Yes Status: Chronic Assessment and Plan: Resume statins. (9) Dementia Current Visit: Yes Status: Chronic Assessment and Plan: Patient currently not on any meds. According to daughter they tried using donepezil patches which patient had severe allergic reactions to. Continue Memantine. (10) Hypokalemia Current Visit: Yes Status: Acute Assessment and Plan: Resolved K 4.1 Monitor (11) DVT prophylaxis Current Visit: Yes Status: Acute Assessment and Plan: Subcutaneous heparin - Time Spent with Patient Total time spent is greater than 50% in coordination of care (as documented) at patient's floor/unit and/or counseling patient: Internal Medicine: Result - Labs CBC & Chem 7: 10/26/18 06:56 10/26/18 06:56 Labs: Short CBC 10/26/18 Range/Units 06:56 WBC 9.1 (4.3-11.1) K/mcL Hgb 12.8 (11.5-15.4) g/dL Hct 41.9 (35.3-44.9) % Plt Count 176 (140-400) K/mcL Neutrophils # 7.4 (1.6-8.9) K/mcL BMP 10/25/18 10/26/18 06:30 06:56 Sodium 137 140 Potassium 4.3 4.5 Chloride 95 L 96 L Carbon Dioxide 36 H 40 H* BUN 21 19 Creatinine 0.65 0.64 Glucose 114 H 106 H Calcium 9.0 8.9 - ABG Interpretation ABG results: ABG ABG pH 7.43 pH Units (7.32-7.45) 10/21/18 03:49 ABG pCO2 51 mmHg (35-45) H 10/21/18 03:49 ABG pO2 82 mmHg (85-104) L 10/21/18 03:49 ABG O2 Saturation 96 % (95-98) 10/21/18 03:49 PT/INR, D-dimer PT 10.7 Seconds (9.4-12.1) 10/22/18 09:03 - Impressions Impressions Chest X-Ray 10/25/18 06:00 IMPRESSION: 1. Interval placement of left chest tube. Resolution of left apical pneumothorax. 2. Small to moderate size left pleural effusion, decreased in size from prior study. Left basilar atelectasis/infiltrate. D/ / Jorge Alberto Kessler MD / Jorge Alberto Kessler MD Interpreting Provider: Jorge Alberto Kessler MD Chest X-Ray 10/25/18 11:41 IMPRESSION: Stable chest without pneumothorax. D/ : / 10/25/2018 14:31:17 Clifford Harris MD / earnold Interpreting Provider: Clifford Harris MD Consult Discharge Plan - Plan Referrals: Nasima Psacual CNP [Primary Care Provider] - (2) Pneumothorax Qualifiers: Pneumothorax type: postprocedural Qualified Code(s): J95.811 - Postprocedural pneumothorax (3) Pneumonia Qualifiers: Pneumonia type: due to unspecified organism Laterality: left Lung location: lower lobe of lung Qualified Code(s): J18.1 - Lobar pneumonia, unspecified or ganism (5) Aortic stenosis Qualifiers: Cardiac valve disease etiology: etiology unspecified Qualified Code(s): I35.0 - Nonrheumatic aortic (valve) stenosis (7) Hypertension Qualifiers: Hypertension type: other secondary hypertension Qualified Code(s): I15.8 - Other secondary hypertension (8) Hyperlipidemia Qualifiers: Hyperlipidemia type: mixed hyperlipidemia Qualified Code(s): E78.2 - Mixed hyperlipidemia (9) Dementia Qualifiers: Dementia type: unspecified type Dementia behavioral disturbance: without behavioral disturbance Qualified Code(s): F03.90 - Unspecified dementia without behavioral disturbance
[2018-10-26] MEDS: cefTRIAXone 2,000 MG in Water for inj. (sterile) 20 ML IVP SCH (09:26)
[2018-10-26] MEDS: predniSONE 10 MG TABLET PO SCH (09:27)
[2018-10-26] MEDS: Rivastigmine Tartrate (oral) 1.5 MG CAPSULE PO SCH ×2 (09:27→19:55)
[2018-10-26] MEDS: amLODIPine 5 MG TABLET PO SCH (09:27)
[2018-10-26] MEDS: Azithromycin 250 MG TABLET PO SCH (09:28)
[2018-10-26] MEDS: Budesonide/Formoterol 160/4.5 1 PUFF INH IH SCH ×2 (10:37→21:46)
[2018-10-26 15:24] LABS: Fluid Source for Albumin PLEURAL FLUID
[2018-10-26] MEDS: *HR* OxyCODONE/APAP 5/325 TABLET PO PRN (15:34)
[2018-10-26] MEDS: traZODone 50 MG TABLET PO SCH (19:55)
[2018-10-27] MEDS: *HR* Heparin 5,000 UNIT/ML VIAL SQ SCH ×3 (03:47→22:06)
[2018-10-27] MEDS: Ipratropium/Albuterol Neb 3 ML IH SCH ×4 (04:03→20:04)
--- NOTE | 2018-10-27 07:34 | Internal Med Progress Note ---
Hospitalist Progress Note - Encounter Date of Encounter: 10/27/18 Time of Encounter: 07:33 - Subjective Interval History: Chest tube d/c this am - Exam Vitals: Temp Pulse Resp BP Pulse Ox 98.2 F 90 15 130/68 95 10/27/18 07:25 10/27/18 07:25 10/27/18 07:25 10/27/18 07:25 10/27/18 07:25 Exam: GENERAL: Mild respiratory distress on high flow O2 via oxy mask. Alert and Oriented 2 (baseline) HEENT: EOMI, PERRLA MOUTH: Moist oral mucosa NECK:No JVD, No lymph nodes. CHEST AND LUNGS: Bronchial breath sounds in left middle and lower zones. No wheezing HEART: S1 and S2 normal, no murmurs ABDOMEN: Soft, nontender, no organomegaly SKIN: Normal color, no rashes, no lesions EXTREMITIES: No deformity, no edema, no tenderness, no joint swelling or clubbing NEUROLOGICAL: Oriented to place and person but not to time. Normal motor and sensory exam. PSYCHE: Pleasant - Assessment and Plan (1) Acute on chronic respiratory failure with hypoxia and hypercapnia Current Visit: Yes Status: Acute Assessment and Plan: Pt comes in with shortness of breath and acute hypoxic hypercapnic respiratory failure secondary to COPD exacerbation and new pleural effusion possibly 2/2 to pneumonia Continue duonebs, ceftriaxone and azithromycin and steroids s/p thoracentesis with removal of 1L of exudative fluid on 10/23. continue antibiotics to complete 7 day course Pulm performed repeat thoracentesis on 10/24 with withdrawal of 250cc of fluid. Procedure was complicated by pneumothorax and chest tube was placed Respiratory status improved. Chest tube removed this am. Pleuroscopy if effusion reaccumulates (2) Pneumothorax Current Visit: Yes Status: Acute Assessment and Plan: See #1. s/p thoracentesis. Chest tube removed this am (3) Pneumonia Current Visit: Yes Status: Acute Assessment and Plan: Management as above.CT findings show left lower lobe pneumonia and pleural eff usion. On ceftriaxone and azithromycin. (4) Pleural effusion Current Visit: Yes Status: Acute Assessment and Plan: Patient has a history of recurrent pneumonias and right breast cancer status post radical mastectomy. CT scan shows moderate to large sized pleural effusion on the left. Pulmonology consulted and performed thoracentesis x 2 Continue antibiotics (5) Aortic stenosis Current Visit: Yes Status: Acute Assessment and Plan: Patient has a loud systolic murmur in the second right intercostal space r adiating to carotids. Echo findings: EF of 50%, moderate aortic stenosis, indeterminate left diastolic function. Normal right ventricular structure and function, mild concentric left ventricular hypertrophy, mild aortic regurg with no evidence of pulmonary hypertension We will monitor (6) COPD exacerbation Current Visit: Yes Status: Acute Assessment and Plan: Also patient denies a history of COPD. She has a significant smoking history and CT findings of moderate to severe emphysema. Cotninue duonebs, antibiotics and steroids (7) Hypertension Current Visit: Yes Status: Chronic Assessment and Plan: Resume home meds Monitor. (8) Hyperlipidemia Current Visit: Yes Status: Chronic Assessment and Plan: Resume statins. (9) Dementia Current Visit: Yes Status: Chronic Assessment and Plan: Patient currently not on any meds. According to daughter they tried using donepezil patches which patient had severe allergic reactions to. Continue Memantine. (10) Hypokalemia Current Visit: Yes Status: Acute Assessment and Plan: Resolved K 4.1 Monitor (11) DVT prophylaxis Current Visit: Yes Status: Acute Assessment and Plan: Subcutaneous heparin - Time Spent with Patient Total time spent is greater than 50% in coordination of care (as documented) at patient's floor/unit and/or counseling patient: Internal Medicine: Result - Labs CBC & Chem 7: 10/27/18 05:42 10/27/18 05:42 - ABG Interpretation ABG results: ABG ABG pH 7.43 pH Units (7.32-7.45) 10/21/18 03:49 ABG pCO2 51 mmHg (35-45) H 10/21/18 03:49 ABG pO2 82 mmHg (85-104) L 10/21/18 03:49 ABG O2 Saturation 96 % (95-98) 10/21/18 03:49 PT/INR, D-dimer PT 10.7 Seconds (9.4-12.1) 10/22/18 09:03 - Impressions Impressions Chest X-Ray 10/25/18 11:41 IMPRESSION: Stable chest without pneumothorax. D/ /25/2018 14:31:17 Clifford Harris MD / earnold Interpreting Provider: Clifford Harris MD Chest X-Ray 10/26/18 06:00 IMPRESSION: Pleural effusions with bibasilar atelectasis or infiltrates, left greater than right. Left-sided chest tube in place with persistent left apical pneumothorax. D/ / 10/26/2018 09:25:45 Chandra Jha MD / farhat Interpreting Provider: Chandra Jha MD Chest CT 10/26/18 08:30 IMPRESSION: Improved aeration of the left lung, status post pleural drainage catheter insertion. Heterogeneous mass like consolidation persist in the left lung base. This could represent pneumonia, rounded atelectasis or possibly tumor. There is poor visualization of the lower left lower lobe airways. There is a small pneumothorax-pleural gas collection on the left with a small amount of pleural fluid remaining on the left. Underlying emphysema with no change in right basilar airspace disease. Small mediastinal nodes are seen, likely reactive D/ / Adriel Campbell MD / Adriel Campbell MD Interpreting Provider: Adriel Campbell MD Consult Discharge Plan - Plan Referrals: Nasima Pascual, DIRECTOR PROJECT MANAGEMENT [Primary Care Provider] - (2) Pneumothorax Qualifiers: Pneumothorax type: postprocedural Qualified Code(s): J95.811 - Postprocedural pneumothorax (3) Pneumonia Qualifiers: Pneumonia type: due to unspecified organism Laterality: left Lung location: lower lobe of lung Qualified Code(s): J18.1 - Lobar pneumonia, unspecified organism (5) Aortic stenosis Qualifiers: Cardiac valve disease etiology: etiology unspecified Qualified Code(s): I35.0 - Nonrheumatic aortic (valve) stenosis (7) Hypertension Qualifiers: Hypertension type: other secondary hypertension Qualified Code(s): I15.8 - Other secondary hypertension (8) Hyperlipidemia Qualifiers: Hyperlipidemia type: mixed hyperlipidemia Qualified Code(s): E78.2 - Mixed hyperlipidemia (9) Dementia Qualifiers: Dementia type: unspecified type Dementia behavioral disturbance: without behavioral disturbance Qualified Code(s): F03.90 - Unspecified dementia without behavioral disturbance
[2018-10-27 08:44] LABS: Basophils % 0.1 %; Eosinophils # 0.1 K/mcL (0.0-0.6); Eosinophils % 1.4 %; Hematocrit 43.8 % (35.3-44.9); Hemoglobin 13.4 g/dL (11.5-15.4); Immature Granulocytes % 0.5 % (0-4); Lymphocytes # 0.7 K/mcL (0.6-4.6); Mean Corpuscular HGB Conc 30.6 g/dL (31.6-35.5); Mean Corpuscular Volume 94.8 fL (83.0-100.0); Mean Platelet Volume 11.3 fL (9.4-12.4); Monocytes # 0.7 K/mcL (0.0-1.3); Monocytes % 7.3 %; Neutrophils # 8.4 K/mcL (1.6-8.9); Platelet Count 169 K/mcL (140-400); Red Blood Count 4.62 M/mcL (3.82-4.97); Red Cell Distribution Width 13.3 % (11.5-14.5); Segmented Neutrophils % 83.7 %
[2018-10-27 08:48] LABS: BUN/Creatinine Ratio 32 (6-26); Blood Urea Nitrogen 24 mg/dL (8-23); Carbon Dioxide 39 mEq/L (23-29); Chloride 95 mEq/L (98-107); Glucose 142 mg/dL (70-105); Magnesium 2.1 mg/dL (1.6-2.6); Osmolality,Calculated 296 (280-300); Phosphorous 3.8 mg/dL (2.7-4.5); Potassium 4.1 mEq/L (3.5-5.1); Sodium 140 mEq/L (136-145); eGFR For African Americans > 60 (> 60); eGFR For Non-African Americans > 60 (> 60)
--- NOTE | 2018-10-27 08:48 | Pulmonology Progress Note ---
<Evans Travis M - Last Filed: 10/27/18 09:17> Date of Encounter: 10/27/18 Objective PUL Vital signs: Last Vital Signs Temp 98.2 F 10/27/18 07:25 Pulse 90 10/27/18 07:25 Resp 15 10/27/18 07:25 BP 130/68 10/27/18 07:25 Pulse Ox 95 10/27/18 07:25 Results - Laboratory Findings CBC and BMP: 10/27/18 05:42 10/27/18 05:42 ABG ABG pH 7.43 pH Units (7.32-7.45) 10/21/18 03:49 ABG pCO2 51 mmHg (35-45) H 10/21/18 03:49 ABG pO2 82 mmHg (85-104) L 10/21/18 03:49 ABG O2 Saturation 96 % (95-98) 10/21/18 03:49 PT/INR, D-dimer PT 10.7 Seconds (9.4-12.1) 10/22/18 09:03 Abnormal lab findings: Abnormal lab results MCHC 30.6 g/dL (31.6-35.5) L 10/27/18 05:42 MPV 9.2 fL (9.4-12.4) L 10/22/18 06:06 Lymphocytes # 0.5 K/mcL (0.6-4.6) L 10/24/18 04:16 Nucleated RBCs/100 WBC 0.2 /100 WBC (0) H 10/24/18 04:16 APTT 37.1 Seconds (26.0-36.0) H 10/22/18 09:03 ABG pCO2 51 mmHg (35-45) H 10/21/18 03:49 ABG pO2 82 mmHg (85-104) L 10/21/18 03:49 ABG HCO3 34 mEq/L (21-27) H 10/21/18 03:49 ABG Total CO2 36 mEq/L (20-26) H 10/21/18 03:49 ABG Base Excess 9 mEq/L (-2 to 3) H 10/21/18 03:49 VBG pCO2 52 mmHg (41-51) H 10/20/18 17:17 VBG pO2 68 mmHg (25-50) H 10/20/18 17:17 VBG HCO3 33 mEq/L (21-27) H 10/20/18 17:17 Potassium 3.3 mEq/L (3.5-5.1) L 10/20/18 12:40 Chloride 95 mEq/L (98-107) L 10/27/18 05:42 Carbon Dioxide 39 mEq/L (23-29) H 10/27/18 05:42 BUN 24 mg/dL (8-23) H 10/27/18 05:42 BUN/Creatinine Ratio 32 (6-26) H 10/27/18 05:42 Glucose 142 mg/dL (70-105) H 10/27/18 05:42 Calculated Osmolality 301 (280-300) H 10/23/18 05:23 Serum Total Protein 6.3 g/dL (6.4-8.9) L 10/24/18 11:41 Albumin 3.4 g/dL (3.5-5.7) L 10/24/18 11:41 Cholesterol 224 mg/dL (< 200) H 10/22/18 06:06 Ur Specific Leslie 1.027 (1.010-1.025) H 10/20/18 16:46 Pleural Appearance Cloudy (Clear) A 10/24/18 09:45 Pleural RBC 0.012 M/mcL (0.000-0.002) H 10/24/18 09:45 Pleural Tot Nuc Cell 3197 TNC/mcL (0-1000) H 10/24/18 09:45 - Microbiology Findings Microbiology Findings: Microbiology, Last 48 Hours 10/24/18 09:45 Gram Stain - Final Pleural Fluid Body Fluid Culture - Preliminary 10/24/18 09:45 Acid Fast Stain - Final Pleural Fluid 10/20/18 12:59 Blood Culture - Final Peripheral Venipuncture No growth. Final report. 10/22/18 10:59 Body Fluid Culture - Final Pleural Fluid 10/20/18 12:40 Blood Culture - Final Peripheral Venipuncture No growth. Final report. 10/22/18 10:59 Anaerobic Culture - Preliminary Pleural Fluid At this time, no anaerobic growth is present. The culture will be finalized after 5 days of incubation. - Clinical Findings Intake & Output: Intake & Output 10/26/18 10/27/18 10/27/18 23:59 07:59 15:59 Intake Total 120 / 120 Output Total 15 / 565 350 / 350 Balance -15 -565 -350 / -230 120 / -230 Weight 66.2 kg Consult Discharge Plan - Plan Referrals: Nasima Pascual, BUSINESS REPORTER [Primary Care Provider] - - Attending Attestation I examined this patient and my medical decision-making was reviewed with the Resident Physician. I agree with the documented findings, disposition and treatment plan as described except to the extent set forth below. Patient seen and examined. Labs, radiology, chart personally reviewed. Agree with resident's history and physical, assessment, plan with following comments: LABOR/EXCAVATOR: Patient follows commands, Pulmonary: Acceptable oxygenation and ventilation and to have reviewed her chest x-ray with stable pneumothorax. There is no significant fluid drainage at this time and upon examination the left-sided chest tube was partially out and clinically needed to be pulled out. Explained this to the patient and suture was removed and then chest tube was removed successfully without immediate complication and patient tolerated procedure well. Stat chest x-ray ordered. <Chandu Husain - Last Filed: 10/27/18 13:45> Date of Encounter: 10/27/18 Time of Encounter: 10:00 Assessment and Plan (1) Acute on chronic respiratory failure with hypoxia and hypercapnia Current Visit: Yes Status: Acute Patient presented with acute hypoxic respiratory failure. She does have a remote history of significant tobacco abuse but denies any knowledge of COPD and does not follow with a tankman. CT chest did reveal evidence of centrilobular as well as paraseptal emphysematous changes consistent with diagnosis of COPD. Additionally, there was a moderate left sided pleural effusion revealed with possible left lower lobe consolidation noted. ABG revealed respiratory acidosis with metabolic alkalosis and normal pH. Diagnostic thoracentesis perfomred. Pleural fluid studies revealed an exudative effusion, predominantly neutrophilic, cytology negative for malignancy. Consistent with parapneumonic effusion. Patient continued to be dependant on supplemental O2. Therapeutic thoracentesis was performed 10/24/18 with minimal fluid return. Rpt CXR showed pneumothorax. Chest tube placed with rpt CXR showing resolution of pneumothorax and decreased size of pleural effusion. Chest tube was placed on wall suction over weekend. CT chest performed 10/26/18 revealed improved aeration of the lung, a heterogenous mass like consolidation redemonstrated in the left lung base, possibly representing pneumonia vs. atelectasis vs tumor. Plan: -Chest tube removed today, patient tolerated well, stat CXR ordered, small apical pneumothorax still present -Encouraged ambulation and incentive spirometry -Continue scheduled DuoNeb, patient will benefit from bronchodilator therapy on discharge -Continue supplemental O2 to maintain SpO2 greater than 88%, currently requiring 4L -Macrolide x5 days, Beta-Lactam x7 days -Urinary Antigens negative for strep pneumo/legionella -Procalcitonin negative -Blood and Pleural Cultures show NGTD (2) COPD exacerbation Current Visit: Yes Status: Acute Patient completed 5 days steroid burst Scheduled Duonebs q6hrs Supplemental O2, currently down to 4L Patient completed 5 days of Azithromycin (3) Pleural effusion Current Visit: Yes Status: Acute Plan as above Exudative effusion with predominantly neutrophilic but also lymphocytic involvement Consistent with parapneumonic effusion, cytology negative for malignant cells Chest placed 10/24 secondary to pneumothorax post therapeutic thoracentesis Chest tube removed this morning, stat CXR ordered, still has small apical pneumothorax Now able to visualize a heterogenous mass-like consolidation, possibly atelectasis vs PNA vs tumor, follow up outpatient (4) Pneumonia Current Visit: Yes Status: Acute Plan as above urinary antigens and procalcitonin negative Macrolide x5 days completed Continue Rocephin to complete 7day course Patient will need follow up outpatient with Pulmonology for possible consolidation vs atelectasis vs lung mass seen on CT Qualifiers: Pneumonia type: due to unspecified organism Laterality: left Lung location: lower lobe of lung Qualified Code(s): J18.1 - Lobar pneumonia, unspecified organism Subjective Principal diagnosis: Acute Respiratory Failure Interval history: Patient seen and examined this morning. Patient chest tube was still on wall suction this morning but was slightly dislodged and starting to come out. Chest tube was removed this morning without complications and a repeat stat chest x- ray was performed. Patient denies any complaints at this time. States her breathing status feels somewhat improved and she denies feeling short of breath, wheezing, or coughing. Denies Chest Pain. Objective PUL Vital signs: Last Vital Signs Temp 98.2 F 10/27/18 07:25 Pulse 90 10/27/18 07:25 Resp 15 10/27/18 07:25 BP 130/68 10/27/18 07:25 Pulse Ox 95 10/27/18 07:25 Gen.: Vitals noted. Patient comfortable. Nonlabored breathing Head: Atraumatic, normocephalic Eyes: Anicteric sclerae, EOMI ENT: Mucous membranes moist, oropharynx clear Neck: Trachea midline, no thyromegaly or lymphadenopathy CV: Regular rate and rhythm no murmurs, gallops, rubs Resp: Good respiratory effort, improved lung sounds in left lower lobe, no wheezing or rales noted Abdomen: Soft, nontender Extremities: No edema, cyanosis, clubbing Results - Laboratory Findings CBC and BMP: 10/27/18 05:42 10/27/18 05:42 ABG ABG pH 7.43 pH Units (7.32-7.45) 10/21/18 03:49 ABG pCO2 51 mmHg (35-45) H 10/21/18 03:49 ABG pO2 82 mmHg (85-104) L 10/21/18 03:49 ABG O2 Saturation 96 % (95-98) 10/21/18 03:49 PT/INR, D-dimer PT 10.7 Seconds (9.4-12.1) 10/22/18 09:03 Abnormal lab findings: Abnormal lab results MCHC 30.5 g/dL (31.6-35.5) L 10/26/18 06:56 MPV 9.2 fL (9.4-12.4) L 10/22/18 06:06 Lymphocytes # 0.5 K/mcL (0.6-4.6) L 10/24/18 04:16 Nucleated RBCs/100 WBC 0.2 /100 WBC (0) H 10/24/18 04:16 APTT 37.1 Seconds (26.0-36.0) H 10/22/18 09:03 ABG pCO2 51 mmHg (35-45) H 10/21/18 03:49 ABG pO2 82 mmHg (85-104) L 10/21/18 03:49 ABG HCO3 34 mEq/L (21-27) H 10/21/18 03:49 ABG Total CO2 36 mEq/L (20-26) H 10/21/18 03:49 ABG Base Excess 9 mEq/L (-2 to 3) H 10/21/18 03:49 VBG pCO2 52 mmHg (41-51) H 10/20/18 17:17 VBG pO2 68 mmHg (25-50) H 10/20/18 17:17 VBG HCO3 33 mEq/L (21-27) H 10/20/18 17:17 Potassium 3.3 mEq/L (3.5-5.1) L 10/20/18 12:40 Chloride 96 mEq/L (98-107) L 10/26/18 06:56 Carbon Dioxide 40 mEq/L (23-29) H* 10/26/18 06:56 BUN/Creatinine Ratio 30 (6-26) H 10/26/18 06:56 Glucose 106 mg/dL (70-105) H 10/26/18 06:56 Calculated Osmolality 301 (280-300) H 10/23/18 05:23 Serum Total Protein 6.3 g/dL (6.4-8.9) L 10/24/18 11:41 Albumin 3.4 g/dL (3.5-5.7) L 10/24/18 11:41 Cholesterol 224 mg/dL (< 200) H 10/22/18 06:06 Ur Specific Leslie 1.027 (1.010-1.025) H 10/20/18 16:46 Pleural Appearance Cloudy (Clear) A 10/24/18 09:45 Pleural RBC 0.012 M/mcL (0.000-0.002) H 10/24/18 09:45 Pleural Tot Nuc Cell 3197 TNC/mcL (0-1000) H 10/24/18 09:45 - Microbiology Findings Microbiology Findings: Microbiology, Last 48 Hours 10/24/18 09:45 Gram Stain - Final Pleural Fluid Body Fluid Culture - Preliminary 10/24/18 09:45 Acid Fast Stain - Final Pleural Fluid 10/20/18 12:59 Blood Culture - Final Peripheral Venipuncture No growth. Final report. 10/22/18 10:59 Body Fluid Culture - Final Pleural Fluid 10/20/18 12:40 Blood Culture - Final Peripheral Venipuncture No growth. Final report. 10/22/18 10:59 Anaerobic Culture - Preliminary Pleural Fluid At this time, no anaerobic growth is present. The culture will be finalized after 5 days of incubation. - Clinical Findings Intake & Output: Intake & Output 10/26/18 10/27/18 10/27/18 23:59 07:59 15:59 Output Total 350 / 350 Balance -15 / -565 -350 / -350 Weight 66.2 kg
[2018-10-27] MEDS: Budesonide/Formoterol 160/4.5 1 PUFF INH IH SCH ×2 (10:28→20:05)
[2018-10-27] MEDS: Rivastigmine Tartrate (oral) 1.5 MG CAPSULE PO SCH ×2 (10:33→19:56)
[2018-10-27] MEDS: amLODIPine 5 MG TABLET PO SCH (10:33)
[2018-10-27] MEDS: cefTRIAXone 2,000 MG in Water for inj. (sterile) 20 ML IVP SCH (10:33)
[2018-10-27] MEDS: traZODone 50 MG TABLET PO SCH (19:56)
[2018-10-27] MEDS: *HR* OxyCODONE/APAP 5/325 TABLET PO PRN (19:56)
[2018-10-28 02:44] LABS: Basophils % 0.1 %; Eosinophils # 0.3 K/mcL (0.0-0.6); Eosinophils % 3.6 %; Hematocrit 42.7 % (35.3-44.9); Hemoglobin 13.1 g/dL (11.5-15.4); Immature Granulocytes % 0.5 % (0-4); Lymphocytes # 0.9 K/mcL (0.6-4.6); Lymphocytes % 9.9 %; Mean Corpuscular HGB Conc 30.7 g/dL (31.6-35.5); Mean Corpuscular Hemoglobin 29.1 pg (28.0-33.3); Mean Corpuscular Volume 94.9 fL (83.0-100.0); Mean Platelet Volume 9.7 fL (9.4-12.4); Monocytes # 0.7 K/mcL (0.0-1.3); Monocytes % 8.1 %; Neutrophils # 6.8 K/mcL (1.6-8.9); Platelet Count 163 K/mcL (140-400); Red Cell Distribution Width 13.4 % (11.5-14.5); Segmented Neutrophils % 77.8 %; White Blood Count 8.8 K/mcL (4.3-11.1)
[2018-10-28 03:04] LABS: BUN/Creatinine Ratio 38 (6-26); Blood Urea Nitrogen 32 mg/dL (8-23); Carbon Dioxide 36 mEq/L (23-29); Chloride 95 mEq/L (98-107); Glucose 133 mg/dL (70-105); Magnesium 2.1 mg/dL (1.6-2.6); Osmolality,Calculated 297 (280-300); Phosphorous 5.5 mg/dL (2.7-4.5); Potassium 4.6 mEq/L (3.5-5.1); Sodium 139 mEq/L (136-145); eGFR For African Americans > 60 (> 60); eGFR For Non-African Americans > 60 (> 60)
[2018-10-28] MEDS: Ipratropium/Albuterol Neb 3 ML IH SCH ×2 (04:02→10:32)
[2018-10-28] MEDS: *HR* Heparin 5,000 UNIT/ML VIAL SQ SCH (06:32)
[2018-10-28] MEDS: amLODIPine 5 MG TABLET PO SCH (08:33)
[2018-10-28] MEDS: Rivastigmine Tartrate (oral) 1.5 MG CAPSULE PO SCH (08:33)
[2018-10-28] MEDS: cefTRIAXone 2,000 MG in Water for inj. (sterile) 20 ML IVP SCH (08:34)
--- NOTE | 2018-10-28 09:36 | Pulmonology Progress Note ---
<Chandu Husain M - Last Filed: 10/28/18 13:32> Date of Encounter: 10/28/18 Time of Encounter: 09:00 Assessment and Plan (1) Acute on chronic respiratory failure with hypoxia and hypercapnia Status: Acute Patient presented with acute hypoxic respiratory failure. She does have a remote history of significant tobacco abuse but denies any knowledge of COPD and does n ot follow with a special education aide. CT chest did reveal evidence of centrilobular as well as paraseptal emphysematous changes consistent with diagnosis of COPD. Additionally, there was a moderate left sided pleural effusion revealed with possible left lower lobe consolidation noted. ABG revealed respiratory acidosis with metabolic alkalosis and normal pH. Diagnostic thoracentesis perfomred. Pleural fluid studies revealed an exudative effusion, predominantly neutrophilic, cytology negative for malignancy. Consistent with parapneumonic effusion. Patient continued to be dependant on supplemental O2. Therapeutic thoracentesis was performed 10/24/18 with minimal fluid return. Rpt CXR showed pneumothorax. Chest tube placed with rpt CXR showing resolution of pneumothorax and decreased size of pleural effusion. Chest tube was placed on wall suction over weekend. CT chest performed 10/26/18 revealed improved aeration of the lung, a heterogenous mass like consolidation redemonstrated in the left lung base, possibly representing pneumonia vs. atelectasis vs tumor. Plan: -Will sign off a this time. Patient stable for transfer to SNF. Will need rpt CT chest in one month with outpatient follow up in the pulmonology clinic. -Chest tube removed yesterday, patient tolerated well, rpt. CXR shows stable small apical pneumothorax -Encouraged ambulation and incentive spirometry -Continue scheduled DuoNeb, patient will benefit from bronchodilator therapy on discharge -Continue supplemental O2 to maintain SpO2 greater than 88%, currently requiring 4L -Patient completed 5-days macrolide and 7-days Beta-Lactam -Urinary Antigens negative for strep pneumo/legionella -Procalcitonin negative -Blood and Pleural Cultures show NGTD (2) COPD exacerbation Status: Acute Patient completed 5 days steroid burst Scheduled Duonebs q6hrs Supplemental O2, currently down to 4L Patient completed 5 days of Azithromycin (3) Pleural effusion Status: Acute Plan as above Exudative effusion with predominantly neutrophilic but also lymphocytic involvement Consistent with parapneumonic effusion, cytology negative for malignant cells Chest placed 8/30 secondary to pneumothorax post therapeutic thoracentesis Chest tube removed yesterday with rpt. CXR today demonstrating stable small apical pneumothorax Now able to visualize a heterogenous mass-like consolidation, possibly atelectasis vs PNA vs tumor, follow up outpatient (4) Pneumonia Status: Acute Plan as above urinary antigens and procalcitonin negative Macrolide x5 days completed Rocephin x7 days completes Patient will need follow up outpatient with Pulmonology for possible consolidation vs atelectasis vs lung mass seen on CT Qualifiers: Pneumonia type: due to unspecified organism Laterality: left Lung location: lower lobe of lung Qualified Code(s): J18.1 - Lobar pneumonia, unspecified organism Subjective Principal diagnosis: Acute Respiratory Failure Interval history: Patient seen and examined this morning. Chest tube pulled yesterday. Patient without complaints this morning. States her breathing status feels somewhat improved and she denies feeling short of breath, wheezing, or coughing. Denies Chest Pain. Patient reports she is using her incentive spirometry only occasionally. Has been ambulating with assistance. Rpt. CXR this morning redemonstrates a small stable apical left sided pneumothorax. Objective PUL Vital signs: Last Vital Signs Temp 98.2 F 10/28/18 07:50 Pulse 100 10/28/18 07:50 Resp 16 10/28/18 07:50 BP 124/59 10/28/18 07:50 Pulse Ox 93 10/28/18 07:50 Gen.: Vitals noted. Patient comfortable. Nonlabored breathing Head: Atraumatic, normocephalic Eyes: Anicteric sclerae, EOMI ENT: Mucous membranes moist, oropharynx clear Neck: Trachea midline, no thyromegaly or lymphadenopathy CV: Regular rate and rhythm, grade 2 systolic murmur, no gallops or rubs Resp: Good respiratory effort, improved lung sounds in left lower lobe, no wheezing or rales noted Abdomen: Soft, nontender Extremities: No edema, cyanosis, clubbing Results - Laboratory Findings CBC and BMP: 10/28/18 02:29 10/28/18 02:29 ABG ABG pH 7.43 pH Units (7.32-7.45) 10/21/18 03:49 ABG pCO2 51 mmHg (35-45) H 10/21/18 03:49 ABG pO2 82 mmHg (85-104) L 10/21/18 03:49 ABG O2 Saturation 96 % (95-98) 10/21/18 03:49 PT/INR, D-dimer PT 10.7 Seconds (9.4-12.1) 10/22/18 09:03 Abnormal lab findings: Abnormal lab results MCHC 30.7 g/dL (31.6-35.5) L 10/28/18 02:29 MPV 9.2 fL (9.4-12.4) L 10/22/18 06:06 Lymphocytes # 0.5 K/mcL (0.6-4.6) L 10/24/18 04:16 Nucleated RBCs/100 WBC 0.2 /100 WBC (0) H 10/24/18 04:16 APTT 37.1 Seconds (26.0-36.0) H 10/22/18 09:03 ABG pCO2 51 mmHg (35-45) H 10/21/18 03:49 ABG pO2 82 mmHg (85-104) L 10/21/18 03:49 ABG HCO3 34 mEq/L (21-27) H 10/21/18 03:49 ABG Total CO2 36 mEq/L (20-26) H 10/21/18 03:49 ABG Base Excess 9 mEq/L (-2 to 3) H 10/21/18 03:49 VBG pCO2 52 mmHg (41-51) H 10/20/18 17:17 VBG pO2 68 mmHg (25-50) H 10/20/18 17:17 VBG HCO3 33 mEq/L (21-27) H 10/20/18 17:17 Potassium 3.3 mEq/L (3.5-5.1) L 10/20/18 12:40 Chloride 95 mEq/L (98-107) L 10/28/18 02:29 Carbon Dioxide 36 mEq/L (23-29) H 10/28/18 02:29 BUN 32 mg/dL (8-23) H 10/28/18 02:29 BUN/Creatinine Ratio 38 (6-26) H 10/28/18 02:29 Glucose 133 mg/dL (70-105) H 10/28/18 02:29 Calculated Osmolality 301 (280-300) H 10/23/18 05:23 Phosphorus 5.5 mg/dL (2.7-4.5) H 10/28/18 02:29 Serum Total Protein 6.3 g/dL (6.4-8.9) L 10/24/18 11:41 Albumin 3.4 g/dL (3.5-5.7) L 10/24/18 11:41 Cholesterol 224 mg/dL (< 200) H 10/22/18 06:06 Ur Specific [place] 1.027 (1.010-1.025) H 10/20/18 16:46 Pleural Appearance Cloudy (Clear) A 10/24/18 09:45 Pleural RBC 0.012 M/mcL (0.000-0.002) H 10/24/18 09:45 Pleural Tot Nuc Cell 3197 TNC/mcL (0-1000) H 10/24/18 09:45 - Microbiology Findings Microbiology Findings: Microbiology, Last 48 Hours 10/24/18 09:45 Anaerobic Culture - Preliminary Pleural Fluid At this time, no anaerobic growth is present. The culture will be finalized after 5 days of incubation. 10/22/18 10:59 Anaerobic Culture - Final Pleural Fluid No anaerobes were recovered. 10/24/18 09:45 Gram Stain - Final Pleural Fluid Body Fluid Culture - Final - Clinical Findings Intake & Output: Intake & Output 10/27/18 10/28/18 10/28/18 23:59 07:59 15:59 Intake Total 100 / 240 0 / 0 Output Total 0 / 350 150 / 150 Balance 100 / -110 -150 / -150 Weight 66.1 kg Consult Discharge Plan - Plan Instructions: Pleural Effusion (DC), Pneumonia (DC) Referrals: Evans Travis MD [Partnered Physician] - (Web Requested 10/28/2018) Nasima Pascual CNP [Primary Care Provider] - ([facility]) Prescriptions: Budesonide/Formoterol 160/4.5 [Symbicort 160/4.5] 2 puff IH BIDR #30 inh <Evans Travis - Last Filed: 10/28/18 16:46> Date of Encounter: 10/28/18 Objective PUL Vital signs: Last Vital Signs Temp 98.4 F 10/28/18 11:30 Pulse 93 10/28/18 11:30 Resp 20 10/28/18 11:30 BP 118/68 10/28/18 11:30 Pulse Ox 91 10/28/18 11:30 Results - Laboratory Findings CBC and BMP: 10/28/18 02:29 10/28/18 02:29 ABG ABG pH 7.43 pH Units (7.32-7.45) 10/21/18 03:49 ABG pCO2 51 mmHg (35-45) H 10/21/18 03:49 ABG pO2 82 mmHg (85-104) L 10/21/18 03:49 ABG O2 Saturation 96 % (95-98) 10/21/18 03:49 PT/INR, D-dimer PT 10.7 Seconds (9.4-12.1) 10/22/18 09:03 Abnormal lab findings: Abnormal lab results MCHC 30.7 g/dL (31.6-35.5) L 10/28/18 02:29 MPV 9.2 fL (9.4-12.4) L 10/22/18 06:06 Lymphocytes # 0.5 K/mcL (0.6-4.6) L 10/24/18 04:16 Nucleated RBCs/100 WBC 0.2 /100 WBC (0) H 10/24/18 04:16 APTT 37.1 Seconds (26.0-36.0) H 10/22/18 09:03 ABG pCO2 51 mmHg (35-45) H 10/21/18 03:49 ABG pO2 82 mmHg (85-104) L 10/21/18 03:49 ABG HCO3 34 mEq/L (21-27) H 10/21/18 03:49 ABG Total CO2 36 mEq/L (20-26) H 10/21/18 03:49 ABG Base Excess 9 mEq/L (-2 to 3) H 10/21/18 03:49 VBG pCO2 52 mmHg (41-51) H 10/20/18 17:17 VBG pO2 68 mmHg (25-50) H 10/20/18 17:17 VBG HCO3 33 mEq/L (21-27) H 10/20/18 17:17 Potassium 3.3 mEq/L (3.5-5.1) L 10/20/18 12:40 Chloride 95 mEq/L (98-107) L 10/28/18 02:29 Carbon Dioxide 36 mEq/L (23-29) H 10/28/18 02:29 BUN 32 mg/dL (8-23) H 10/28/18 02:29 BUN/Creatinine Ratio 38 (6-26) H 10/28/18 02:29 Glucose 133 mg/dL (70-105) H 10/28/18 02:29 Calculated Osmolality 301 (280-300) H 10/23/18 05:23 Phosphorus 5.5 mg/dL (2.7-4.5) H 10/28/18 02:29 Serum Total Protein 6.3 g/dL (6.4-8.9) L 10/24/18 11:41 Albumin 3.4 g/dL (3.5-5.7) L 10/24/18 11:41 Cholesterol 224 mg/dL (< 200) H 10/22/18 06:06 Ur Specific [place] 1.027 (1.010-1.025) H 10/20/18 16:46 Pleural Appearance Cloudy (Clear) A 10/24/18 09:45 Pleural RBC 0.012 M/mcL (0.000-0.002) H 10/24/18 09:45 Pleural Tot Nuc Cell 3197 TNC/mcL (0-1000) H 10/24/18 09:45 - Microbiology Findings Microbiology Findings: Microbiology, Last 48 Hours 10/24/18 09:45 Anaerobic Culture - Preliminary Pleural Fluid At this time, no anaerobic growth is present. The culture will be finalized after 5 days of incubation. 10/22/18 10:59 Anaerobic Culture - Final Pleural Fluid No anaerobes were recovered. 10/24/18 09:45 Gram Stain - Final Pleural Fluid Body Fluid Culture - Final - Clinical Findings Intake & Output: Intake & Output 10/28/18 10/28/18 10/28/18 07:59 15:59 23:59 Intake Total 0 / 0 Output Total 150 / 150 Balance -150 / -150 Weight 66.1 kg - Attending Attestation I examined this patient and my medical decision-making was reviewed with the Resident Physician. I agree with the documented findings, disposition and treatment plan as described except to the extent set forth below. Patient seen and examined. Labs, radiology, chart personally reviewed. Agree with resident's history and physical, assessment, plan with following comments: [employer]: Patient follows commands, Pulmonary: Acceptable oxygenation and ventilation I have discussed with the primary team regarding discharge recommendations. 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 Patient to be treated for pneumonia and then have her CT in about one month and then follow-up as outpatient. If still have this masslike lesion then will need biopsy at that time and she may even need Pleurx pleural catheter. Thank you for consultation
[2018-10-28] MEDS: Budesonide/Formoterol 160/4.5 1 PUFF INH IH SCH (10:32)
[2018-10-28 11:33] VITALS: BP 118/68
--- NOTE | 2018-10-28 12:32 | Discharge Summary ---
Date of Encounter: 10/28/18 Time of Encounter: 12:31 - Discharge Diagnosis (1) Acute on chronic respiratory failure with hypoxia and hypercapnia Priority: Primary Status: Acute Assessment and Plan: 78 year old female with a past medical history of recurrent pneumonias, hypertension, hyperlipidemia, mild to moderate dementia, status post right radical mastectomy for breast cancer (remote history). She presented with progressively worsening shortness of breath of about 3 weeks' duration. Per patient's daughter who is a home health nurse, she was informed by the skilled nursing about 2 weeks ago that her mother has been observed to be more short of breath than usual and chest x-rays performed showed a pneumonia with some effusion. Patient was started on Levaquin and steroids but has progressively worsened and desaturated into the 80s today which prompted skilled nursing staff to transfer her for further management. Patient denies chest pain, palpitations, fever and chills. She admits occasional productive cough. She describes as thick and yellow. She was assessed with shortness of breath and acute hypoxic hypercapnic respiratory failure secondary to COPD exacerbation and new pleural effusion possibly 2/2 to pneumonia. She was noted to be very hypoxic and required high flow oxygen initially. She was started on duonebs, ceftriaxone and azithromycin and steroids. She was seen by pulmonary and had a thoracentesis with removal of 1L of exudative fluid on 10/23 and repeat thoracentesis on 10/24 with withdrawal of 250cc of fluid. Procedure was complicated by pneumothorax on 10/24 and chest tube was placed. Chest tube was removed succesfully on 10/27. Chest xray post chest tube removal showed small left pneumothorax. Respiratory status has improved and patient is currently saturating above 93% on 4L. Pulmonary want a f/u CT in a month and will see her as an outpatient. She was discharged in a stable condition. 35 minutes was spent discharging this patient (2) Pneumothorax Priority: Primary Status: Acute Qualifiers: Pneumothorax type: postprocedural Qualified Code(s): J95.811 - Postprocedural pneumothorax (3) Pneumonia Priority: Primary Status: Acute Qualifiers: Pneumonia type: due to unspecified organism Laterality: left Lung location: lower lobe of lung Qualified Code(s): J18.1 - Lobar pneumonia, unspecified organism (4) Pleural effusion Priority: Primary Status: Acute (5) Aortic stenosis Priority: Primary Status: Acute Qualifiers: Cardiac valve disease etiology: etiology unspecified Qualified Code(s): I35.0 - Nonrheumatic aortic (valve) stenosis (6) COPD exacerbation Priority: Primary Status: Acute (7) Hypertension Priority: Primary Status: Chronic Qualifiers: Hypertension type: other secondary hypertension Qualified Code(s): I15.8 - Other secondary hypertension (8) Hyperlipidemia Priority: Primary Status: Chronic Qualifiers: Hyperlipidemia type: mixed hyperlipidemia Qualified Code(s): E78.2 - Mixed hyperlipidemia (9) Dementia Priority: Primary Status: Chronic Qualifiers: Dementia type: unspecified type Dementia behavioral disturbance: without behavioral disturbance Qualified Code(s): F03.90 - Unspecified dementia without behavioral disturbance (10) Hypokalemia Priority: Primary Status: Acute (11) DVT prophylaxis Priority: Primary Status: Acute Hospital course: Ms. Shannon is a 78 year old female - Time Spent with Patient Total time spent providing and/or coordinating discharge services: - Discharge Medications Prescriptions: New Budesonide/Formoterol 160/4.5 [Symbicort 160/4.5] 2 puff IH BIDR #30 inh Continued Memantine [Namenda] 5 mg PO HS Acetaminophen [Tylenol] 650 mg PO Q4H PRN PRN Reason: Mild To Moderate Pain Amlodipine Besylate 10 mg PO DAILY Atorvastatin [Lipitor] 40 mg PO HS Calcium Carbonate [Calcium] 1,200 mg PO DAILY Docusate [Colace] 200 mg PO HS PRN PRN Reason: Constipation Ipratropium/Albuterol Neb [Duoneb] 3 ml IH Q4HR PRN PRN Reason: Shortness Of Breath MOM Conc [MILK OF MAGNESIA conc] 30 - 60 ml PO DAILY PRN PRN Reason: Constipation Polyethylene Glycol 3350 [MiraLAX] 17 gm PO DAILY PRN PRN Reason: Constipation Rivastigmine Tartrate (oral) [Exelon] 6 mg PO BID Sertraline [Zoloft] 25 mg PO DAILY traZODone [TraZODone] 50 mg PO HS Home Medications: Memantine [Namenda] 5 mg PO HS 06/01/17 [History] Acetaminophen [Tylenol] 650 mg PO Q4H PRN 10/21/18 [History] Amlodipine Besylate 10 mg PO DAILY 10/21/18 [History] Atorvastatin [Lipitor] 40 mg PO HS 10/21/18 [History] Calcium Carbonate [Calcium] 1,200 mg PO DAILY 10/21/18 [History] Docusate [Colace] 200 mg PO HS PRN 10/21/18 [History] Ipratropium/Albuterol Neb [Duoneb] 3 ml IH Q4HR PRN 10/21/18 [History] MOM Conc [MILK OF MAGNESIA conc] 30 - 60 ml PO DAILY PRN 10/21/18 [History] Polyethylene Glycol 3350 [MiraLAX] 17 gm PO DAILY PRN 10/21/18 [History] Rivastigmine Tartrate (oral) [Exelon] 6 mg PO BID 10/21/18 [History] Sertraline [Zoloft] 25 mg PO DAILY 10/21/18 [History] traZODone [TraZODone] 50 mg PO HS 10/21/18 [History] Budesonide/Formoterol 160/4.5 [Symbicort 160/4.5] 2 puff IH BIDR #30 inh 10/28/18 [Rx] Allergies/Adverse Reactions: Allergy/AdvReac Type Severity Reaction Status Date / Time No Known Allergies Allergy Verified 10/21/18 07:47 Date of admission: 10/20/18 17:02 Primary care physician: Nasima Pascual CNP Consults: 10/20/18 14:27 Consult to Pulmonology [CONS] Stat Consulting Provider: [facility] Reason for Consult: pulmonary effusion Call Completed: Yes 10/21/18 07:29 Consult to Nurse Navigator [CONS] Routine Comment: pn 10/21/18 10:29 Consult to Neuropsychologist [CONS] Routine Reason for SW Consult: pt to return to [facility] 10/27/18 11:09 Consult to Occupational Therapy [CONS] Routine Comment: Evaluate, develop and implement POC Reason for Consult: weakness Does patient have active BEDREST order?: No Is patient medically & hemodynamically stable?: Yes Patient assessed for mobility or mobilized this visit?: No Consult to Physical Therapy [CONS] Routine Comment: Evaluate, develop and implement POC Reason for Consult: weakness Does patient have active BEDREST order?: No Is patient medically & hemodynamically stable?: Yes Patient assessed for mobility or mobilized this visit?: No - Constitutional Vitals: Temp Pulse Resp BP Pulse Ox 98.4 F 93 20 118/68 91 10/28/18 11:30 10/28/18 11:30 10/28/18 11:30 10/28/18 11:30 10/28/18 11:30 Exam: GENERAL: Mild respiratory distress on high flow O2 via oxy mask. Alert and Oriented 2 (baseline) HEENT: EOMI, PERRLA MOUTH: Moist oral mucosa NECK:No JVD, No lymph nodes. CHEST AND LUNGS: Bronchial breath sounds in left middle and lower zones. No wheezing HEART: S1 and S2 normal, no murmurs ABDOMEN: Soft, nontender, no organomegaly SKIN: Normal color, no rashes, no lesions EXTREMITIES: No deformity, no edema, no tenderness, no joint swelling or clubbing NEUROLOGICAL: Oriented to place and person but not to time. Normal motor and sensory exam. PSYCHE: Pleasant - Patient Status Disposition: Transfer SNF Condition: Good - Ambulatory Orders Ambulatory Orders: CT chest wo con [CT] Time Frame: 1 Month, Facility: [facility], Location: Radiology - Discharge Instructions Instructions: Pleural Effusion (DC), Pneumonia (DC) Follow Up With: Evans Travis MD [Partnered Physician] - (Web Requested 10/28/2018) Nasima Pascual CNP [Primary Care Provider] - (ECF) Forms: ED Satisfaction Letter
--- NOTE | 2018-10-28 12:33 | Physician Discharge Referral ---
- Diagnosis (1) Acute on chronic respiratory failure with hypoxia and hypercapnia Priority: Primary Status: Acute (2) Pneumothorax Priority: Primary Status: Acute (3) Pneumonia Priority: Primary Status: Acute (4) Pleural effusion Priority: Primary Status: Acute (5) Aortic stenosis Priority: Primary Status: Acute (6) COPD exacerbation Priority: Primary Status: Acute (7) Hypertension Priority: Primary Status: Chronic (8) Hyperlipidemia Priority: Primary Status: Chronic (9) Dementia Priority: Primary Status: Chronic (10) Hypokalemia Priority: Primary Status: Acute (11) DVT prophylaxis Priority: Primary Status: Acute - Transfer Medications Prescriptions: Budesonide/Formoterol 160/4.5 [Symbicort 160/4.5] 2 puff IH BIDR #30 inh Home Medications: Memantine [Namenda] 5 mg PO HS 06/01/17 [History] Acetaminophen [Tylenol] 650 mg PO Q4H PRN 10/21/18 [History] Amlodipine Besylate 10 mg PO DAILY 10/21/18 [History] Atorvastatin [Lipitor] 40 mg PO HS 10/21/18 [History] Calcium Carbonate [Calcium] 1,200 mg PO DAILY 10/21/18 [History] Docusate [Colace] 200 mg PO HS PRN 10/21/18 [History] Ipratropium/Albuterol Neb [Duoneb] 3 ml IH Q4HR PRN 10/21/18 [History] MOM Conc [MILK OF MAGNESIA conc] 30 - 60 ml PO DAILY PRN 10/21/18 [History] Polyethylene Glycol 3350 [MiraLAX] 17 gm PO DAILY PRN 10/21/18 [History] Rivastigmine Tartrate (oral) [Exelon] 6 mg PO BID 10/21/18 [History] Sertraline [Zoloft] 25 mg PO DAILY 10/21/18 [History] traZODone [TraZODone] 50 mg PO HS 10/21/18 [History] Budesonide/Formoterol 160/4.5 [Symbicort 160/4.5] 2 puff IH BIDR #30 inh 10/28/18 [Rx] Allergies/Adverse Reactions: Allergy/AdvReac Type Severity Reaction Status Date / Time No Known Allergies Allergy Verified 10/21/18 07:47 - Respiratory Orders Smoking Cessation: Smoking cessation has been advised. For more information, call the [place] Tobacco Quit Line at 0-701-UMRO-NOW. - Mobility Orders Ambulate - Rehabiliation Orders Rehab Orders: Evaluation for Physical Therapy, Evaluation for Occupational Therapy - Diet Orders Cardiac CERTIFICATION: I certify that the transfer of the above named patient to an Extended Care Facility is necessary for the continuing treatment of the diagnosis listed. The above information is true and accurate reflection of patient's current condition. Confidential - Redisclosure prohibited without a patient's written consent.
== END 2018-10-28 13:42 | DRG 193 ==
LOC: 2ANU 11:50 → EMEROOARM 11:50 → SUATTDRO 16:10 → 2ANU 17:53
PROVIDERS: ADMIT Internal Medicine Nephrology; ATTEND Student in an Organized Health Care Education/Training Program

== ENCOUNTER 2018-11-21 20:57 | Inpatient (IN) ==
[2018-11-21] MEDS ORDERED: Ipratropium/Albuterol Neb 3 ML IH ONE (21:18)
[2018-11-21] MEDS ORDERED: Piperacillin/Tazobactam 3.375 GM in Water for inj. (sterile) 20 ML IVP ONE (21:18)
[2018-11-21] MEDS ORDERED: methylPREDNISolone 125 MG/2 ML VIAL IVP ONE (21:18)
[2018-11-21 21:30] LABS: ABG Base Excess 10 mEq/L (-2 to 3); ABG HCO3 38 mEq/L (21-27); ABG Oxygen Saturation 90 % (95-98); ABG PCO2 68 mmHg (35-45); ABG PH 7.36 pH Units (7.32-7.45); ABG PO2 63 mmHg (85-104); ABG TCO2 40 mEq/L (20-26)
[2018-11-21 21:44] LABS: Eosinophils # 0.1 K/mcL (0.0-0.6); Eosinophils % 1.6 %; Hematocrit 38.6 % (35.3-44.9); Hemoglobin 11.9 g/dL (11.5-15.4); Immature Granulocytes % 0.4 % (0-4); Lymphocytes # 0.8 K/mcL (0.6-4.6); Mean Corpuscular HGB Conc 30.8 g/dL (31.6-35.5); Mean Corpuscular Volume 93.9 fL (83.0-100.0); Mean Platelet Volume 9.5 fL (9.4-12.4); Monocytes # 0.6 K/mcL (0.0-1.3); Monocytes % 9.8 %; Neutrophils # 4.2 K/mcL (1.6-8.9); Platelet Count 201 K/mcL (140-400); Red Blood Count 4.11 M/mcL (3.82-4.97); Red Cell Distribution Width 14.3 % (11.5-14.5); Segmented Neutrophils % 74.2 %; White Blood Count 5.7 K/mcL (4.3-11.1)
[2018-11-21 22:06] LABS: Alanine Aminotransferase 14 Units/L (7-52); Albumin 3.1 g/dL (3.5-5.7); Albumin/Globulin Ratio 1.1 (1.1-2.2); Alkaline Phosphatase 96 Units/L (34-104); Aspartate Amino Transferase 12 Units/L (13-39); Bilirubin,Direct 0.1 mg/dL (0.0-0.2); Bilirubin,Indirect 0.9 mg/dL (0.0-1.2); Globulin 2.7 g/dL (2.4-3.5); Magnesium 1.9 mg/dL (1.6-2.6); Total Protein 5.8 g/dL (6.4-8.9); Troponin I 0.03 ng/mL (< 0.04)
[2018-11-21 22:42] LABS: BUN/Creatinine Ratio 25 (6-26); Blood Urea Nitrogen 18 mg/dL (8-23); Calcium 8.4 mg/dL (8.6-10.3); Carbon Dioxide 33 mEq/L (23-29); Chloride 102 mEq/L (98-107); Glucose 105 mg/dL (70-105); Osmolality,Calculated 292 (280-300); Potassium 3.5 mEq/L (3.5-5.1); Sodium 140 mEq/L (136-145); eGFR For African Americans > 60 (> 60); eGFR For Non-African Americans > 60 (> 60)
[2018-11-21] MEDS ORDERED: MOM Conc 10 ML UD.LIQ PO PRN ×2 (23:00→23:45)
[2018-11-21] MEDS ORDERED: Mag Hydrox/Al Hydrox/Simeth 30 ML UDC PO PRN (23:00)
[2018-11-21] MEDS: Ipratropium/Albuterol Neb 3 ML IH SCH (23:34)
[2018-11-21] MEDS ORDERED: Isovue-370 500 ML BOTTLE IVP ONE (23:59)
[2018-11-22] MEDS: Ipratropium/Albuterol Neb 3 ML IH SCH ×6 (03:43→23:24)
[2018-11-22 04:14] LABS: ABG Base Excess 5 mEq/L (-2 to 3); ABG HCO3 36 mEq/L (21-27); ABG Oxygen Saturation 94 % (95-98); ABG PCO2 81 mmHg (35-45); ABG PH 7.25 pH Units (7.32-7.45); ABG PO2 89 mmHg (85-104); ABG TCO2 38 mEq/L (20-26)
[2018-11-22 05:36] LABS: ABG Base Excess 7 mEq/L (-2 to 3); ABG HCO3 35 mEq/L (21-27); ABG Oxygen Saturation 94 % (95-98); ABG PCO2 67 mmHg (35-45); ABG PH 7.32 pH Units (7.32-7.45); ABG PO2 81 mmHg (85-104); ABG TCO2 37 mEq/L (20-26)
[2018-11-22] MEDS: *HR* Heparin 5,000 UNIT/ML VIAL SQ SCH ×2 (06:23→16:55)
[2018-11-22] MEDS: Furosemide 40 MG/4 ML VIAL IVP SCH ×2 (08:25→19:54)
[2018-11-22] MEDS: amLODIPine 5 MG TABLET PO SCH (08:25)
[2018-11-22] MEDS: Rivastigmine Tartrate (oral) 1.5 MG CAPSULE PO SCH ×2 (08:25→19:55)
[2018-11-22] MEDS: MethylPREDNISolone 40 MG/ML VIAL IVP SCH (08:25)
[2018-11-22] MEDS: Acetaminophen 325 MG TABLET PO PRN ×2 (08:47→16:54)
[2018-11-22] MEDS ORDERED: Furosemide 20 MG TABLET PO SCH (09:00)
[2018-11-22 09:40] LABS: Adenovirus Not Detected (Not Detect); Bordetella Pertussis Not Detected (Not Detect); Chlamydophila pneumoniae Not Detected (Not Detect); Coronavirus 229E Not Detected (Not Detect); Coronavirus HKU1 Not Detected (Not Detect); Coronavirus NL63 Not Detected (Not Detect); Coronavirus OC43 Not Detected (Not Detect); Human Metapneumovirus Not Detected (Not Detect); Human Rhinovirus/Enterovirus Not Detected (Not Detect); Influenza A Subtype 2009 H1 Not Detected (Not Detect); Influenza A Untypeable Not Detected (Not Detect); Influenza B Not Detected (Not Detect); Mycoplasma pneumoniae Not Detected (Not Detect); Parainfluenza Virus 1 Not Detected (Not Detect); Parainfluenza Virus 2 Not Detected (Not Detect); Parainfluenza Virus 3 Not Detected (Not Detect); Parainfluenza Virus 4 Not Detected (Not Detect); Respiratory Syncytial Virus Not Detected (Not Detect)
[2018-11-22 10:53] LABS: Bilirubin,Urine Negative (Negative); Blood,Urine Negative (Negative); Clarity,Urine Turbid (Clear); Color,Urine Yellow (Yellow); Glucose,Urine (UA) Normal (Normal); Ketones,Urine Negative (Negative); Leukocyte Esterase,Urine Small (Negative); Nitrite,Urine Negative (Negative); Protein,Urine Negative (Neg-Trace); Specific Gravity,Urine > 1.030 (1.010-1.025); Urobilinogen,Urine Normal (Normal)
[2018-11-22 11:12] LABS: Squamous Epithelial Cell,Urine Few per lpf (None-Few)
[2018-11-22 11:14] LABS: RBC,Urine 0-3 per hpf (0-3)
[2018-11-22 11:15] LABS: Bacteria,Urine Few per hpf (None-Few); Yeast,Urine Moderate per hpf (None Seen)
[2018-11-22] MEDS: Piperacillin/Tazobactam 3.375 GM in 0.9 % Sodium Chloride Mini Bag 100 ML IVPB SCH ×2 (16:04→23:49)
[2018-11-22] MEDS: traZODone 50 MG TABLET PO SCH (19:54)
[2018-11-22] MEDS ORDERED: Haloperidol Lactate 5 MG/ML VIAL IVP ONE (22:59)
[2018-11-22] MEDS ORDERED: *HR* Promethazine 25 MG/ML VIAL IVP ONE (23:00)
[2018-11-23 01:52] LABS: Hematocrit 36.4 % (35.3-44.9); Hemoglobin 11.2 g/dL (11.5-15.4); Immature Granulocytes % 0.3 % (0-4); Lymphocytes # 0.3 K/mcL (0.6-4.6); Lymphocytes % 3.6 %; Mean Corpuscular HGB Conc 30.8 g/dL (31.6-35.5); Mean Corpuscular Hemoglobin 28.4 pg (28.0-33.3); Mean Corpuscular Volume 92.4 fL (83.0-100.0); Mean Platelet Volume 10.4 fL (9.4-12.4); Monocytes # 0.5 K/mcL (0.0-1.3); Monocytes % 7.3 %; Neutrophils # 6.1 K/mcL (1.6-8.9); Platelet Count 186 K/mcL (140-400); Red Blood Count 3.94 M/mcL (3.82-4.97); Red Cell Distribution Width 14.1 % (11.5-14.5); Segmented Neutrophils % 88.8 %; White Blood Count 6.9 K/mcL (4.3-11.1)
[2018-11-23 02:12] LABS: BUN/Creatinine Ratio 27 (6-26); Blood Urea Nitrogen 26 mg/dL (8-23); Calcium 8.9 mg/dL (8.6-10.3); Carbon Dioxide 30 mEq/L (23-29); Chloride 97 mEq/L (98-107); Glucose 155 mg/dL (70-105); Osmolality,Calculated 292 (280-300); Potassium 3.2 mEq/L (3.5-5.1); Sodium 137 mEq/L (136-145); eGFR For African Americans > 60 (> 60); eGFR For Non-African Americans 57 (> 60)
[2018-11-23] MEDS: Ipratropium/Albuterol Neb 3 ML IH SCH ×5 (04:27→19:50)
[2018-11-23] MEDS: *HR* Heparin 5,000 UNIT/ML VIAL SQ SCH ×2 (06:11→16:58)
[2018-11-23] MEDS: Furosemide 40 MG/4 ML VIAL IVP SCH ×2 (08:21→20:28)
[2018-11-23] MEDS: Piperacillin/Tazobactam 3.375 GM in 0.9 % Sodium Chloride Mini Bag 100 ML IVPB SCH ×3 (08:21→23:31)
[2018-11-23] MEDS: Rivastigmine Tartrate (oral) 1.5 MG CAPSULE PO SCH ×2 (08:21→20:28)
[2018-11-23] MEDS: amLODIPine 5 MG TABLET PO SCH (08:22)
[2018-11-23] MEDS: MethylPREDNISolone 40 MG/ML VIAL IVP SCH (08:22)
[2018-11-23] MEDS: Acetaminophen 325 MG TABLET PO PRN (08:25)
[2018-11-23 09:11] LABS: ABG Base Excess 12 mEq/L (-2 to 3); ABG HCO3 38 mEq/L (21-27); ABG Oxygen Saturation 96 % (95-98); ABG PCO2 59 mmHg (35-45); ABG PH 7.42 pH Units (7.32-7.45); ABG PO2 81 mmHg (85-104); ABG TCO2 40 mEq/L (20-26)
[2018-11-23] MEDS: traZODone 50 MG TABLET PO SCH (20:28)
[2018-11-24] MEDS: Ipratropium/Albuterol Neb 3 ML IH SCH ×7 (00:21→23:32)
[2018-11-24 01:55] LABS: INR 0.9; Prothrombin Time 10.6 Seconds (9.4-12.1)
[2018-11-24] MEDS: *HR* Heparin 5,000 UNIT/ML VIAL SQ SCH ×2 (05:06→16:28)
[2018-11-24] MEDS: Piperacillin/Tazobactam 3.375 GM in 0.9 % Sodium Chloride Mini Bag 100 ML IVPB SCH ×3 (07:19→23:12)
[2018-11-24] MEDS: Furosemide 40 MG/4 ML VIAL IVP SCH ×2 (07:20→21:39)
[2018-11-24] MEDS: MethylPREDNISolone 40 MG/ML VIAL IVP SCH (07:20)
[2018-11-24] MEDS: Rivastigmine Tartrate (oral) 1.5 MG CAPSULE PO SCH ×2 (07:20→21:40)
[2018-11-24] MEDS: amLODIPine 5 MG TABLET PO SCH (07:20)
[2018-11-24 09:20] LABS: Basophils % 0.1 %; Hematocrit 41.4 % (35.3-44.9); Immature Granulocytes % 0.4 % (0-4); Lymphocytes # 0.5 K/mcL (0.6-4.6); Lymphocytes % 5.2 %; Mean Corpuscular HGB Conc 30.9 g/dL (31.6-35.5); Mean Corpuscular Hemoglobin 28.5 pg (28.0-33.3); Mean Corpuscular Volume 92.2 fL (83.0-100.0); Mean Platelet Volume 9.5 fL (9.4-12.4); Monocytes # 0.6 K/mcL (0.0-1.3); Monocytes % 5.9 %; Neutrophils # 9.2 K/mcL (1.6-8.9); Platelet Count 218 K/mcL (140-400); Red Blood Count 4.49 M/mcL (3.82-4.97); Red Cell Distribution Width 14.6 % (11.5-14.5); Segmented Neutrophils % 88.4 %
[2018-11-24 09:26] LABS: Hemoglobin 12.8 g/dL (11.5-15.4); White Blood Count 10.4 K/mcL (4.3-11.1)
[2018-11-24 09:40] LABS: BUN/Creatinine Ratio 23 (6-26); Blood Urea Nitrogen 18 mg/dL (8-23); Calcium 9.1 mg/dL (8.6-10.3); Carbon Dioxide 38 mEq/L (23-29); Chloride 97 mEq/L (98-107); Glucose 128 mg/dL (70-105); Osmolality,Calculated 290 (280-300); Potassium 3.4 mEq/L (3.5-5.1); Sodium 138 mEq/L (136-145); eGFR For African Americans > 60 (> 60); eGFR For Non-African Americans > 60 (> 60)
[2018-11-24] MEDS: Acetaminophen 325 MG TABLET PO PRN (11:04)
[2018-11-24] MEDS ORDERED: Lidocaine -MPF 2% 2 ML VIAL ONE (13:03)
[2018-11-24] MEDS ORDERED: *HR* Propofol 200 MG/20 ML VIAL IVP ONE (13:03)
[2018-11-24] MEDS ORDERED: Lidocaine -MPF 4% 5 ML AMPUL ONE (13:03)
[2018-11-24] MEDS ORDERED: *HR* Succinylcholine 200 MG/10 ML VIAL IVP ONE (13:03)
[2018-11-24] MEDS ORDERED: EPHEDrine 50 MG/ML VIAL ONE (13:17)
[2018-11-24] MEDS ORDERED: Dexamethasone 4 MG/ML VIAL ONE (13:18)
[2018-11-24] MEDS ORDERED: Ondansetron 4 MG/2 ML VIAL ONE (13:18)
[2018-11-24 19:37] LABS: Total Protein,Pleural Fluid 3.1 g/dL
[2018-11-24] MEDS: traZODone 50 MG TABLET PO SCH (21:40)
[2018-11-24 21:52] LABS: Appearance of Body Fluid Slightly Hazy (Clear); Volume of Body Fluid 650 mL
[2018-11-25 02:04] LABS: Hematocrit 42.4 % (35.3-44.9); Hemoglobin 12.5 g/dL (11.5-15.4); Immature Granulocytes % 0.3 % (0-4); Lymphocytes # 0.2 K/mcL (0.6-4.6); Lymphocytes % 3.4 %; Mean Corpuscular HGB Conc 29.5 g/dL (31.6-35.5); Mean Corpuscular Volume 94.9 fL (83.0-100.0); Mean Platelet Volume 9.7 fL (9.4-12.4); Monocytes # 0.3 K/mcL (0.0-1.3); Monocytes % 5.1 %; Neutrophils # 5.4 K/mcL (1.6-8.9); Platelet Count 207 K/mcL (140-400); Red Blood Count 4.47 M/mcL (3.82-4.97); Red Cell Distribution Width 14.7 % (11.5-14.5); Segmented Neutrophils % 91.2 %; White Blood Count 5.9 K/mcL (4.3-11.1)
[2018-11-25 02:29] LABS: BUN/Creatinine Ratio 21 (6-26); Blood Urea Nitrogen 17 mg/dL (8-23); Calcium 8.8 mg/dL (8.6-10.3); Carbon Dioxide 42 mEq/L (23-29); Chloride 94 mEq/L (98-107); Glucose 157 mg/dL (70-105); Osmolality,Calculated 303 (280-300); Potassium 4.1 mEq/L (3.5-5.1); Sodium 144 mEq/L (136-145); eGFR For African Americans > 60 (> 60); eGFR For Non-African Americans > 60 (> 60)
[2018-11-25] MEDS: Ipratropium/Albuterol Neb 3 ML IH SCH ×5 (03:51→20:06)
[2018-11-25] MEDS: *HR* Heparin 5,000 UNIT/ML VIAL SQ SCH ×2 (05:08→17:44)
[2018-11-25] MEDS: Rivastigmine Tartrate (oral) 1.5 MG CAPSULE PO SCH ×2 (08:27→21:06)
[2018-11-25] MEDS: amLODIPine 5 MG TABLET PO SCH (08:27)
[2018-11-25] MEDS: Furosemide 40 MG/4 ML VIAL IVP SCH ×2 (08:27→21:17)
[2018-11-25] MEDS: Piperacillin/Tazobactam 3.375 GM in 0.9 % Sodium Chloride Mini Bag 100 ML IVPB SCH ×3 (08:28→13:51)
[2018-11-25] MEDS: MethylPREDNISolone 40 MG/ML VIAL IVP SCH (08:28)
[2018-11-25 14:31] LABS: ABG Base Excess 19 mEq/L (-2 to 3); ABG HCO3 50 mEq/L (21-27); ABG Oxygen Saturation 94 % (95-98); ABG PCO2 95 mmHg (35-45); ABG PH 7.33 pH Units (7.32-7.45); ABG PO2 82 mmHg (85-104); ABG TCO2 > 50 mEq/L (20-26)
[2018-11-25 18:01] LABS: ABG Base Excess 21 mEq/L (-2 to 3); ABG HCO3 50 mEq/L (21-27); ABG Oxygen Saturation 97 % (95-98); ABG PCO2 75 mmHg (35-45); ABG PH 7.43 pH Units (7.32-7.45); ABG PO2 92 mmHg (85-104); ABG TCO2 > 50 mEq/L (20-26)
[2018-11-25] MEDS: traZODone 50 MG TABLET PO SCH (21:07)
[2018-11-26] MEDS: Ipratropium/Albuterol Neb 3 ML IH SCH ×7 (00:14→23:49)
[2018-11-26 04:26] LABS: Hematocrit 43.5 % (35.3-44.9); Hemoglobin 12.7 g/dL (11.5-15.4); Immature Granulocytes % 0.3 % (0-4); Lymphocytes # 0.7 K/mcL (0.6-4.6); Mean Corpuscular HGB Conc 29.2 g/dL (31.6-35.5); Mean Corpuscular Hemoglobin 28.2 pg (28.0-33.3); Mean Corpuscular Volume 96.7 fL (83.0-100.0); Mean Platelet Volume 9.7 fL (9.4-12.4); Monocytes # 0.6 K/mcL (0.0-1.3); Neutrophils # 6.2 K/mcL (1.6-8.9); Platelet Count 205 K/mcL (140-400); Red Cell Distribution Width 14.4 % (11.5-14.5); Segmented Neutrophils % 82.7 %; White Blood Count 7.5 K/mcL (4.3-11.1)
[2018-11-26 04:42] LABS: BUN/Creatinine Ratio 30 (6-26); Blood Urea Nitrogen 26 mg/dL (8-23); Calcium 9.2 mg/dL (8.6-10.3); Carbon Dioxide 43 mEq/L (23-29); Chloride 93 mEq/L (98-107); Glucose 172 mg/dL (70-105); Osmolality,Calculated 305 (280-300); Potassium 3.6 mEq/L (3.5-5.1); Sodium 143 mEq/L (136-145); eGFR For African Americans > 60 (> 60); eGFR For Non-African Americans > 60 (> 60)
[2018-11-26] MEDS: *HR* Heparin 5,000 UNIT/ML VIAL SQ SCH ×2 (05:49→17:03)
[2018-11-26] MEDS: MethylPREDNISolone 40 MG/ML VIAL IVP SCH (08:06)
[2018-11-26] MEDS: Furosemide 40 MG/4 ML VIAL IVP SCH (08:06)
[2018-11-26] MEDS: Rivastigmine Tartrate (oral) 1.5 MG CAPSULE PO SCH ×2 (08:07→20:05)
[2018-11-26] MEDS: Piperacillin/Tazobactam 3.375 GM in 0.9 % Sodium Chloride Mini Bag 100 ML IVPB SCH ×3 (08:07→17:04)
[2018-11-26] MEDS: Acetaminophen 325 MG TABLET PO PRN (08:07)
[2018-11-26] MEDS: amLODIPine 5 MG TABLET PO SCH (08:07)
[2018-11-26] MEDS: traZODone 50 MG TABLET PO SCH (20:08)
[2018-11-27 01:15] LABS: BUN/Creatinine Ratio 33 (6-26); Blood Urea Nitrogen 27 mg/dL (8-23); Calcium 9.2 mg/dL (8.6-10.3); Carbon Dioxide 44 mEq/L (23-29); Chloride 95 mEq/L (98-107); Glucose 117 mg/dL (70-105); Osmolality,Calculated 304 (280-300); Potassium 3.4 mEq/L (3.5-5.1); Sodium 144 mEq/L (136-145); eGFR For African Americans > 60 (> 60); eGFR For Non-African Americans > 60 (> 60)
[2018-11-27] MEDS: Piperacillin/Tazobactam 3.375 GM in 0.9 % Sodium Chloride Mini Bag 100 ML IVPB SCH ×2 (03:04→09:12)
[2018-11-27] MEDS: Ipratropium/Albuterol Neb 3 ML IH SCH ×3 (04:11→11:19)
[2018-11-27 04:55] LABS: ABG Base Excess 19 mEq/L (-2 to 3); ABG HCO3 47 mEq/L (21-27); ABG Oxygen Saturation 89 % (95-98); ABG PCO2 61 mmHg (35-45); ABG PH 7.49 pH Units (7.32-7.45); ABG PO2 55 mmHg (85-104); ABG TCO2 49 mEq/L (20-26)
[2018-11-27] MEDS: *HR* Heparin 5,000 UNIT/ML VIAL SQ SCH (06:01)
[2018-11-27] MEDS ORDERED: predniSONE 20 MG TABLET PO SCH (09:00)
[2018-11-27] MEDS ORDERED: Furosemide 20 MG/2 ML VIAL IVP SCH (09:00)
[2018-11-27] MEDS: amLODIPine 5 MG TABLET PO SCH (09:12)
[2018-11-27] MEDS: Rivastigmine Tartrate (oral) 1.5 MG CAPSULE PO SCH (09:12)
[2018-11-27 11:36] VITALS: BP 139/69
== END 2018-11-27 12:11 | DRG 291 ==
LOC: EMEROOARM 20:57 → 2NNU 20:57 → SUATTDRO 22:57 → 2NNU 23:34 → SUATTDRO 11-23 11:31
PROVIDERS: ADMIT Internal Medicine; ATTEND Internal Medicine